=== PATIENT | female | born 1970 | race Caucasian/White ===

== ENCOUNTER → 2018-01-27 11:14 | Outpatient (CLI) | payer BC, SELFPAY ==
[2018-01-27 14:30] LABS: Alanine Aminotransferase 88 U/L (12-78); Albumin Level 3.8 gm/dL (3.4-5.0); Albumin/Globulin Ratio 1.1 (1.1-1.8); Alkaline Phosphatase 59 U/L (46-116); Anion Gap 13.3 mEq/L (5-15); Aspartate Amino Transferase 98 U/L (15-37); Bilirubin,Total 0.3 mg/dL (0.2-1.0); Blood Urea Nitrogen 21 mg/dL (7-18); Calcium 9.1 mg/dL (8.5-10.1); Carbon Dioxide 27 mmol/L (21.0-32.0); Chloride 102 mmol/L (98-107); Chol/HDL Ratio 4.1 (1-3.5); Cholesterol 198 mg/dL (140-200); Creatinine,Serum 0.92 mg/dL (0.55-1.02); Estimated Glomerular Filt Rate 65 ml/min (>60); GFR (African American) 79 ML/MIN (>60); Globulin 3.4 gm/dl (1.3-3.2); Glucose 280 mg/dL (74-106); HDL Cholesterol 48 mg/dL (29-89); LDL Cholesterol 94 mg/dL (0-130); Potassium 4.3 mmoL/L (3.5-5.1); Sodium 138 mmol/L (136-145); Thyroid Stimulating Hormone 3.34 uIU/ml (0.358-3.740); Total Protein,Serum 7.2 gm/dL (6.4-8.2); Triglycerides 279 mg/dL (30-200); VLDL Cholesterol 56 mg/dL (0-40)
[2018-01-27 14:52] LABS: Hemoglobin A1C 7.2 % (0.0-7.0)
[2018-01-28 12:37] LABS: Vitamin D 25 Hydroxy 24.8 ng/mL (30.0-100.0)
[2018-02-01 11:23] LABS: Hep A Ab, IgM Negative (Negative); Hepatitis B Core Antibody IgM Negative (Negative); Hepatitis B Surface Antigen Negative (Negative)
[2018-02-02 11:25] LABS: Hepatitis C Antibody <0.1 s/co ratio (0.0-0.9)
== END ==
PROVIDERS: Internal Medicine Adolescent Medicine; PCP Nurse Practitioner Family; Visit Provider Nurse Practitioner Family
DX: Z00.00 Encounter for general adult medical examination without abnormal findings (principal); E11.40 Type 2 diabetes mellitus with diabetic neuropathy, unspecified; I10 Essential (primary) hypertension; E03.9 Hypothyroidism, unspecified; E55.9 Vitamin D deficiency, unspecified; R74.8 Abnormal levels of other serum enzymes
CPT/HCPCS: 36415; 80053; 80061; 80074; 82652; 83036; 84443

== ENCOUNTER → 2018-02-11 08:38 | Outpatient (CLI) | payer BC, SELFPAY ==
--- NOTE | 2018-02-11 08:45 | US_ITS ---
US liver HISTORY: ITS.REASON: ELEVATED LIVER ENZYMES ORDERING PHYSICIAN: Alaina Boykin PATIENT AGE: 48 years COMPARISON: None FINDINGS: PANCREAS:Unremarkable. No obvious mass or abnormal fluid collection. No ductal dilatation LIVER:There is fatty liver. No focal liver lesions demonstrated. No biliary dilatation. There is appropriate directional blood flow within a nondilated portal vein RIGHT KIDNEY:Unremarkable. Normal size and echogenicity. No hydronephrosis Prior cholecystectomy. Common bile duct is normal at 4 mm. IMPRESSION: Fatty liver otherwise negative right upper quadrant ultrasound. Prior cholecystectomy
== END ==
PROVIDERS: Family Provider Nurse Practitioner Family; PCP Nurse Practitioner Family; Visit Provider Nurse Practitioner Family
DX: R74.8 Abnormal levels of other serum enzymes (principal)
CPT/HCPCS: 76705

== ENCOUNTER → 2018-08-16 14:39 | Outpatient (CLI) | payer BC, SELFPAY ==
[2018-08-16 14:57] LABS: Basophils % 0.3 % (0.1-2.0); Eosinophils # 0.2 K/mm3 (0.0-0.4); Eosinophils % 2.5 % (0.1-12.0); Hematocrit 42.6 % (37.0-47.0); Hemoglobin 14.1 g/dL (12.2-16.2); Lymphocytes % 25.3 % (10-50); Mean Corpuscular HGB Conc 33.1 g/dL (31.8-35.4); Mean Corpuscular Hemoglobin 27.8 pg (27.0-31.2); Mean Corpuscular Volume 84.1 fl (81-99); Mean Platelet Volume 7.9 fl (7.4-10.4); Monocytes # 0.4 K/mm3 (0.1-1.0); Monocytes % 4.9 % (1.7-9.3); Neutrophils # 5.4 K/mm3 (1.8-7.8); Platelet Count 357 K/mm3 (142-424); Red Blood Count 5.06 M/mm3 (4.20-5.40); Red Cell Distribution Width 13.9 % (11.5-17.5); White Blood Count 8.1 K/mm3 (4.8-10.8)
[2018-08-16 15:50] LABS: Alanine Aminotransferase 49 U/L (12-78); Albumin/Globulin Ratio 1.1 (1.1-1.8); Alkaline Phosphatase 46 U/L (46-116); Anion Gap 18.2 mEq/L (5-15); Aspartate Amino Transferase 28 U/L (15-37); Bilirubin,Total 0.4 mg/dL (0.2-1.0); Blood Urea Nitrogen 23 mg/dL (7-18); Calcium 9.6 mg/dL (8.5-10.1); Carbon Dioxide 21 mmol/L (21.0-32.0); Chloride 105 mmol/L (98-107); Chol/HDL Ratio 7.3 (1-3.5); Cholesterol 278 mg/dL (140-200); Creatinine,Serum 1.02 mg/dL (0.55-1.02); Estimated Glomerular Filt Rate 57 ml/min (>60); Free Thyroxine Index 2.6 ug/dL (5.93-13.13); GFR (African American) 69 ML/MIN (>60); Globulin 3.8 gm/dl (1.3-3.2); Glucose 101 mg/dL (74-106); HDL Cholesterol 38 mg/dL (29-89); LDL Cholesterol 201 mg/dL (0-130); Potassium 4.2 mmoL/L (3.5-5.1); Sodium 140 mmol/L (136-145); T4 (Thyroxine) 7.4 ug/dl (4.7-13.3); Thyroid Stimulating Hormone 0.97 uIU/ml (0.358-3.740); Total Protein,Serum 7.8 gm/dL (6.4-8.2); Triglycerides 194 mg/dL (30-200); Triiodothryronine (T3) Uptake 35 % (31-39); VLDL Cholesterol 39 mg/dL (0-40)
[2018-08-18 08:18] LABS: Vitamin B12 206 pg/mL (232-1245)
== END ==
PROVIDERS: Visit Provider Internal Medicine Adolescent Medicine
DX: E78.5 Hyperlipidemia, unspecified (principal); E11.42 Type 2 diabetes mellitus with diabetic polyneuropathy
CPT/HCPCS: 36415; 80053; 80061; 82607; 83036; 84436; 84443; 84479; 85025

== ENCOUNTER → 2018-11-16 09:51 | Outpatient (CLI) | payer BC, SELFPAY ==
[2018-11-16 11:42] LABS: Anion Gap 17.2 mEq/L (5-15); Blood Urea Nitrogen 22 mg/dL (7-18); Calcium 9.5 mg/dL (8.5-10.1); Carbon Dioxide 24 mmol/L (21.0-32.0); Chloride 106 mmol/L (98-107); Creatinine,Serum 0.82 mg/dL (0.55-1.02); Estimated Glomerular Filt Rate 74 ml/min (>60); GFR (African American) 89 ML/MIN (>60); Glucose 105 mg/dL (74-106); Potassium 4.2 mmoL/L (3.5-5.1); Sodium 143 mmol/L (136-145)
== END ==
PROVIDERS: Visit Provider Specialist
DX: E78.5 Hyperlipidemia, unspecified (principal); I10 Essential (primary) hypertension; I63.9 Cerebral infarction, unspecified; I65.29 Occlusion and stenosis of unspecified carotid artery; G47.33 Obstructive sleep apnea (adult) (pediatric)
CPT/HCPCS: 36415; 80048

== ENCOUNTER → 2018-11-17 10:38 | Outpatient (CLI) | payer BC, SELFPAY ==
--- NOTE | 2018-11-17 10:42 | CT_ITS ---
CT angio head INDICATION: Headache, carotid stenosis ITS.REASON: cva, carotid stenosis ORDERING PHYSICIAN: Danielle Choi MD PATIENT AGE: 48 years COMPARISON: None TECHNIQUE: Contrast Used:100ml Optiray 350 Oral Contrast: Axial images were obtained. Sagittal and coronal reformatted images are reviewed as well. All CT scans at the facility use one or more dose reduction, viz: automated exposure control, ma/kV adjustment per patient size (including targeted exams where dose is matched to indication, i.e. head), or iterative reconstruction technique. FINDINGS: There is calcific plaque involving the cavernous portion of the carotid arteries on both sides. This plaque is causing a 50% stenosis of the ICA. Less than 50% stenosis noted within the left ICA within the cavernous area. No obvious aneurysm or intracranial occlusion. No AVM. There is an old left occipital infarction and there are bilateral lacunar infarctions of the basal ganglia.. The basilar artery is supplied only by the dominant left vertebral artery. IMPRESSION: 1. Intracranial atherosclerotic changes of the carotid arteries with 50% stenosis of the ICA in the cavernous region on the right and less than 50% stenosis on the left. 2. 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 Of note, there is a moderate to high-grade stenosis involving the ostium of the left vertebral artery off of the subclavian artery as seen on the CTA of the neck
--- NOTE | 2018-11-17 10:42 | CT_ITS ---
CT angio neck INDICATION: Headaches, carotid stenosis ITS.REASON: cva, carotid stenosis ORDERING PHYSICIAN: Danielle Choi MD PATIENT AGE: 48 years COMPARISON: None TECHNIQUE: Contrast Used:100ml Optiray 350 Oral Contrast: Axial images were obtained. Sagittal and coronal reformatted images are reviewed as well. All CT scans at the facility use one or more dose reduction, viz: automated exposure control, ma/kV adjustment per patient size (including targeted exams where dose is matched to indication, i.e. head), or iterative reconstruction technique. FINDINGS: The aortic arch show some mild atheromatous calcification. No significant stenosis of the great vessels. Right carotid: Minimal amount of plaque is present at the ostium of the right common carotid artery with no significant stenosis Mild atheromatous change at the ostium of the right internal carotid artery with approximately 10-15 % stenosis. Incidental note is made of medial retropharyngeal location of the right internal carotid artery. Left carotid: Mild atheromatous change at the ostium of the left internal carotid with 10-15% stenosis. The mid and distal aspect of the left ICA has an unremarkable appearance Vertebrals: The right vertebral is very small and does not contribute to the basilar system. There is short segment high-grade stenosis of the ostium of the left vertebral artery of approximately 60% with mild poststenotic dilatation. The remaining vertebral artery on the left has an unremarkable appearance within the neck. IMPRESSION: 1. Only mild amount of plaque at the ostium of both internal carotids with 10-15% stenosis. No significant stenosis of the carotid. 2. Very small/atrophic right vertebral artery which does not appear to contribute to the basilar system 3. Moderate to high-grade stenosis of the ostium of the left vertebral artery of approximately 60% with mild poststenotic dilatation. Does the patient has vertebrobasilar insufficiency symptoms?
== END ==
PROVIDERS: PCP Nurse Practitioner Family; Visit Provider Specialist
DX: I63.9 Cerebral infarction, unspecified (principal); I65.29 Occlusion and stenosis of unspecified carotid artery; I67.2 Cerebral atherosclerosis; E78.5 Hyperlipidemia, unspecified; G47.33 Obstructive sleep apnea (adult) (pediatric); I10 Essential (primary) hypertension
CPT/HCPCS: 70496; 70498; Q9967

== ENCOUNTER → 2019-10-28 07:07 | Outpatient (CLI) | payer BC, SELFPAY ==
[2019-10-28 07:30] LABS: Basophils # 0.1 K/mm3 (0-0.2); Basophils % 0.5 % (0.1-2.0); Eosinophils # 0.2 K/mm3 (0.0-0.4); Eosinophils % 2.4 % (0.1-12.0); Hematocrit 43.8 % (37.0-47.0); Hemoglobin 14.6 g/dL (12.2-16.2); Lymphocytes # 3.1 K/mm3 (0.7-4.5); Lymphocytes % 32.8 % (10-50); Mean Corpuscular HGB Conc 33.3 g/dL (31.8-35.4); Mean Corpuscular Hemoglobin 28.1 pg (27.0-31.2); Mean Corpuscular Volume 84.6 fl (81-99); Mean Platelet Volume 8.2 fl (7.4-10.4); Monocytes # 0.4 K/mm3 (0.1-1.0); Monocytes % 4.4 % (1.7-9.3); Neutrophils # 5.7 K/mm3 (1.8-7.8); Neutrophils % 59.9 % (37.0-80.0); Platelet Count 268 K/mm3 (142-424); Red Blood Count 5.18 M/mm3 (4.20-5.40); Red Cell Distribution Width 14.6 % (11.5-17.5); White Blood Count 9.5 K/mm3 (4.8-10.8)
[2019-10-28 08:06] LABS: Hemoglobin A1C 6.5 % (4.0-6.0)
[2019-10-28 14:50] LABS: Alanine Aminotransferase 27 U/L (12-78); Albumin Level 4.5 g/dl (3.5-5.0); Albumin/Globulin Ratio 1.7 (1.1-1.8); Alkaline Phosphatase 82 U/L (38-126); Anion Gap 15.6 mEq/L (5-15); Aspartate Amino Transferase 32 U/L (14-36); Bilirubin,Total 0.2 mg/dl (0.2-1.3); Blood Urea Nitrogen 24 mg/dl (7-17); Calcium 9.6 mg/dl (8.4-10.2); Carbon Dioxide 25 mmol/L (22.0-30.0); Chloride 101 mmol/L (98-107); Chol/HDL Ratio 3.1 (1-3.5); Cholesterol 144 mg/dl (140-200); Estimated Glomerular Filt Rate 76 ml/min (>60); GFR (African American) 92 ML/MIN (>60); Globulin 2.7 g/dL (1.3-3.2); Glucose 130 mg/dl (74-100); HDL Cholesterol 47 mg/dl (40-60); Potassium 4.6 mmoL/L (3.5-5.1); Sodium 137 mmol/L (136-145); Total Protein,Serum 7.2 g/dl (6.3-8.2); Triglycerides 177 mg/dl (30-150); VLDL Cholesterol 35 mg/dL (0-40)
[2019-10-28 15:01] LABS: Direct LDL Cholesterol 88.46 mg/dL (100-129)
[2019-10-28 15:21] LABS: Thyroid Stimulating Hormone 0.86 uIU/mL (0.465-4.68)
== END ==
PROVIDERS: Visit Provider Internal Medicine Adolescent Medicine
DX: E78.5 Hyperlipidemia, unspecified (principal); E03.9 Hypothyroidism, unspecified; E11.42 Type 2 diabetes mellitus with diabetic polyneuropathy; Z79.84 Long term (current) use of oral hypoglycemic drugs
CPT/HCPCS: 36415; 80053; 80061; 83036; 84443; 85025

== ENCOUNTER → 2020-05-01 12:39 | Outpatient (CLI) | payer BC, SELFPAY ==
[2020-05-01 13:03] LABS: Basophils # 0.1 K/mm3 (0-0.2); Basophils % 0.7 % (0.1-2.0); Eosinophils # 0.2 K/mm3 (0.0-0.4); Eosinophils % 2.5 % (0.1-12.0); Hematocrit 49.1 % (37.0-47.0); Hemoglobin 15.7 g/dL (12.2-16.2); Lymphocytes # 2.5 K/mm3 (0.7-4.5); Lymphocytes % 25.6 % (10-50); Mean Corpuscular HGB Conc 31.9 g/dL (31.8-35.4); Mean Corpuscular Hemoglobin 28.2 pg (27.0-31.2); Mean Corpuscular Volume 88.3 fl (81-99); Mean Platelet Volume 8.2 fl (7.4-10.4); Monocytes # 0.4 K/mm3 (0.1-1.0); Monocytes % 3.8 % (1.7-9.3); Neutrophils # 6.5 K/mm3 (1.8-7.8); Neutrophils % 67.5 % (37.0-80.0); Platelet Count 308 K/mm3 (142-424); Red Blood Count 5.56 M/mm3 (4.20-5.40); Red Cell Distribution Width 14.9 % (11.5-17.5); White Blood Count 9.6 K/mm3 (4.8-10.8)
[2020-05-01 14:23] LABS: Alanine Aminotransferase 43 U/L (12-78); Albumin Level 5.2 g/dl (3.5-5.0); Albumin/Globulin Ratio 1.5 (1.1-1.8); Alkaline Phosphatase 64 U/L (38-126); Anion Gap 20.1 mEq/L (5-15); Aspartate Amino Transferase 37 U/L (14-36); Bilirubin,Total 0.6 mg/dl (0.2-1.3); Blood Urea Nitrogen 30 mg/dl (7-17); Calcium 10.8 mg/dl (8.4-10.2); Carbon Dioxide 25 mmol/L (22.0-30.0); Chloride 103 mmol/L (98-107); Chol/HDL Ratio 4.2 (1-3.5); Cholesterol 176 mg/dl (140-200); Estimated Glomerular Filt Rate 66 ml/min (>60); GFR (African American) 80 ML/MIN (>60); Globulin 3.4 g/dL (1.3-3.2); Glucose 157 mg/dl (74-100); HDL Cholesterol 42 mg/dl (40-60); Potassium 5.1 mmoL/L (3.5-5.1); Sodium 143 mmol/L (136-145); Total Protein,Serum 8.6 g/dl (6.3-8.2); Triglycerides 170 mg/dl (30-150); VLDL Cholesterol 34 mg/dL (0-40)
[2020-05-01 14:39] LABS: 25-OH Vitamin D, Total 26.1 ng/mL (30-100)
[2020-05-01 14:54] LABS: Thyroid Stimulating Hormone 0.36 uIU/mL (0.465-4.68)
[2020-05-01 17:40] LABS: Hemoglobin A1C 6.8 % (4.0-6.0)
== END ==
PROVIDERS: Visit Provider Internal Medicine Adolescent Medicine
DX: E11.40 Type 2 diabetes mellitus with diabetic neuropathy, unspecified (principal); E03.9 Hypothyroidism, unspecified; E55.9 Vitamin D deficiency, unspecified; Z79.84 Long term (current) use of oral hypoglycemic drugs
CPT/HCPCS: 36415; 80053; 80061; 82306; 83036; 84443; 85025

== ENCOUNTER → 2020-08-31 09:34 | Outpatient (CLI) | payer BC, SELFPAY ==
[2020-08-31 12:12] LABS: Chloride 106 mmol/L (98-107); Sodium 139 mmol/L (136-145)
[2020-08-31 12:13] LABS: Potassium 4.6 mmoL/L (3.5-5.1)
[2020-08-31 12:15] LABS: Blood Urea Nitrogen 20 mg/dl (7-17); Estimated Glomerular Filt Rate 88 ml/min (>60); GFR (African American) 106 ML/MIN (>60)
[2020-08-31 12:16] LABS: Anion Gap 17.6 mEq/L (5-15); Calcium 9.7 mg/dl (8.4-10.2); Carbon Dioxide 20 mmol/L (22.0-30.0); Glucose 142 mg/dl (74-100)
[2020-08-31 12:31] LABS: Hemoglobin A1C 6.9 % (4.0-6.0)
== END ==
PROVIDERS: Visit Provider Internal Medicine Adolescent Medicine
DX: E11.40 Type 2 diabetes mellitus with diabetic neuropathy, unspecified (principal); Z79.84 Long term (current) use of oral hypoglycemic drugs
CPT/HCPCS: 36415; 80048; 83036

== ENCOUNTER → 2021-03-17 17:13 | Outpatient (CLI) | payer BC, SELFPAY ==
[2021-03-17 17:55] LABS: Basophils # 0.1 K/mm3 (0-0.2); Basophils % 1.7 % (0.1-2.0); Eosinophils # 0.2 K/mm3 (0.0-0.4); Eosinophils % 3.2 % (0.1-12.0); Hematocrit 45.5 % (37.0-47.0); Hemoglobin 15.2 g/dL (12.2-16.2); Lymphocytes # 2.7 K/mm3 (0.7-4.5); Lymphocytes % 39.2 % (10-50); Mean Corpuscular HGB Conc 33.3 g/dL (31.8-35.4); Mean Corpuscular Hemoglobin 28.7 pg (27.0-31.2); Mean Corpuscular Volume 86.2 fl (81-99); Mean Platelet Volume 8.8 fl (7.4-10.4); Monocytes # 0.3 K/mm3 (0.1-1.0); Monocytes % 4.6 % (1.7-9.3); Neutrophils # 3.6 K/mm3 (1.8-7.8); Neutrophils % 51.3 % (37.0-80.0); Platelet Count 375 K/mm3 (142-424); Red Blood Count 5.28 M/mm3 (4.20-5.40); Red Cell Distribution Width 14.1 % (11.5-17.5); White Blood Count 6.9 K/mm3 (4.8-10.8)
[2021-03-17 18:05] LABS: Hemoglobin A1C 6.5 % (4.0-6.0)
[2021-03-17 18:59] LABS: Alanine Aminotransferase 42 U/L (12-78); Albumin Level 4.8 g/dl (3.5-5.0); Albumin/Globulin Ratio 1.7 (1.1-1.8); Alkaline Phosphatase 57 U/L (38-126); Anion Gap 18.1 mEq/L (5-15); Aspartate Amino Transferase 35 U/L (14-36); Bilirubin,Total 0.3 mg/dl (0.2-1.3); Blood Urea Nitrogen 29 mg/dl (7-17); Calcium 10.4 mg/dl (8.4-10.2); Carbon Dioxide 26 mmol/L (22.0-30.0); Chloride 101 mmol/L (98-107); Chol/HDL Ratio 3.1 (1-3.5); Cholesterol 137 mg/dl (140-200); Estimated Glomerular Filt Rate 65 ml/min (>60); GFR (African American) 79 ML/MIN (>60); Globulin 2.8 g/dL (1.3-3.2); Glucose 145 mg/dl (74-100); HDL Cholesterol 44 mg/dl (40-60); Potassium 5.1 mmoL/L (3.5-5.1); Sodium 140 mmol/L (136-145); Total Protein,Serum 7.6 g/dl (6.3-8.2); Triglycerides 218 mg/dl (30-150); VLDL Cholesterol 44 mg/dL (0-40)
[2021-03-17 19:11] LABS: Direct LDL Cholesterol 104.17 mg/dL (100-129)
[2021-03-17 19:33] LABS: Thyroid Stimulating Hormone 0.28 uIU/mL (0.465-4.68)
== END ==
PROVIDERS: Visit Provider Internal Medicine Adolescent Medicine
DX: R42 Dizziness and giddiness (principal); E11.40 Type 2 diabetes mellitus with diabetic neuropathy, unspecified; E03.9 Hypothyroidism, unspecified; Z79.84 Long term (current) use of oral hypoglycemic drugs
CPT/HCPCS: 36415; 80053; 80061; 83036; 84443; 85025

== ENCOUNTER → 2021-05-07 10:16 | Outpatient (CLI) | payer BC, SELFPAY | PROVIDERS: PCP Internal Medicine Adolescent Medicine; Visit Provider Nurse Practitioner | DX: U07.1 COVID-19 (principal) | CPT/HCPCS: C9803; U0003; U0005 ==

== ENCOUNTER → 2021-05-16 15:12 | Outpatient (CLI) | payer BC, SELFPAY | PROVIDERS: Visit Provider Nurse Practitioner | DX: U07.1 COVID-19 (principal) | CPT/HCPCS: C9803; U0003; U0005 ==

== ENCOUNTER → 2021-09-24 10:20 | Outpatient (CLI) | payer BC, SELFPAY ==
--- NOTE | 2021-09-24 10:35 | MM_ITS ---
PROCEDURE INFORMATION: Exam: MG Bilateral Screening 3D Mammography Exam date and time: 09/24/2021 10:30 AM Age: 51 years old Clinical indication: Screening examination TECHNIQUE: Imaging protocol: Bilateral Screening tomosynthesis and 2D mammography including computer-aided detection (CAD) when performed. COMPARISON: 1. MG [facility]MSB DIG MAMM-SCREEN TOMY 03/12/2016 11:19 AM 2. MG DMSB DIG MAMM-SCREEN TOMY 12/30/2012 10:52 AM FINDINGS: MAMMOGRAPHY: Breast composition: The breast is heterogeneously dense, which may obscure small masses. Mass: None. Architectural distortion: No new or suspicious architectural distortion. Calcifications: No new or suspicious calcifications are present Asymmetric density: No new or suspicious asymmetric density is present Skin thickening: None. Axillary adenopathy: None. IMPRESSION: No mammographic evidence of malignancy. Recommend annual screening mammography unless otherwise clinically indicated. ASSESSMENT: BI-RADS category 1: Negative
== END ==
PROVIDERS: PCP Internal Medicine Adolescent Medicine; Visit Provider Nurse Practitioner Family
DX: Z12.31 Encounter for screening mammogram for malignant neoplasm of breast (principal)
CPT/HCPCS: 77063; 77067

== ENCOUNTER → 2021-10-31 16:23 | Outpatient (CLI) | payer BC, SELFPAY ==
[2021-10-31 18:06] LABS: Thyroid Stimulating Hormone 0.56 uIU/mL (0.465-4.68)
[2021-11-02 08:13] LABS: Estradiol 42.7 pg/mL (.); Progesterone 5.6 ng/mL (.)
[2021-11-07 17:11] LABS: Testosterone, Total, LC/MS 12.1 ng/dL (.); Testosterone,Free 0.7 pg/mL (0.0-4.2)
== END ==
PROVIDERS: Visit Provider Obstetrics & Gynecology
DX: E03.9 Hypothyroidism, unspecified (principal)
CPT/HCPCS: 36415; 82670; 84144; 84402; 84403; 84443

== ENCOUNTER → 2021-11-11 16:21 | Outpatient (CLI) | payer BC, SELFPAY | PROVIDERS: PCP Internal Medicine Adolescent Medicine; Visit Provider Nurse Practitioner Family | DX: R06.83 Snoring; G47.33 Obstructive sleep apnea (adult) (pediatric) | CPT/HCPCS: G0399 ==

== ENCOUNTER → 2021-12-10 16:44 | Outpatient (CLI) | payer BC, SELFPAY ==
[2021-12-18 16:13] LABS: Cortisol,F,ug/24hr,U 10 ug/24 hr (6-42); Cortisol,F,ug/L,U 12 ug/L (Undefined)
== END ==
PROVIDERS: PCP Internal Medicine Adolescent Medicine; Visit Provider Obstetrics & Gynecology
DX: R63.5 Abnormal weight gain (principal)
CPT/HCPCS: 82530

== ENCOUNTER → 2022-02-24 10:07 | Outpatient (CLI) | payer BC, SELFPAY ==
[2022-02-24 18:28] LABS: Alanine Aminotransferase 37 U/L (12-78); Albumin Level 4.6 g/dl (3.5-5.0); Albumin/Globulin Ratio 1.5 (1.1-1.8); Alkaline Phosphatase 104 U/L (38-126); Anion Gap 19.9 mEq/L (5-15); Aspartate Amino Transferase 39 U/L (14-36); Bilirubin,Total 0.5 mg/dl (0.2-1.3); Blood Urea Nitrogen 33 mg/dl (7-17); Calcium 10.5 mg/dl (8.4-10.2); Carbon Dioxide 22 mmol/L (22.0-30.0); Chloride 105 mmol/L (98-107); Chol/HDL Ratio 5.5 (1-3.5); Cholesterol 224 mg/dl (140-200); Estimated Glomerular Filt Rate 65 ml/min (>60); GFR (African American) 79 ML/MIN (>60); Glucose 175 mg/dl (74-100); HDL Cholesterol 41 mg/dl (40-60); Potassium 4.9 mmoL/L (3.5-5.1); Sodium 142 mmol/L (136-145); Total Protein,Serum 7.6 g/dl (6.3-8.2); Triglycerides 301 mg/dl (30-150); VLDL Cholesterol 60 mg/dL (0-40)
[2022-02-24 18:39] LABS: Direct LDL Cholesterol 139.82 mg/dL (100-129)
[2022-02-24 18:44] LABS: Free T4 (Free Thyroxine) 1.23 ng/dl (0.78-2.19)
[2022-02-24 18:45] LABS: Basophils # 0.1 K/mm3 (0-0.2); Eosinophils # 0.2 K/mm3 (0.0-0.4); Eosinophils % 2.9 % (0.1-12.0); Hematocrit 45.2 % (37.0-47.0); Hemoglobin 14.6 g/dL (12.2-16.2); Lymphocytes % 25.4 % (10-50); Mean Corpuscular HGB Conc 32.2 g/dL (31.8-35.4); Mean Corpuscular Hemoglobin 28.4 pg (27.0-31.2); Mean Platelet Volume 10.2 fl (7.4-10.4); Monocytes # 0.3 K/mm3 (0.1-1.0); Monocytes % 4.3 % (1.7-9.3); Neutrophils # 5.3 K/mm3 (1.8-7.8); Neutrophils % 66.4 % (37.0-80.0); Platelet Count 336 K/mm3 (142-424); Red Blood Count 5.13 M/mm3 (4.20-5.40); Red Cell Distribution Width 13.9 % (11.5-17.5); White Blood Count 7.9 K/mm3 (4.8-10.8)
[2022-02-24 18:47] LABS: 25-OH Vitamin D, Total 29.6 ng/mL (30-100)
[2022-02-24 18:59] LABS: Thyroid Stimulating Hormone 0.21 uIU/mL (0.465-4.68)
[2022-02-24 19:08] LABS: Hemoglobin A1C 7.3 % (4.0-6.0)
[2022-02-24 19:18] LABS: Vitamin B12 279 pg/mL (239-931)
== END ==
PROVIDERS: PCP Nurse Practitioner; Visit Provider Nurse Practitioner
DX: E03.9 Hypothyroidism, unspecified (principal); I10 Essential (primary) hypertension; E11.9 Type 2 diabetes mellitus without complications; E78.5 Hyperlipidemia, unspecified; E66.9 Obesity, unspecified; Z68.33 Body mass index [BMI] 33.0-33.9, adult; Z79.84 Long term (current) use of oral hypoglycemic drugs
CPT/HCPCS: 80053; 80061; 82043; 82306; 82607; 83036; 84439; 84443; 85025

== ENCOUNTER 2022-05-09 19:09 | Emergency (ER) | payer BC, SELFPAY ==
[2022-05-09 19:10] VITALS: BP 135/92; PULSE 74; RESP 16; TEMP 36.7; O2SAT 97; BMI 35.2
--- NOTE | 2022-05-09 19:20 | ECG_ITS ---
APPROVED REPORT Exam: Resting ECG HR:79 bpm ECG Measurements Heart Rate 79 AXES ID 196 P 47 QRSd 81 QRS 46 QT 366 T 49 QTc 400 Conclusion SINUS RHYTHM LOW QRS VOLTAGE IN PRECORDIAL LEADS [QRS DEFLECTION < 1.0 mV IN CHEST LEADS] BORDERLINE ECG UNCONFIRMED REPORT Electronically signed by : Demetrio Mckeon MD 05/11/2022 19:25:11
--- NOTE | 2022-05-09 19:25 | CT_ITS ---
PROCEDURE INFORMATION: Exam: CT Head Without Contrast Exam date and time: 05/09/2022 7:36 PM Age: 52 years old Clinical indication: Stroke-like symptoms; Altered mental status/memory loss; Additional info: Neuro deficit, stroke suspected TECHNIQUE: Imaging protocol: Computed tomography of the head without contrast. Radiation optimization: All CT scans at this facility use at least one of these dose optimization techniques: automated exposure control; mA and/or kV adjustment per patient size (includes targeted exams where dose is matched to clinical indication); or iterative reconstruction. Other technique: STROKE PROTOCOL was implemented. COMPARISON: [facility] CT angio head 11/17/2018 11:01 AM FINDINGS: Brain: No intracranial hemorrhage. There is low attenuation change in the white matter most consistent with chronic age related small vessel ischemic change. No acute territorial infarction is seen. These can be initially occult on head CT. Cerebral ventricles: No ventriculomegaly. Paranasal sinuses: Visualized sinuses are unremarkable. No fluid levels. Mastoid air cells: Visualized mastoid air cells are well aerated. Bones/joints: Unremarkable. No acute fracture. Soft tissues: Unremarkable. Vasculature: Dense atherosclerosis. Other findings: ASPECTS score 10. IMPRESSION: 1. No intracranial hemorrhage. 2. There is low attenuation change in the white matter most consistent with chronic age related small vessel ischemic change. No acute territorial infarction is seen. These can be initially occult on head CT. Chronic appearing bilateral lacunar and left [employer] distribution infarctions. 3. ASPECTS score 10.
--- NOTE | 2022-05-09 19:25 | CT_ITS ---
PROCEDURE INFORMATION: Exam: CTA Head With Contrast, Arteriography Exam date and time: 05/09/2022 7:39 PM Age: 52 years old Clinical indication: Weakness; Additional info: Neuro deficit, stroke suspected, right sided weakness TECHNIQUE: Imaging protocol: Computed tomographic angiography of the head with contrast. Exam focused on the arteries. 3D rendering (Not supervised by radiologist): MIP and/or 3D reconstructed images were created by the technologist. Radiation optimization: All CT scans at this facility use at least one of these dose optimization techniques: automated exposure control; mA and/or kV adjustment per patient size (includes targeted exams where dose is matched to clinical indication); or iterative reconstruction. Contrast material: ISOVUE 370; Contrast volume: 100 ml; Contrast route: INTRAVENOUS (IV); COMPARISON: 1. [facility] CT angio head 11/17/2018 11:[address] HEAD/BRAIN WO CON 05/09/2022 7:36 PM FINDINGS: ANTERIOR CIRCULATION: Right internal carotid artery: Intracranial segment is patent with no significant stenosis. No aneurysm. Right middle cerebral artery: No occlusion or significant stenosis. No aneurysm. Right anterior cerebral artery: No occlusion or significant stenosis. No aneurysm. Left internal carotid artery: Limited atherosclerosis, primarily in the right and left carotid siphons where there are mild stenoses. Left middle cerebral artery: No occlusion or significant stenosis. No aneurysm. Left anterior cerebral artery: No occlusion or significant stenosis. No aneurysm. POSTERIOR CIRCULATION: Right vertebral artery: See Left vertebral artery finding. Left vertebral artery: Dominant left vertebral artery. There is chronic occlusion of the very diminutive distal right vertebral artery. Basilar artery: No occlusion or significant stenosis. No aneurysm. Right posterior cerebral artery: No occlusion or significant stenosis. No aneurysm. Left posterior cerebral artery: Chronic multifocal areas occlusion or near occlusion in the diminutive left posterior cerebral artery similar previous examination. Other arteries: No acute actionable abnormality of the large intracranial arteries. Brain: See Other arteries finding. Cerebral ventricles: No ventriculomegaly. Bones/joints: Unremarkable. No acute fracture. Soft tissues: Unremarkable. Other findings: Please see noncontrast head CT report. IMPRESSION: 1. Dominant left vertebral artery. There is chronic occlusion of the very diminutive distal right vertebral artery. 2. Chronic multifocal areas occlusion or near occlusion in the diminutive left posterior cerebral artery similar to the previous examination. 3. No acute actionable abnormality of the large intracranial arteries.
--- NOTE | 2022-05-09 19:25 | CT_ITS ---
PROCEDURE INFORMATION: Exam: CTA Neck With Contrast Exam date and time: 05/09/2022 7:39 PM Age: 52 years old Clinical indication: Weakness; Additional info: Neuro deficit, stroke suspected TECHNIQUE: Imaging protocol: Computed tomographic angiography of the neck with contrast. 3D rendering (Not supervised by radiologist): MIP and/or 3D reconstructed images were created by the technologist. Radiation optimization: All CT scans at this facility use at least one of these dose optimization techniques: automated exposure control; mA and/or kV adjustment per patient size (includes targeted exams where dose is matched to clinical indication); or iterative reconstruction. Contrast material: ISOVUE 370; Contrast volume: 100 ml; Contrast route: INTRAVENOUS (IV); COMPARISON: [facility] CT angio neck 11/17/2018 11:01 AM FINDINGS: Right common carotid artery: No stenosis. No dissection or occlusion. Right internal carotid artery: No stenosis of the extracranial segment. No dissection or occlusion. Right external carotid artery: No occlusion or stenosis of the origin. Left common carotid artery: No stenosis. No dissection or occlusion. Left internal carotid artery: No stenosis of the extracranial segment. No dissection or occlusion. Left external carotid artery: No occlusion or stenosis of the origin. Right vertebral artery: Very diminutive right vertebral artery, with chronic occlusion of the intracranial component. Left vertebral artery: Dominant left vertebral artery. Redemonstrated is a short segment near occlusion at the origin of the vessel with the remainder of the vessel widely patent. Soft tissues: Normal. No significant soft tissue swelling. Bones/joints: Dgyi-wr-abchugmi cervical spondylosis without CT evidence of critical stenosis. IMPRESSION: 1. Dominant left vertebral artery. Redemonstrated is a short segment near occlusion at the origin of the vessel with the remainder of the vessel widely patent. 2. Very diminutive right vertebral artery, with chronic occlusion of the intracranial component. REFERENCES: NASCET CRITERIA. The degree of stenosis in the cervical segment of the internal carotid artery is based on NASCET criteria. Normal is no stenosis. Mild is less than 50% stenosis. Moderate is 50-69% stenosis. Severe is 70% to 99% stenosis. Total occlusion is no detectable patent lumen.
[2022-05-09 19:45] VITALS: BP 128/88; PULSE 84; O2SAT 99
[2022-05-09 19:47] LABS: Chloride 103 mmol/L (98-107); Sodium 142 mmol/L (136-145)
--- NOTE | 2022-05-09 19:47 | HMH.EDNEU ---
Discharge Plan Disposition Patient Disposition: Home, Self-Care Prescriptions Prescriptions: New cephalexin [cephalexin] 500 mg capsule 500 mg PO TID Qty: 21 0RF No Action levothyroxine 75 mcg capsule 75 mcg PO DAILY Qty: 90 1RF rosuvastatin 40 mg tablet 40 mg PO HS Qty: 90 1RF metformin 1,000 mg tablet 1,000 mg PO DAILY Qty: 90 1RF lisinopril 20 mg tablet 20 mg PO DAILY Qty: 90 duloxetine 60 mg capsule,delayed release(DR/EC) 60 mg PO BID Qty: 180 sitagliptin phosphate 50 mg tablet 50 mg PO DAILY Qty: 90 atenolol 50 mg tablet 50 mg PO DAILY Qty: 90 aspirin [Aspir-81] 81 mg tablet,delayed release (DR/EC) 81 mg PO DAILY cyclobenzaprine 10 mg tablet 10 mg PO DAILY PRN (Reason: muscle relaxer) Qty: 180 meclizine 25 mg tablet 25 mg PO DAILY PRN (Reason: Nausea) Qty: 270 pregabalin 100 mg capsule 100 mg PO BID Qty: 180 1RF fluticasone propionate [Flonase Allergy Relief] 50 mcg/actuation spray,suspension 2 spray intranasal DAILY Qty: 16 2RF Rx Instructions: administer into each nostril gemfibrozil 600 mg tablet 600 mg PO BID Qty: 180 0RF peg 3350-electrolytes 4,000 ML recon soln 240 ml PO Q15M Rx Instructions: until fecal effluent is clear Referrals Follow up/Referrals: Jj Ca MD [Primary Care Provider] - See instructions Danielle Choi MD [Staff Physician] - See instructions Clinical Impressions Clinical Impression: Numbness, UTI (urinary tract infection) Instructions Patient Instructions: DI for Urinary Tract Infection (UTI) Discharge ED Provider: Ulisses Moe Neuro HPI <Ulisses Moe MD - Last Filed: 05/09/22 20:19> General Chief Complaint: Neuro Symptoms/Deficit Stated Complaint: numbness Time Seen by Provider: 05/09/22 19:15 Mode of Arrival: Ambulatory Source of Information: Patient and Spouse Limitations: No Limitations Description of Symptoms (Recalled from ER Triage Doc. by RN): pt c/o bilateral arm numbess and rt leg numbness that started a hr ago. NIH scale 0. 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 Patient states that she does have chronic right-sided deficits but says that her arms and legs on the right side feel weaker than normal. She says that her numbness is also a little worse than normal to. She does have visual changes in her right eye which are chronic. She denies any slurred speech or facial droop. She says that this happened earlier today and she was hoping they would go away but it has persisted. She denies any bowel or bladder incontinence. Denies any new visual disturbance. Denies any chest or abdominal pain. Denies any fever or chills. Denies any dysuria. Related Data Home Medications Medication Instructions Recorded Confirmed aspirin 81 mg tablet,delayed 81 mg PO DAILY [facility] 10/28/18 03/10/22 release (Aspir-) atenolol 50 mg tablet 50 mg PO DAILY bp #90 tabs 10/28/18 03/10/22 duloxetine 60 mg capsule,delayed 60 mg PO BID Pain #180 caps 10/28/18 03/10/22 release lisinopril 20 mg tablet 20 mg PO DAILY bp #90 tabs 10/28/18 03/10/22 sitagliptin phosphate 50 mg tablet 50 mg PO DAILY Diabetes #90 tabs 10/28/18 03/10/22 peg 3350-electrolytes 236 240 ml PO Q15M bowel prep 11/10/21 03/10/22 gram-22.74 gram-6.74 gram-5.86 gram solution cyclobenzaprine 10 mg tablet 10 mg PO DAILY PRN muscle relaxer 02/25/22 03/10/22 #180 tabs meclizine 25 mg tablet 25 mg PO DAILY PRN Nausea #270 tabs 02/25/22 03/10/22 Previous Rx's Medication Instructions Recorded pregabalin 100 mg capsule 100 mg PO BID Pain #180 caps 02/25/22 levothyroxine 75 mcg capsule 75 mcg PO DAILY hypothyroid #90 03/10/22 caps metformin 1,000 mg tablet 1,000 mg PO DAILY Diabet
[2022-05-09 19:48] LABS: Potassium 4.2 mmoL/L (3.5-5.1)
[2022-05-09 19:50] LABS: Alanine Aminotransferase 31 U/L (12-78); Alkaline Phosphatase 108 U/L (38-126); Anion Gap 18.2 mEq/L (5-15); Aspartate Amino Transferase 45 U/L (14-36); Bilirubin,Total 0.5 mg/dl (0.2-1.3); Blood Urea Nitrogen 35 mg/dl (7-17); Carbon Dioxide 25 mmol/L (22.0-30.0); Cholesterol 225 mg/dl (140-200); Creatinine Clearance Estimated 75 mL/min (50-200); Estimated Glomerular Filt Rate 52 ml/min (>60); GFR (African American) 63 ML/MIN (>60); Triglycerides 301 mg/dl (30-150); VLDL Cholesterol 60 mg/dL (0-40)
[2022-05-09 19:51] LABS: Albumin Level 5.1 g/dl (3.5-5.0); Albumin/Globulin Ratio 1.2 (1.1-1.8); Calcium 9.8 mg/dl (8.4-10.2); Chol/HDL Ratio 5.4 (1-3.5); Globulin 4.3 g/dL (1.3-3.2); Glucose 120 mg/dl (74-100); HDL Cholesterol 42 mg/dl (40-60); Total Protein,Serum 9.4 g/dl (6.3-8.2)
--- NOTE | 2022-05-09 19:51 | PC.NURSE ---
PER ER DOC HE DID NOT WANT TO WAIT FOR LABS FOR CT, HE SAID TO GO AHEAD, SUSPECTS PT HAD A STROKE
[2022-05-09 19:52] LABS: Basophils # 0.2 K/mm3 (0-0.2); Basophils % 2.1 % (0.1-2.0); Eosinophils # 0.2 K/mm3 (0.0-0.4); Eosinophils % 1.9 % (0.1-12.0); Hematocrit 45.6 % (37.0-47.0); Lymphocytes # 3.1 K/mm3 (0.7-4.5); Lymphocytes % 34.8 % (10-50); Mean Corpuscular HGB Conc 32.9 g/dL (31.8-35.4); Mean Corpuscular Hemoglobin 28.2 pg (27.0-31.2); Mean Corpuscular Volume 85.9 fl (81-99); Mean Platelet Volume 8.9 fl (7.4-10.4); Monocytes # 0.4 K/mm3 (0.1-1.0); Neutrophils % 57.1 % (37.0-80.0); Platelet Count 332 K/mm3 (142-424); Red Blood Count 5.31 M/mm3 (4.20-5.40); Red Cell Distribution Width 14.4 % (11.5-17.5); White Blood Count 8.8 K/mm3 (4.8-10.8)
[2022-05-09 19:55] LABS: Activated Partial Thrombo Time 27.2 seconds (22.8-30.6); INR 0.93 (0.9-1.1); Prothrombin Time 10.1 seconds (10.1-12.5)
[2022-05-09 20:00] VITALS: BP 126/79; PULSE 84; O2SAT 99
[2022-05-09 20:02] LABS: Direct LDL Cholesterol 99.58 mg/dL (100-129)
[2022-05-09 20:05] LABS: Troponin I < 0.01 ng/ml (0.00-0.034)
[2022-05-09 20:38] LABS: Microscopic, Urine URINE MICROSCOPIC (MICROSCOPIC)
[2022-05-09 20:50] LABS: Appearance,Urine SL CLOUDY (Clear); Bilirubin,Urine Negative (Negative); Blood, Urine Negative (Negative); Color,Urine YELLOW (Yellow); Glucose,Urine (UA) Negative (Negative); Ketones,Urine Negative (Negative); Leukocyte Esterase,Urine 1+ (Negative); Nitrate,Urine POSITIVE (Negative); PH,Urine 5.5 (5.0-8.5); Protein,Urine Negative (Negative); Urobilinogen,Urine 0.2 EU/dl (0.2)
[2022-05-09 20:52] LABS: Bacteria,Urine 1+ /lpf
[2022-05-09 21:08] VITALS: BP 124/71; PULSE 80; RESP 18; TEMP 36.7; O2SAT 99
== END 2022-05-09 21:10 | disposition home or self-care (01) ==
PROVIDERS: Emergency Provider Student in an Organized Health Care Education/Training Program; PCP Family Medicine
DX: R20.2 Paresthesia of skin (principal); N39.0 Urinary tract infection, site not specified; Z86.73 Personal history of transient ischemic attack (TIA), and cerebral infarction without residual deficits; F32.A Depression, unspecified; I10 Essential (primary) hypertension; E11.9 Type 2 diabetes mellitus without complications; E78.5 Hyperlipidemia, unspecified; E03.9 Hypothyroidism, unspecified; G43.909 Migraine, unspecified, not intractable, without status migrainosus; Z87.442 Personal history of urinary calculi; Z90.49 Acquired absence of other specified parts of digestive tract; Z82.49 Family history of ischemic heart disease and other diseases of the circulatory system; Z83.42 Family history of familial hypercholesterolemia
CPT/HCPCS: 70450; 70496; 70498; 80053; 80061; 81001; 84484; 85025; 85610; 85730; 87086; 87088; 87186; 93005; 96360; 99285; Q9967

== ENCOUNTER → 2022-05-22 17:05 | Outpatient (CLI) | payer BC, SELFPAY ==
[2022-05-22 19:01] LABS: Alanine Aminotransferase 33 U/L (12-78); Albumin Level 4.7 g/dl (3.5-5.0); Albumin/Globulin Ratio 1.6 (1.1-1.8); Alkaline Phosphatase 75 U/L (38-126); Anion Gap 16.7 mEq/L (5-15); Aspartate Amino Transferase 32 U/L (14-36); Bilirubin,Total 0.5 mg/dl (0.2-1.3); Blood Urea Nitrogen 30 mg/dl (7-17); Carbon Dioxide 22 mmol/L (22.0-30.0); Chloride 105 mmol/L (98-107); Estimated Glomerular Filt Rate 65 ml/min (>60); GFR (African American) 79 ML/MIN (>60); Globulin 2.9 g/dL (1.3-3.2); Glucose 118 mg/dl (74-100); Potassium 4.7 mmoL/L (3.5-5.1); Sodium 139 mmol/L (136-145); Total Protein,Serum 7.6 g/dl (6.3-8.2)
== END ==
PROVIDERS: PCP Family Medicine; Visit Provider Family Medicine
DX: E11.9 Type 2 diabetes mellitus without complications (principal); E03.9 Hypothyroidism, unspecified; Z79.84 Long term (current) use of oral hypoglycemic drugs
CPT/HCPCS: 80053; 82043; 84443

== ENCOUNTER → 2022-06-12 14:57 | Outpatient (CLI) | payer BC, SELFPAY ==
--- NOTE | 2022-06-12 15:04 | CA_ITS ---
FINAL REPORT TECHNIQUE: Color Doppler, duplex Doppler and gonzalez scale sonography of the bilateral neck arterial vasculature was performed. Velocities were measured in the carotid arteries. Stenosis evaluation based on the validated velocity criteria. CLINICAL HISTORY: CVA, TIA, HTN, HLD, DM FINDINGS: The peak systolic velocity of the right common carotid artery is 78 cm/s. The peak systolic velocity of the right internal carotid artery is 77 cm/s and end diastolic velocity 24 cm/s. The ICA/CCA ratio is 1.3. A small amount of plaque is present. The right external carotid artery is patent. The right vertebral artery is patent with antegrade flow. The peak systolic velocity of the left common carotid artery is 92 cm/s. The peak systolic velocity of the left internal carotid artery is 91 cm/s and end diastolic velocity 36 cm/s. The ICA/CCA ratio is 1.2. A small amount of plaque is present. The left external carotid artery is patent.The left vertebral artery is patent with antegrade flow. IMPRESSION: Less than 50% bilateral carotid stenoses. Bilateral patent vertebral arteries with antegrade flow. If indicated, CTA or MRA could further evaluate. Reviewed, Interpreted and Dictated by Manuel Orozco MD Transcribed by Julee Butler Authenticated and [facility]
--- NOTE | 2022-06-12 15:34 | MR_ITS ---
PROCEDURE INFORMATION: Exam: MR Head Without Contrast Exam date and time: 06/12/2022 4:02 PM Age: 52 years old Clinical indication: Numbness / parasthesia; Prior surgery; Surgery type: Brain stent ? ; patient HX: Stroke x 14 years ago. Brain stent placed x 12 years ago. Numbness in right hand x few weeks; Additional info: History of CVA, TIA TECHNIQUE: Imaging protocol: Magnetic resonance imaging of the head without contrast. COMPARISON: CT HEAD/BRAIN WO CON 05/09/2022 7:36 PM FINDINGS: Brain: No acute infarct. No hemorrhage. Stable involutional changes of the brain. No mass effect. Chronic encephalomalacia in the left [employer] SU[employer] territory is unchanged. Chronic lacunar-type infarcts in the bilateral basal ganglia and thalami are unchanged. Chronic lacunar-type infarct right frontal canales radiata is also unchanged. Cerebral ventricles: Ventricular size is stable. There is stable mild ex vacuo prominence of the left lateral ventricle posteriorly adjacent to the encephalomalacia. Bones/joints: Unremarkable. Paranasal sinuses: Scattered paranasal sinus mucosal thickening, without air-fluid level present. Mastoid air cells: Normal as visualized. No mastoid effusion. Orbital cavities: Unremarkable. Soft tissues: Unremarkable. IMPRESSION: 1. No acute intracranial abnormality. 2. Stable chronic left [employer] SU[employer] territory encephalomalacia and bilateral basal ganglia region chronic lacunar-type infarcts.
== END ==
LOC: RT 15:01
PROVIDERS: PCP Family Medicine; Visit Provider Specialist
DX: R20.0 Anesthesia of skin (principal); I69.351 Hemiplegia and hemiparesis following cerebral infarction affecting right dominant side
CPT/HCPCS: 70551; 93880

== ENCOUNTER 2023-05-11 17:45 | Outpatient (CLI) | payer BC, SELFPAY ==
[2023-05-11 17:50] LABS: Coronavirus 19, PCR Not Detected (NotDetected); Influenza A, PCR Not Detected (NotDetected); Influenza B, PCR Not Detected (NotDetected)
[2023-05-11 18:34] LABS: Alanine Aminotransferase 31 U/L (12-78); Albumin Level 4.6 g/dl (3.5-5.0); Albumin/Globulin Ratio 1.4 (1.1-1.8); Alkaline Phosphatase 81 U/L (38-126); Anion Gap 16.3 mEq/L (5-15); Aspartate Amino Transferase 28 U/L (14-36); Basophils # 0.1 K/mm3 (0-0.2); Basophils % 0.6 % (0.1-2.0); Bilirubin,Total 0.4 mg/dl (0.2-1.3); Blood Urea Nitrogen 23 mg/dl (7-17); Calcium 9.8 mg/dl (8.4-10.2); Carbon Dioxide 17 mmol/L (22.0-30.0); Chloride 110 mmol/L (98-107); Eosinophils # 0.1 K/mm3 (0.0-0.4); Eosinophils % 1.1 % (0.1-12.0); Estimated Glomerular Filt Rate 87 ml/min (>60); GFR (African American) 105 ML/MIN (>60); Globulin 3.2 g/dL (1.3-3.2); Glucose 135 mg/dl (74-100); Hematocrit 46.2 % (37.0-47.0); Hemoglobin 15.4 g/dL (12.2-16.2); Lymphocytes # 2.1 K/mm3 (0.7-4.5); Lymphocytes % 23.2 % (10-50); Mean Corpuscular HGB Conc 33.4 g/dL (31.8-35.4); Mean Corpuscular Hemoglobin 29.1 pg (27.0-31.2); Mean Corpuscular Volume 87.2 fl (81-99); Mean Platelet Volume 9.5 fl (7.4-10.4); Monocytes # 0.3 K/mm3 (0.1-1.0); Monocytes % 3.7 % (1.7-9.3); Neutrophils # 6.5 K/mm3 (1.8-7.8); Neutrophils % 71.4 % (37.0-80.0); Platelet Count 312 K/mm3 (142-424); Potassium 4.3 mmoL/L (3.5-5.1); Red Cell Distribution Width 14.9 % (11.5-17.5); Sodium 139 mmol/L (136-145); Total Protein,Serum 7.8 g/dl (6.3-8.2); White Blood Count 9.2 K/mm3 (4.8-10.8)
== END 2023-05-11 23:59 ==
LOC: LAB.DROPOF 17:46
PROVIDERS: PCP Nurse Practitioner; Visit Provider Nurse Practitioner
DX: J06.9 Acute upper respiratory infection, unspecified (principal)
CPT/HCPCS: 80053; 85025; 87636

== ENCOUNTER → 2023-06-08 12:30 | Outpatient (CLI) | payer BC, SELFPAY | LOC: SL 12:31 | PROVIDERS: PCP Nurse Practitioner; Visit Provider Nurse Practitioner | DX: G47.33 Obstructive sleep apnea (adult) (pediatric) (principal); G47.36 Sleep related hypoventilation in conditions classified elsewhere | CPT/HCPCS: G0399 ==

== ENCOUNTER 2023-09-04 20:34 | Emergency (ER) | payer BC, SELFPAY ==
[2023-09-04 20:35] VITALS: BP 141/102; PULSE 90; RESP 20; TEMP 36.7; O2SAT 95; BMI 33.6
--- NOTE | 2023-09-04 20:39 | ECG_ITS ---
APPROVED REPORT Exam: Resting ECG HR:89 bpm ECG Measurements Heart Rate 89 AXES MO 199 P 55 QRSd 89 QRS 73 QT 378 T 64 QTc 424 Conclusion SINUS RHYTHM NORMAL ECG Electronically signed by : KALI HAMILTON, 09/05/2023 07:20:59
--- NOTE | 2023-09-04 20:39 | CT_ITS ---
PROCEDURE INFORMATION: Exam: CT Head Without Contrast Exam date and time: 09/04/2023 8:44 PM Age: 53 years old Clinical indication: Stroke-like symptoms; Altered mental status/memory loss; RT upper extremity and RT lower extremity weakness; Additional info: Possible stroke TECHNIQUE: Imaging protocol: Computed tomography of the head without contrast. Radiation optimization: All CT scans at this facility use at least one of these dose optimization techniques: automated exposure control; mA and/or kV adjustment per patient size (includes targeted exams where dose is matched to clinical indication); or iterative reconstruction. Other technique: STROKE PROTOCOL was implemented. COMPARISON: MR HEAD/BRAIN WO CON 06/12/2022 4:02 PM FINDINGS: Brain: Encephalomalacia/gliosis is identified involving the left temporal and occipital lobes, consistent with an old infarct. Chronic lacunar infarcts are visualized involving the bilateral basal ganglia and thalami, as well as the right canales radiata. A few small hypodense infarcts are identified involving the medial left cerebellar lobe on series 3, image 20, indeterminate in acuity. No acute intracranial hemorrhage is visualized. The gonzalez-white differentiation is otherwise preserved. There is [id number] cerebral white matter hypodensity, likely representing small vessel ischemic disease in a patient this age. The acuity of the white matter disease is indeterminate. There is no significant midline shift. Cerebral ventricles: There is mild prominence of the ventricles and sulci, compatible with atrophy. Paranasal sinuses: There is mild mucosal thickening of the right maxillary sinus. Mastoid air cells: No mastoid effusion. Bones: Periapical hypodensity is identified within the right side of the maxilla, consistent with periodontal disease. The calvarium demonstrates no evidence for a depressed fracture. Soft tissues: Unremarkable. Vasculature: Intracranial atherosclerosis visualized. IMPRESSION: 1. A few small hypodense infarcts are identified involving the medial left cerebellar lobe , indeterminate in acuity. If further evaluation is clinically indicated, an MRI of the brain is recommended. 2. Encephalomalacia/gliosis is identified involving the left temporal and occipital lobes, consistent with an old infarct. Chronic lacunar infarcts are visualized involving the bilateral basal ganglia and thalami, as well as the right canales radiata. 3. There is [id number] cerebral white matter hypodensity, likely representing small vessel ischemic disease in a patient this age. 4. Mild atrophy. 5. Additional findings described above. ASSESSMENT: [facility] Stroke Program Early CT Score (ASPECTS) = 10
--- NOTE | 2023-09-04 20:39 | CT_ITS ---
PROCEDURE INFORMATION: Exam: CTA Head With Contrast, Arteriography Exam date and time: 09/04/2023 8:46 PM Age: 53 years old Clinical indication: Stroke-like symptoms; Altered mental status/memory loss; Additional info: Possible stroke TECHNIQUE: Imaging protocol: Computed tomographic angiography of the head with contrast. Exam focused on the arteries. 3D rendering (Not supervised by radiologist): MIP and/or 3D reconstructed images were created by the technologist. Radiation optimization: All CT scans at this facility use at least one of these dose optimization techniques: automated exposure control; mA and/or kV adjustment per patient size (includes targeted exams where dose is matched to clinical indication); or iterative reconstruction. Contrast material: ISOUVE 370; Contrast volume: 100 ml; Contrast route: INTRAVENOUS (IV); COMPARISON: CT ANGIO HEAD 05/09/2022 7:39 PM FINDINGS: ANTERIOR CIRCULATION: Right internal carotid artery: Atherosclerosis of the right internal carotid artery, with mild stenoses. No aneurysm. Right middle cerebral artery: No occlusion or significant stenosis. No aneurysm. Right anterior cerebral artery: Bilateral COLLEEN stenoses are identified of distal segments. No large vessel occlusion. Left internal carotid artery: Atherosclerosis of the left internal carotid artery, with mild stenoses. No aneurysm. Left middle cerebral artery: Severe stenosis is identified involving an M2 segment of the left MCA. Stenosis is also visualized of an M3 segment. No large vessel occlusion. No visualized aneurysm. Left anterior cerebral artery: See above. 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 Left vertebral artery: A dominant left vertebral artery is identified. Atherosclerosis and mild stenosis of the V4 segment the left vertebral artery. Basilar artery: No occlusion or significant stenosis. No aneurysm. Right posterior cerebral artery: Right HEMODIALYSIS CHARGE NURSE stenoses are visualized. No large vessel occlusion. No visualized aneurysm. Left posterior cerebral artery: The left HEMODIALYSIS CHARGE NURSE is small in caliber, with significant decreased flow and concern for focal areas of occlusion. This is chronic compared to the prior CTA. Brain: Encephalomalacia/gliosis is identified involving the left temporal occipital lobes, consistent with old infarct. Refer to the head CT report from the same day. Cerebral ventricles: Mild ventriculomegaly. Bones/joints: No acute fracture. Soft tissues: Unremarkable. IMPRESSION: 1. 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 2. The left HEMODIALYSIS CHARGE NURSE is small in caliber, with significant decreased flow and concern for focal areas of occlusion. This is chronic compared to the prior CTA. 3. Severe stenosis is identified involving an M2 segment of the left MCA, which is a progression. Stenosis is also visualized of an M3 segment. 4. A dominant left vertebral artery is identified. Atherosclerosis and mild stenosis of the V4 segment the left vertebral artery. 5. Right HEMODIALYSIS CHARGE NURSE stenoses are visualized. 6. Bilateral COLLEEN stenoses are identified of distal segments. 7. Atherosclerosis of the internal carotid arteries, with mild stenoses bilaterally. 8. Additional findings described above.
--- NOTE | 2023-09-04 20:39 | CT_ITS ---
PROCEDURE INFORMATION: Exam: CTA Neck With Contrast Exam date and time: 09/04/2023 8:46 PM Age: 53 years old Clinical indication: Stroke-like symptoms; RT upper extremity and RT lower extremity weakness; Additional info: Possible stroke TECHNIQUE: Imaging protocol: Computed tomographic angiography of the neck with contrast. Exam focused on the cervical segments of the vasculature. 3D rendering (Not supervised by radiologist): MIP and/or 3D reconstructed images were created by the technologist. Radiation optimization: All CT scans at this facility use at least one of these dose optimization techniques: automated exposure control; mA and/or kV adjustment per patient size (includes targeted exams where dose is matched to clinical indication); or iterative reconstruction. Contrast material: ISOUVE 370; Contrast volume: 100 ml; Contrast route: INTRAVENOUS (IV); COMPARISON: CT ANGIO NECK 05/09/2022 7:39 PM FINDINGS: Right common carotid artery: Mild stenosis of the proximal right common carotid artery. Atherosclerosis. Right internal carotid artery: No stenosis of the right internal carotid artery using NASCET criteria. Right external carotid artery: No occlusion or significant stenosis. Left common carotid artery: No significant stenosis or occlusion of the left common carotid artery. Left internal carotid artery: Atherosclerosis and less than 50% stenosis of the proximal left internal carotid artery. Left external carotid artery: No occlusion or significant stenosis. Right vertebral artery: The right vertebral artery is small in caliber, with severely decreased flow of the distal V3 segment. Left vertebral artery: A dominant left vertebral artery is identified. Severe stenosis is again identified at the origin of this vessel. Brachiocephalic artery: A bovine aortic arch is visualized, with common origin of the brachiocephalic artery and left common carotid artery. Right subclavian artery: Venous enhancement and artifact limit evaluation of the right subclavian artery. Left subclavian artery: The left subclavian artery is patent, as visualized. Soft tissues: No significant soft tissue swelling. Bones/joints: Degenerative changes are visualized involving the cervical and upper thoracic spine. Varying degrees of spinal canal stenoses and neural foraminal narrowing are visualized at cervical levels. Artifact limits evaluation of the spinal canal. Lungs: Nonspecific increased interstitial markings are seen within the lungs bilaterally. Interstitial edema and atypical infection are within the differential. IMPRESSION: 1. The right vertebral artery is small in caliber, with severely decreased flow of the distal V3 segment. 2. A dominant left vertebral artery is identified. Severe stenosis is again identified at the origin of this vessel. 3. Mild stenosis of the proximal right common carotid artery. 4. Atherosclerosis and less than 50% stenosis of the proximal left internal carotid artery. 5. Nonspecific increased interstitial markings are seen within the lungs bilaterally. Interstitial edema and atypical infection are within the differential. Clinical correlation is recommended. 6. Additional findings described above. COMMENTS: THIS REPORT CONTAINS FINDINGS THAT MAY BE CRITICAL TO PATIENT CARE. The exam findings were verbally communicated by me to Luis Kirby via telephone conference at 9:22 PM EDT on 09/04/2023. The findings were acknowledged and understood. REFERENCES: NASCET CRITERIA. The degree of stenosis in the cervical segment of the internal carotid artery is based on NASCET criteria. Normal is no stenosis. Mild is less than 50% stenosis. Moderate is 50-69% stenosis. Severe is 70% to 99% stenosis. Total occlusion is no detectable patent lumen.
--- NOTE | 2023-09-04 20:43 | PC.NURSE ---
called stroke alert at [address] deana COFFEY MD
--- NOTE | 2023-09-04 20:43 | PC.NURSE ---
pt transported to ct scan
[2023-09-04 20:49] LABS: Basophils # 0.1 K/mm3 (0-0.2); Basophils % 1.2 % (0.1-2.0); Eosinophils # 0.3 K/mm3 (0.0-0.4); Eosinophils % 3.5 % (0.1-12.0); Hematocrit 46.3 % (37.0-47.0); Hemoglobin 15.2 g/dL (12.2-16.2); Lymphocytes # 2.7 K/mm3 (0.7-4.5); Lymphocytes % 36.9 % (10-50); Mean Corpuscular HGB Conc 32.8 g/dL (31.8-35.4); Mean Corpuscular Hemoglobin 29.3 pg (27.0-31.2); Mean Corpuscular Volume 89.6 fl (81-99); Mean Platelet Volume 9.1 fl (7.4-10.4); Monocytes # 0.3 K/mm3 (0.1-1.0); Neutrophils % 54.4 % (37.0-80.0); Platelet Count 280 K/mm3 (142-424); Red Blood Count 5.16 M/mm3 (4.20-5.40); Red Cell Distribution Width 14.1 % (11.5-17.5); White Blood Count 7.4 K/mm3 (4.8-10.8)
[2023-09-04 20:52] LABS: Chloride 113 mmol/L (98-107); Sodium 144 mmol/L (136-145)
[2023-09-04 20:54] LABS: Blood Urea Nitrogen 26 mg/dl (7-17); Creatinine Clearance Estimated 108 mL/min (50-200); Estimated Glomerular Filt Rate 74 ml/min (>60); GFR (African American) 90 ML/MIN (>60)
[2023-09-04 20:55] LABS: Alanine Aminotransferase 35 U/L (12-78); Albumin Level 4.4 g/dl (3.5-5.0); Albumin/Globulin Ratio 1.3 (1.1-1.8); Alkaline Phosphatase 92 U/L (38-126); Aspartate Amino Transferase 39 U/L (14-36); Bilirubin,Total 0.5 mg/dl (0.2-1.3); Carbon Dioxide 20 mmol/L (22.0-30.0); Cholesterol 139 mg/dl (140-200); Globulin 3.4 g/dL (1.3-3.2); Total Protein,Serum 7.8 g/dl (6.3-8.2); Triglycerides 266 mg/dl (30-150); VLDL Cholesterol 53 mg/dL (0-40)
[2023-09-04 20:56] LABS: Calcium 10.1 mg/dl (8.4-10.2); Chol/HDL Ratio 3.8 (1-3.5); Glucose 145 mg/dl (74-100); HDL Cholesterol 37 mg/dl (40-60)
[2023-09-04 20:58] LABS: Activated Partial Thrombo Time 27.9 seconds (22.8-30.6); INR 0.96 (0.9-1.1); Prothrombin Time 10.4 seconds (10.1-12.5)
[2023-09-04 21:00] VITALS: BP 132/79; PULSE 90; RESP 18; O2SAT 95
[2023-09-04 21:03] LABS: Ethyl Alcohol < 10 mg/dl (0-10)
[2023-09-04 21:07] LABS: Direct LDL Cholesterol 74.07 mg/dL (100-129)
[2023-09-04 21:10] LABS: Troponin I < 0.01 ng/ml (0.00-0.034)
--- NOTE | 2023-09-04 21:23 | [facility]H.EDGENADL ---
Discharge Plan Disposition Patient Disposition: Xfer Short-Term Hosp Chief Complaint: Neuro Symptoms/Deficit Prescriptions Prescriptions: No Action ergocalciferol (vitamin D2) 1,250 mcg (50,000 unit) capsule 1,250 mcg PO WEEKLY loratadine [Allergy Relief (loratadine)] 10 mg tablet 10 mg PO DAILY Patient Comments: TAKE 1 TABLET BY MOUTH ONCE DAILY Ozempic 0.25 mg or 0.5 mg(2 mg/1.5 mL) pen injector 0.5 mg SQ WEEKLY Qty: 1.5 2RF Rx Instructions: for 4 doses meclizine 25 mg tablet 25 mg PO DAILY PRN (Reason: Nausea) Qty: 270 cyclobenzaprine 10 mg tablet 10 mg PO DAILY PRN (Reason: muscle relaxer) Qty: 180 0RF benzonatate 200 mg capsule 200 mg PO TID PRN (Reason: cough) Qty: 30 0RF albuterol sulfate 90 mcg/actuation HFA aerosol inhaler 2 puff inhalation Q4-6H PRN (Reason: shortness of breath or wheezing) Qty: 8.5 0RF atorvastatin [Lipitor] 40 mg tablet 40 mg PO DAILY Qty: 90 3RF levothyroxine 50 mcg tablet 50 mcg PO DAILY Patient Comments: TAKE 1 TABLET BY MOUTH ONCE DAILY Ozempic 0.25 mg or 0.5 mg (2 mg/3 mL) pen injector 0.25 mg SQ WEEKLY Patient Comments: INJECT 0.5 MG SUBCUTANEOUSLY ONCE A WEEK gemfibrozil 600 mg tablet 600 mg PO BID Qty: 180 0RF metformin 500 mg tablet extended release 24 hr 500 mg PO DAILY Qty: 90 5RF levothyroxine 75 mcg capsule 75 mcg PO DAILY Qty: 90 1RF fluticasone propionate [Flonase Allergy Relief] 50 mcg/actuation spray,suspension 2 spray intranasal DAILY Qty: 16 2RF Rx Instructions: administer into each nostril Nurtec ODT 75 mg tablet,disintegrating See Rx Instructions .ROUTE .COMPLEX Qty: 8 0RF Dose Instruction: TAKE 1 TABLET BY MOUTH EVERY OTHER DAY NEEDED FOR MIGRAINE Rx Instructions: TAKE 1 TABLET BY MOUTH EVERY OTHER DAY NEEDED FOR MIGRAINE aspirin [Ecotrin Low Strength] 81 mg tablet,delayed release (DR/EC) See Rx Instructions .ROUTE .COMPLEX Qty: 90 0RF Dose Instruction: TAKE 1 TABLET BY MOUTH ONCE DAILY FOR HEART HEALTH Rx Instructions: TAKE 1 TABLET BY MOUTH ONCE DAILY FOR HEART HEALTH topiramate 25 mg tablet 25 mg PO BID Qty: 60 5RF lisinopril 20 mg tablet 20 mg PO DAILY Qty: 90 0RF pregabalin 100 mg capsule 100 mg PO BID Qty: 60 3RF atenolol 50 mg tablet See Rx Instructions .ROUTE .COMPLEX Qty: 90 0RF Dose Instruction: Take 1 tablet by mouth once daily Rx Instructions: Take 1 tablet by mouth once daily duloxetine 60 mg capsule,delayed release(DR/EC) See Rx Instructions .ROUTE .COMPLEX Qty: 180 0RF Dose Instruction: TAKE 1 CAPSULE BY MOUTH TWICE DAILY FOR PAIN Rx Instructions: TAKE 1 CAPSULE BY MOUTH TWICE DAILY FOR PAIN Referrals Follow up/Referrals: Melissa Friend APRN [Primary Care Provider] - See instructions Clinical Impressions Clinical Impression: Acute CVA (cerebrovascular accident) Discharge ED Provider: Luis Kirby General Adult HPI General Chief complaint: Neuro Symptoms/Deficit Stated complaint: neuro s/s Time Seen by Provider: 09/04/23 20:45 Mode of Arrival: Wheelchair Source of Information: Patient and Relative Limitations: right side weakness from previous stroke Description of Symptoms (Recalled from ER Triage Doc. by RN): stroke s/s that began after 1630 today hx of prior cva with residual right side weakness History of Present Illness HPI narrative: Please note that above description of symptoms, in this electronic medical record under categorization of recalled from ER triage doctor by RN are reflective of an initial nursing assessment, however, is not reflective of my full history and physical exam that was personally taken and clarified. Consequentially, this preceding description of symptoms, which may include the patient's categorized chief complaint in the EMR, do not reflect my personal clinical impression, and the ultimate description of history of present illness and patient stated complaints should be deferred to this section of the note. Unless stated otherwise or congruent with this section of the note, additional signs, symptoms, or incongruence should be interpreted as inaccurate with my clinical impression. Related Data Home Medications Medication Instructions Recorded Confirmed meclizine 25 mg tablet 25 mg PO DAILY PRN Nausea #270 tabs 02/25/22 08/06/23 ergocalciferol (vitamin D2) 1,250 1,250 mcg PO WEEKLY 05/14/22 08/06/23 mcg (50,000 unit) capsule loratadine 10 mg tablet (Allergy 10 mg PO DAILY 06/01/22 08/06/23 Relief (loratadine)) levothyroxine 50 mcg tablet 50 mcg PO DAILY 08/06/23 08/06/23 semaglutide 0.25 mg or 0.5 mg (2 0.25 mg SQ WEEKLY 08/06/23 08/06/23 mg/3 mL) subcutaneous pen injector (Ozempic) Previous Rx's Medication Instructions Recorded gemfibrozil 600 mg tablet 600 mg PO BID Diabetes #180 tabs 04/06/22 levothyroxine 75 mcg capsule 75 mcg PO DAILY hypothyroid #90 09/23/22 caps metformin 500 mg tablet,extended 500 mg PO DAILY #90 tabs 09/23/22 release 24 hr fluticasone propionate 50 2 spray intranasal DAILY #16 grams 10/09/22 mcg/actuation nasal spray,suspension (Flonase Allergy Relief) cyclobenzaprine 10 mg tablet 10 mg PO DAILY PRN muscle relaxer 01/21/23 #180 tabs semaglutide 0.25 mg or 0.5 mg (2 0.5 mg (0.374 mL) SQ WEEKLY 02/25/23 mg/1.5 mL) subcutaneous pen diabetes #1.5 mL injector rimegepant 75 mg disintegrating See Rx Instructions .Route 04/23/23 tablet (Nurtec ODT) .COMPLEX #8 tabs albuterol sulfate 90 mcg/actuation 2 puff inhalation Q4-6H PRN 05/11/23 aerosol inhaler shortness of breath or wheezing #8.5 grams benzonatate 200 mg capsule 200 mg PO TID PRN cough #30 caps 05/11/23 aspirin 81 mg tablet,delayed See Rx Instructions .Route 05/17/23 release (Ecotrin Low Strength) .COMPLEX #90 tabs atorvastatin 40 mg tablet (Lipitor) 40 mg PO DAILY #90 tabs 05/28/23 topiramate 25 mg tablet 25 mg PO BID #60 tabs 06/24/23 lisinopril 20 mg tablet 20 mg PO DAILY bp #90 tabs 07/13/23 pregabalin 100 mg capsule 100 mg PO BID Pain #60 caps 07/14/23 atenolol 50 mg tablet See Rx Instructions .Route 07/27/23 .COMPLEX #90 tabs duloxetine 60 mg capsule,delayed See Rx Instructions .Route 08/19/23 release .COMPLEX #180 ea Allergies Allergy/AdvReac Type Severity Reaction Status Date / Time levofloxacin [LEVOFLOXACIN] Allergy Unknown Verified 08/06/23 14:51 [facility] Disclaimer: The information contained in this section may have been updated after the patient was seen, as this information can be updated by other users. Medical History Hypothyroidism Right homonymous hemianopsia History of nephrolithiasis Migraine Depression Hyperlipidemia Hypertension DM type 2 (diabetes mellitus, type 2) History of CVA (cerebrovascular accident) Obesity (BMI 30.0-34.9) Hypothyroidism Surgical History History of cholecystectomy Family History Other Cancer Coronary artery disease Diabetes Heart attack Hyperlipidemia Hypertension Hypothyroidism Social History Smoking Status: Never smoker alcohol intake: never substance use type: denies use current occupational status: disabled Travel in the last 8 weeks: None household members: family housing: house ROS Obtained: Yes All systems reviewed & no additional complaints except as documented Physical Exam General General appearance: alert and in no apparent distress Head Head exam: atraumatic and normocephalic Eye Eye exam: Present normal appearance, PERRL and EOMI ENT ENT exam: Present mucous membranes moist Neck Neck exam: Present normal inspection, full ROM and trachea midline Respiratory Respiratory exam: Absent respiratory distress, wheezes, stridor, accessory muscle use or prolonged expiratory phase Cardiovascular Cardiovascular exam: Present normal rhythm Abdominal Exam Abdominal exam: Present soft; Absent distention, tenderness, guarding, rebound or rigidity Extremities Exam Extremities exam: Absent edema Neurological Exam Neurological exam: Present alert, oriented X3, CN II-XII intact and normal gait; Absent motor sensory deficit Skin Skin exam: Present warm and dry; Absent diaphoresis or erythema Medical Decision Making Medical Records Medical records reviewed: Yes I reviewed the patient's medical records. Jason Inquiry Pt receiving controlled substance: No Jason was queried for this patient: No Vital Signs: 09/04/23 20:35 09/04/23 21:00 09/04/23 21:30 Temperature 98.1 F Temperature Source Oral Pulse Rate 90 91 H Pulse Rate [Right Radial] 90 Respiratory Rate 20 18 18 Blood Pressure 132/79 125/90 Blood Pressure [Right Arm] 141/102 H Blood Pressure Mean [Right Arm] 115 02 Sat by Pulse Oximetry 95 95 93 L Oxygen Delivery Method Room Air Room Air Room Air Lab Data Lab Results 09/04/23 20:30: WBC 7.4, RBC 5.16, Hgb 15.2, Hct 46.3, MCV 89.6, MCH 29.3, MCHC 32.8, RDW 14.1, Plt Count 280, MPV 9.1, Neut % (Auto) 54.4, Lymph % (Auto) 36.9, [place] % (Auto) 4.0, Eos % (Auto) 3.5, Baso % (Auto) 1.2, Neut # (Auto) 4.0, Lymph # (Auto) 2.7, [place] # (Auto) 0.3, Eos # (Auto) 0.3, Baso # (Auto) 0.1, PT 10.4, INR 0.96, APTT 27.9, Sodium 144, Potassium 4.0, Chloride 113 H, Carbon Dioxide 20 L, Anion Gap 15.0, BUN 26 H, Creatinine 0.80, Estimated Creat Clear 108, Estimated GFR 74, Est GFR ( Amer) 90, Glucose 145 H, Calcium 10.1, Total Bilirubin 0.5, AST 39 H, ALT 35, Alkaline Phosphatase 92, Troponin I < 0.01, Total Protein 7.8, Albumin 4.4, Globulin 3.4 H, Albumin/Globulin Ratio 1.3, Triglycerides 266 H, Cholesterol 139 L, LDL Cholesterol Direct 74.07 L, VLDL Cholesterol 53 H, HDL Cholesterol 37 L, Cholesterol/HDL Ratio 3.8 H, Plasma/Serum Alcohol < 10 09/04/23 20:30 09/04/23 20:30 Orders (Tests/Meds): ED MEDICATIONS Generic Name Dose Route Start Last Admin Trade Name Freq PRN Reason Stop Dose Admin Sodium Chloride 10 ml 09/04/23 20:39 09/04/23 21:38 Sodium Chloride 0.9% 10ml Flush Syringe IV 10/04/23 20:38 10 ml NEEDED PRN Administration Maintain IV Site Sodium Chloride 10 ml 09/04/23 21:36 09/04/23 21:37 Sodium Chloride 0.9% 10ml Syr (Rad Only) IV 10/04/23 21:35 10 ml NEEDED PRN Administration Maintain IV Site Discontinued Medications Generic Name Dose Route Start Last Admin Trade Name Alyssa PRN Reason Stop Dose Admin Aspirin 324 mg 09/04/23 21:33 09/04/23 21:54 Aspirin 81mg Chewable Tablet PO 09/04/23 21:34 324 mg ONCE ONE Administration Iopamidol 100 ml 09/04/23 21:36 09/04/23 21:37 Iopamidol-370 (76%);100ml Bottle IV 09/04/23 21:37 100 ml ONCE ONE Administration Sodium Chloride 50 ml 09/04/23 21:36 09/04/23 21:38 0.9 % Sodium Chloride 50 Ml Vial IV 09/04/23 21:37 50 ml ONCE ONE Administration ORDERS Category Date Time Status CT angio head Stat Cat Scan 09/04/23 20:[address] angio neck Stat Cat Scan 09/04/23 20:[address] head/brain wo con Stat Cat Scan 09/04/23 20:39 Taken Activated Partial Thrombo Time Stat Lab 09/04/23 20:30 Completed Complete Blood Count Auto Diff Stat Lab 09/04/23 20:30 Completed Comprehensive Metabolic Panel Stat Lab 09/04/23 20:30 Completed Drug Screen,Urine Stat Lab 09/04/23 20:39 Ordered Ethyl Alcohol Stat Lab 09/04/23 20:30 Completed Lipid Panel Stat Lab 09/04/23 20:30 Completed Prothrombin Time INR Stat Lab 09/04/23 20:30 Completed Troponin I Q3H Lab 09/04/23 23:45 Ordered Troponin I Q3H Lab 09/05/23 02:45 Ordered Troponin I Stat Lab 09/04/23 20:30 Completed Urinalysis and Microscopic Stat Lab 09/04/23 20:39 Ordered ECG Request Stat Y 09/04/23 20:39 Ordered Medical Decision Narrative: 53-year-old female history of hypertension, hyperlipidemia, CVA on the aspirin, hypothyroidism, diabetes presenting with dysarthria and right-sided weakness. Patient has right-sided weakness and left-sided facial droop at baseline, but states that today around 430, she became more weak on the right side and was having difficulty speaking again. This is not her baseline. No vision changes, or any other concerns. History was obtained via conversation with patient and family. On arrival, patient hemodynamically stable, alert, oriented x4, appropriate, GCS 15, moving all extremities spontaneously, pupils equal and reactive to light. Full physical exam performed and significant for NIHSS 7. Patient has right-sided weakness, left-sided facial droop, dysarthria, aphasia. Cardiopulmonary exam within normal limits, pulses equal and symmetric. differential includes CVA, dissection, metabolic abnormality, endocrinologic abnormality, anemia, ACS, VA, among others. Patient was given full dose aspirin for symptomatic management and correction of underlying abnormalities. Workup independently interpreted and significant for nonactionable hematologic workup. CTA head and neck with chronic occlusions as listed in reads, no acute arterial occlusion in the head or neck, but new severe stenosis left M2 and M3 branches. See radiology read for full review of final results. Independent interpretation of EKG shows sinus rhythm 89 beats a minute no ST or T wave changes concerning for acute ischemia. UT, QRS, QT intervals within normal limits and axis normal. Given patient presentation, workup, history, this most likely represents recrudescence versus severe stenosis causing CVA symptoms. Because patient high risk for clinical decompensation if discharged, deemed appropriate for transfer and inpatient admission. Results were relayed to patient who voiced understanding and patient was agreeable to transfer, inpatient admission, and management. Patient was graciously accepted and transferred to for further definitive management, under Dr. Casper Critical Care Critical Care Time Critical Care Time: Yes (neuro) Attestation: On 09/04/23, the high probability of a clinically significant, sudden or life threatening deterioration of the following system(s) required my full and direct attention, intervention and personal management. The time I documented below is in addition to time spent performing reported procedures but includes the following listed in this critical care notation. Total Time Total Critical Care Time: 45
[2023-09-04 21:30] VITALS: BP 125/90; PULSE 91; RESP 18; O2SAT 93
--- NOTE | 2023-09-04 21:34 | PC.NURSE ---
per er md patient is outside of [facility] window
--- NOTE | 2023-09-04 21:35 | PC.NURSE ---
rn performed bedside swallow screen which patient passed prior to ASA administration
[2023-09-04] MEDS: IOPAMIDOL-370 (76%);100ML BOTTLE 100 ML IV (21:37)
[2023-09-04] MEDS: SODIUM CHLORIDE 0.9% 10ML SYR (RAD ONLY) 10 ML IV (21:37)
[2023-09-04] MEDS: SODIUM CHLORIDE 0.9% 10ML FLUSH SYRINGE 10 ML IV (21:38)
[2023-09-04] MEDS: 0.9 % SODIUM CHLORIDE 50 ML VIAL IV (21:38)
[2023-09-04] MEDS: ASPIRIN 81MG CHEWABLE TABLET 324 MG PO (21:54)
[2023-09-04 22:00] VITALS: BP 141/90; PULSE 85; RESP 16; O2SAT 95
--- NOTE | 2023-09-04 22:11 | PC.NURSE ---
Called [facility] stroke about possible tranfer of the pt. CR
--- NOTE | 2023-09-04 22:18 | PC.NURSE ---
requested method of transport from ed physician and was told this patient can transport by ambulance rather than air.
[2023-09-04 22:30] VITALS: BP 138/92; PULSE 86; RESP 16; O2SAT 93
--- NOTE | 2023-09-04 22:37 | PC.NURSE ---
called report to [facility]
[2023-09-04 23:00] VITALS: BP 119/87; PULSE 83; RESP 14; O2SAT 96
[2023-09-05 00:54] VITALS: BP 140/78; PULSE 70; RESP 20; TEMP 36.7; O2SAT 98
== END 2023-09-05 01:03 | disposition short-term general hospital (02) ==
PROVIDERS: Emergency Provider Emergency Medicine; PCP Nurse Practitioner
DX: I63.9 Cerebral infarction, unspecified (principal); E11.9 Type 2 diabetes mellitus without complications; E03.9 Hypothyroidism, unspecified; I10 Essential (primary) hypertension; E78.5 Hyperlipidemia, unspecified; Z79.84 Long term (current) use of oral hypoglycemic drugs; Z79.85 Long-term (current) use of injectable non-insulin antidiabetic drugs
CPT/HCPCS: 70450; 70496; 70498; 80053; 80061; 84484; 85025; 85610; 85730; 93005; 99285; 99291; Q9967

== ENCOUNTER 2023-09-23 14:56 | Outpatient (CLI) | payer BC, SELFPAY ==
[2023-09-23 15:47] VITALS: BMI 31.2
== END 2023-09-23 23:59 | disposition home or self-care (01) ==
LOC: DIETICIAN 14:56
PROVIDERS: PCP Nurse Practitioner; Visit Provider Nurse Practitioner
DX: E11.9 Type 2 diabetes mellitus without complications (principal); E66.9 Obesity, unspecified; Z68.31 Body mass index [BMI] 31.0-31.9, adult; Z79.84 Long term (current) use of oral hypoglycemic drugs; Z79.85 Long-term (current) use of injectable non-insulin antidiabetic drugs
CPT/HCPCS: 97802

== ENCOUNTER 2023-10-28 09:11 | Outpatient (CLI) | payer BC, SELFPAY | END 2023-10-28 23:59 | disposition home or self-care (01) | LOC: LAB.DROPOF 10-29 09:12 | PROVIDERS: PCP Family Medicine; Visit Provider Family Medicine | DX: N39.0 Urinary tract infection, site not specified (principal) | CPT/HCPCS: 87086; 87088; 87186 ==

== ENCOUNTER 2023-11-25 08:09 | Outpatient (CLI) | payer BC, SELFPAY ==
[2023-11-26 14:23] LABS: Adrenocorticotropic Hormone 13.3 pg/mL (7.2-63.3)
== END 2023-11-25 23:59 | disposition home or self-care (01) ==
LOC: LAB 08:10
PROVIDERS: PCP Family Medicine; Visit Provider Family Medicine
DX: R29.818 Other symptoms and signs involving the nervous system (principal)
CPT/HCPCS: 36415; 82024; 82533

== ENCOUNTER 2023-11-26 08:41 | Outpatient (CLI) | payer BC, SELFPAY | END 2023-11-26 23:59 | disposition home or self-care (01) | LOC: LAB.DROPOF 11-29 08:42 | PROVIDERS: PCP Family Medicine; Visit Provider Family Medicine | DX: N39.0 Urinary tract infection, site not specified (principal) | CPT/HCPCS: 87086; 87088; 87186 ==

== ENCOUNTER 2023-11-30 16:18 | Outpatient (CLI) | payer BC, SELFPAY ==
[2023-11-30 16:20] VITALS: BMI 30.2
[2023-11-30] MEDS: ERTAPENEM SODIUM 1 GM VIAL IM (16:24)
[2023-11-30 16:29] VITALS: BP 138/86; PULSE 92; RESP 16; TEMP 36.6; O2SAT 98
== END 2023-11-30 16:36 | disposition home or self-care (01) ==
LOC: INF 16:19
PROVIDERS: PCP Family Medicine; Visit Provider Family Medicine
DX: N39.0 Urinary tract infection, site not specified (principal)
CPT/HCPCS: 96372; J1335

== ENCOUNTER 2023-12-01 16:03 | Outpatient (CLI) | payer BC, SELFPAY ==
[2023-12-01 16:05] VITALS: BP 127/81; PULSE 101; RESP 18; TEMP 36.8; O2SAT 97
[2023-12-01] MEDS: ERTAPENEM SODIUM 1 GM VIAL IM (16:23)
== END 2023-12-01 16:29 | disposition home or self-care (01) ==
LOC: INF 16:03
PROVIDERS: PCP Nurse Practitioner; Visit Provider Internal Medicine Medical Oncology
DX: N39.0 Urinary tract infection, site not specified (principal)
CPT/HCPCS: 96372; J1335

== ENCOUNTER 2023-12-02 14:47 | Outpatient (CLI) | payer BC, SELFPAY ==
[2023-12-02 15:07] VITALS: BP 134/90; PULSE 98; RESP 16; TEMP 36.6; O2SAT 95
[2023-12-02] MEDS: ERTAPENEM SODIUM 1 GM VIAL IM (15:07)
== END 2023-12-02 15:21 | disposition home or self-care (01) ==
LOC: INF 14:47
PROVIDERS: PCP Family Medicine; Visit Provider Family Medicine
DX: N39.0 Urinary tract infection, site not specified (principal)
CPT/HCPCS: 96372; J1335

== ENCOUNTER 2023-12-03 14:16 | Outpatient (CLI) | payer BC, SELFPAY ==
[2023-12-03] MEDS: ERTAPENEM SODIUM 1 GM VIAL IM (14:46)
[2023-12-03 14:51] VITALS: BP 125/91; PULSE 78; RESP 18; TEMP 36.6; O2SAT 97
== END 2023-12-03 14:51 | disposition home or self-care (01) ==
LOC: INF 14:17
PROVIDERS: PCP Family Medicine; Visit Provider Family Medicine
DX: N39.0 Urinary tract infection, site not specified (principal)
CPT/HCPCS: 96372; J1335

== ENCOUNTER 2023-12-04 12:49 | Outpatient (CLI) | payer BC, SELFPAY ==
[2023-12-04] MEDS: ERTAPENEM SODIUM 1 GM VIAL IM (13:35)
== END 2023-12-04 15:32 | disposition home or self-care (01) ==
LOC: INF 12:50
PROVIDERS: PCP Nurse Practitioner; Visit Provider Family Medicine
DX: N39.0 Urinary tract infection, site not specified (principal)
CPT/HCPCS: G0463; J1335

== ENCOUNTER 2023-12-05 14:37 | Outpatient (CLI) | payer BC, SELFPAY ==
[2023-12-05] MEDS: ERTAPENEM SODIUM 1 GM VIAL IM (15:04)
[2023-12-05 15:10] VITALS: BP 113/89; PULSE 98; RESP 18; TEMP 36.6; O2SAT 93
== END 2023-12-05 15:11 | disposition home or self-care (01) ==
LOC: INF 14:38
PROVIDERS: PCP Nurse Practitioner; Visit Provider Family Medicine
DX: N39.0 Urinary tract infection, site not specified (principal)
CPT/HCPCS: 96401; J1335

== ENCOUNTER 2023-12-06 13:06 | Outpatient (CLI) | payer BC, SELFPAY ==
[2023-12-06] MEDS: ERTAPENEM SODIUM 1 GM VIAL IM (13:18)
[2023-12-06 13:21] VITALS: BP 135/86; PULSE 89; RESP 18; TEMP 36.6; O2SAT 93
--- NOTE | 2023-12-06 13:24 | XR_ITS ---
FINAL REPORT CLINICAL HISTORY: cough, dizziness COMPARISON: None FINDINGS: Two views of the chest were obtained. The exam is slightly rotated to the right. The heart size and pulmonary vascularity are within normal limits. The mediastinum is normal. No acute pulmonary abnormality is identified. There is no pneumothorax. The bony thorax is intact. IMPRESSION: No active cardiopulmonary disease. Reviewed, Interpreted and Dictated by Basilio Berrios III, MD Transcribed by Veronika Murphy Authenticated and [facility]
[2023-12-06 13:58] LABS: Basophils % 0.8 % (0.1-2.0); Eosinophils # 0.4 K/mm3 (0.0-0.4); Eosinophils % 6.9 % (0.1-12.0); Hematocrit 43.4 % (37.0-47.0); Hemoglobin 14.4 g/dL (12.2-16.2); Lymphocytes # 1.8 K/mm3 (0.7-4.5); Lymphocytes % 31.4 % (10-50); Mean Corpuscular HGB Conc 33.3 g/dL (31.8-35.4); Mean Corpuscular Hemoglobin 28.8 pg (27.0-31.2); Mean Corpuscular Volume 86.7 fl (81-99); Mean Platelet Volume 9.1 fl (7.4-10.4); Monocytes # 0.3 K/mm3 (0.1-1.0); Monocytes % 4.9 % (1.7-9.3); Neutrophils # 3.2 K/mm3 (1.8-7.8); Neutrophils % 56.1 % (37.0-80.0); Platelet Count 252 K/mm3 (142-424); White Blood Count 5.7 K/mm3 (4.8-10.8)
[2023-12-06 14:11] LABS: Albumin Level 4.5 g/dl (3.5-5.0); Chloride 110 mmol/L (98-107); Potassium 4.3 mmoL/L (3.5-5.1); Sodium 142 mmol/L (136-145)
[2023-12-06 14:14] LABS: Alanine Aminotransferase 51 U/L (12-78); Albumin/Globulin Ratio 1.6 (1.1-1.8); Alkaline Phosphatase 77 U/L (38-126); Anion Gap 13.3 mEq/L (5-15); Aspartate Amino Transferase 51 U/L (14-36); Bilirubin,Total 0.5 mg/dl (0.2-1.3); Blood Urea Nitrogen 23 mg/dl (7-17); Carbon Dioxide 23 mmol/L (22.0-30.0); Estimated Glomerular Filt Rate 65 ml/min (>60); GFR (African American) 79 ML/MIN (>60); Globulin 2.9 g/dL (1.3-3.2); Total Protein,Serum 7.4 g/dl (6.3-8.2)
[2023-12-06 14:15] LABS: Calcium 9.9 mg/dl (8.4-10.2); Glucose 107 mg/dl (74-100)
[2023-12-06 14:33] LABS: Free T4 (Free Thyroxine) 1.08 ng/dl (0.78-2.19)
[2023-12-06 14:44] LABS: Thyroid Stimulating Hormone 0.67 uIU/mL (0.465-4.68)
[2023-12-06 15:48] LABS: Hemoglobin A1C 6.4 % (4.0-6.0)
== END 2023-12-06 13:21 | disposition home or self-care (01) ==
LOC: INF 13:06
PROVIDERS: Nurse Practitioner; PCP Family Medicine; Visit Provider Family Medicine
DX: R42 Dizziness and giddiness (principal)
CPT/HCPCS: 36415; 71046; 80050; 80053; 83036; 84439; 84443; 85025; 96372; J1335

== ENCOUNTER 2023-12-07 16:11 | Outpatient (CLI) | payer BC, SELFPAY ==
[2023-12-07 16:20] VITALS: BP 126/87; PULSE 85; RESP 16; TEMP 36.6; O2SAT 95
[2023-12-07] MEDS: ERTAPENEM SODIUM 1 GM VIAL IM (16:20)
== END 2023-12-07 16:35 | disposition home or self-care (01) ==
LOC: INF 16:12
PROVIDERS: PCP Nurse Practitioner; Visit Provider Family Medicine
DX: N39.0 Urinary tract infection, site not specified (principal)
CPT/HCPCS: 96372; J1335

== ENCOUNTER 2023-12-08 16:02 | Outpatient (CLI) | payer BC, SELFPAY ==
[2023-12-08 16:19] VITALS: BP 135/67; PULSE 74; RESP 18; TEMP 36.6; O2SAT 97
[2023-12-08] MEDS: ERTAPENEM SODIUM 1 GM VIAL IM (16:19)
== END 2023-12-08 16:36 | disposition home or self-care (01) ==
LOC: INF 16:03
PROVIDERS: PCP Nurse Practitioner; Visit Provider Family Medicine
DX: N39.0 Urinary tract infection, site not specified (principal)
CPT/HCPCS: 96372; J1335

== ENCOUNTER 2023-12-09 16:06 | Outpatient (CLI) | payer BC, SELFPAY ==
[2023-12-09 16:19] VITALS: BP 152/83; PULSE 83; RESP 18; TEMP 36.4; O2SAT 97
[2023-12-09] MEDS: ERTAPENEM SODIUM 1 GM VIAL IM (16:20)
== END 2023-12-09 16:26 | disposition home or self-care (01) ==
LOC: INF 16:06
PROVIDERS: PCP Family Medicine; Visit Provider Family Medicine
DX: N39.0 Urinary tract infection, site not specified (principal)
CPT/HCPCS: 96372; J1335

== ENCOUNTER 2023-12-13 16:18 | Outpatient (CLI) | payer BC, SELFPAY | END 2023-12-13 23:59 | disposition home or self-care (01) | LOC: LAB.DROPOF 12-14 15:16 | PROVIDERS: PCP Family Medicine; Visit Provider Family Medicine | DX: N39.0 Urinary tract infection, site not specified (principal) | CPT/HCPCS: 87086 ==

== ENCOUNTER 2023-12-16 17:00 | Outpatient (RCR) | payer BC, SELFPAY ==
--- NOTE | 2023-11-09 17:56 | HMH.RHREAS ---
Rehab Reassessment Rehab OP Re-assessment Start: 10/03/23 15:24 Freq: Status: Active Protocol: Document 11/09/23 17:28 JUAN (Rec: 11/09/23 17:55 [email or web address] [id number]) E-signed By Jess Herzog PT Rehab Re-assessment Subjective Subjective Pt reports she feels improved since starting PT. Pt reports her strength is better overall but her balance still feels iffy especially when walking on uneven ground. Pt denies recent falls or required use of an AD. Pt reports compliance with HEP. Objective Objective Notes RLE: hip flexion 4/5, hip abduction 4-/5, hip add 4-/5, hip ext 4-/5, knee flex 4/5, knee ext 4/5, ankle DF 4/5 [place]: FT/EO/unstable surface - fail; FT/EC/unstable - fail (10 seconds then self corrected LOB) + dysdiadochokinesia testing such as descreased speed/ difficulty with alternating toe taps Assessment Assessment Notes Pt has attended 6 PT treatment sessions consisting of aerobic exercise, LE strengthening, balance/ proprioception training and HEP with good tolerance. Pt demonstrated no significant change in overall strength and balance this date since the initial evaluation. Pt would continue to benefit from skilled PT to improve RLE strength, balance/ proprioception, coordination and functional activity tolerance to improve overall QOL and decrease fall risk . Patient goals met ST/1 LT/6 Goals Not Met strength, ambulation, balance Revised Goals n/a Plan Plan Continue initial POC Frequency of Therapy 2x/week Duration of therapy 4 more weeks Time and Billing Re-Eval Time 12 Re-Eval Billing Units 1 PHYSICIAN CERTIFICATION: I certify the specified therapy services for Elenita Wild are required, authorized, and reviewed every 30 days.
== END 2023-12-16 17:05 | disposition home or self-care (01) ==
LOC: PT 17:00
PROVIDERS: Visit Provider Nurse Practitioner
DX: I69.351 Hemiplegia and hemiparesis following cerebral infarction affecting right dominant side (principal); R26.89 Other abnormalities of gait and mobility
CPT/HCPCS: 97110; 97112; 97163; 97164; 97530

== ENCOUNTER 2024-03-13 12:00 | Outpatient (CLI) | payer BC, SELFPAY | END 2024-03-13 23:59 | disposition home or self-care (01) | LOC: LAB.DROPOF 03-14 09:28 | PROVIDERS: PCP Nurse Practitioner; Visit Provider Nurse Practitioner | DX: N39.0 Urinary tract infection, site not specified (principal) | CPT/HCPCS: 87086 ==

== ENCOUNTER 2024-05-24 15:37 | Outpatient (CLI) | payer BC, SELFPAY | END 2024-05-24 23:59 | disposition home or self-care (01) | LOC: LAB.DROPOF 05-25 10:26 | PROVIDERS: PCP Nurse Practitioner; Visit Provider Nurse Practitioner | DX: N30.00 Acute cystitis without hematuria (principal) | CPT/HCPCS: 87086 ==

== ENCOUNTER 2024-06-08 16:35 | Outpatient (CLI) | payer BC, SELFPAY ==
[2024-06-08 19:17] LABS: Microalbumin/Creatinine Ratio 27.6
[2024-06-08 19:18] LABS: Creatinine,Urine Random 97 mg/dL (Not Estab.)
== END 2024-06-08 23:59 | disposition home or self-care (01) ==
LOC: LAB.DROPOF 06-09 12:38
PROVIDERS: PCP Nurse Practitioner; Visit Provider Nurse Practitioner
DX: E78.5 Hyperlipidemia, unspecified (principal); E11.9 Type 2 diabetes mellitus without complications; I10 Essential (primary) hypertension; E03.9 Hypothyroidism, unspecified; E66.811 Obesity, class 1; N39.0 Urinary tract infection, site not specified
CPT/HCPCS: 82043; 82570; 87086; 87088; 87186

== ENCOUNTER 2024-06-14 09:37 | Outpatient (CLI) | payer BC, SELFPAY ==
[2024-06-14 10:10] LABS: Basophils # 0.1 K/mm3 (0-0.2); Basophils % 0.4 % (0.1-2.0); Eosinophils # 0.3 K/mm3 (0.0-0.4); Hematocrit 44.5 % (37.0-47.0); Hemoglobin 14.4 g/dL (12.2-16.2); Lymphocytes # 1.5 K/mm3 (0.7-4.5); Lymphocytes % 12.3 % (10-50); Mean Corpuscular HGB Conc 32.4 g/dL (31.8-35.4); Mean Corpuscular Hemoglobin 27.4 pg (27.0-31.2); Mean Corpuscular Volume 84.8 fl (81-99); Monocytes # 0.4 K/mm3 (0.1-1.0); Monocytes % 3.2 % (1.7-9.3); Neutrophils % 81.8 % (37.0-80.0); Platelet Count 268 K/mm3 (142-424); Red Blood Count 5.25 M/mm3 (4.20-5.40); Red Cell Distribution Width 14.1 % (11.5-17.5); White Blood Count 12.2 K/mm3 (4.8-10.8)
[2024-06-14 10:30] LABS: Chloride 107 mmol/L (98-107); Sodium 142 mmol/L (136-145)
[2024-06-14 10:33] LABS: Alanine Aminotransferase 39 U/L (12-78); Albumin/Globulin Ratio 1.7 (1.1-1.8); Alkaline Phosphatase 94 U/L (38-126); Aspartate Amino Transferase 43 U/L (14-36); Bilirubin,Total 0.6 mg/dl (0.2-1.3); Blood Urea Nitrogen 21 mg/dl (7-17); Carbon Dioxide 25 mmol/L (22.0-30.0); Cholesterol 124 mg/dl (140-200); Estimated Glomerular Filt Rate 65 ml/min (>60); GFR (African American) 78 ML/MIN (>60); Globulin 2.9 g/dL (1.3-3.2); Total Protein,Serum 7.9 g/dl (6.3-8.2); Triglycerides 86 mg/dl (30-150); VLDL Cholesterol 17 mg/dL (0-40)
[2024-06-14 10:34] LABS: Chol/HDL Ratio 2.9 (1-3.5); Glucose 106 mg/dl (74-100); HDL Cholesterol 43 mg/dl (40-60)
[2024-06-14 10:44] LABS: Direct LDL Cholesterol 51.58 mg/dL (100-129)
[2024-06-14 10:50] LABS: Free T4 (Free Thyroxine) 0.94 ng/dl (0.78-2.19)
[2024-06-14 10:52] LABS: 25-OH Vitamin D, Total 34.2 ng/mL (30-100)
[2024-06-14 11:05] LABS: Thyroid Stimulating Hormone 2.33 uIU/mL (0.465-4.68)
[2024-06-14 11:20] LABS: Hemoglobin A1C 5.9 % (4.0-6.0)
[2024-06-14 11:58] LABS: Vitamin B12 244 pg/mL (239-931)
== END 2024-06-14 23:59 | disposition home or self-care (01) ==
LOC: LAB 09:38
PROVIDERS: PCP Nurse Practitioner; Visit Provider Nurse Practitioner
DX: E78.5 Hyperlipidemia, unspecified (principal); E11.9 Type 2 diabetes mellitus without complications; Z79.85 Long-term (current) use of injectable non-insulin antidiabetic drugs; I10 Essential (primary) hypertension; E03.9 Hypothyroidism, unspecified; E66.811 Obesity, class 1; N39.0 Urinary tract infection, site not specified; Z68.32 Body mass index [BMI] 32.0-32.9, adult; E66.9 Obesity, unspecified
CPT/HCPCS: 80053; 80061; 82306; 82607; 83036; 84439; 84443; 85025

== ENCOUNTER 2024-10-07 19:33 | Emergency (ER) | payer BC, SELFPAY ==
--- OUTSIDE RECORDS SUMMARY | 2024-10-07 19:41 | XMS_ITS | Clinical Summary ---
Author Organization [facility] Address [address] [place] [address] Care Team Providers Care Ride Mechanic Name Role Phone Melissa Friend APRN Primary Care Provider [phone] Allergies Active Allergy Reactions Criticality Noted Date Comments Levofloxacin Itching Medium 09/05/2023 Medications atorvastatin (Lipitor) 80 MG tablet Take 1 tablet (80 mg) by mouth every night. 30 tablet 09/05/2023 Active cyclobenzaprine (Flexeril) 10 MG tablet Take 1 tablet (10 mg) by mouth 1 (one) time each day if needed for muscle spasms. Active DULoxetine (Cymbalta) [address] capsule Take 1 capsule (60 mg) by mouth 2 (two) times a day. Do not crush or chew. Active gemfibrozil (Lopid) 600 MG tablet Take 1 tablet (600 mg) by mouth 2 (two) times a day before meals. Active levothyroxine (Synthroid, Levoxyl) 50 MCG tablet Take 1 tablet (50 mcg) by mouth 1 (one) time each day. Active loratadine (Claritin) 10 MG tablet Take 1 tablet (10 mg) by mouth 1 (one) time each day. Active metFORMIN, OSM, (Fortamet) 500 MG 24 hr tablet Take 2 tablets (1,000 mg) by mouth 2 (two) times a day with meals. Do not crush, chew, or split. Active pregabalin (Lyrica) 100 MG capsule Take 1 capsule (100 mg) by mouth 2 (two) times a day. Active Rimegepant Sulfate (Nurtec) 75 MG tablet dispersible Take 1 tablet (75 mg) by mouth every other day. As needed Active semaglutide (Ozempic, 0.25 or 0.5 MG/DOSE,) 2 MG/1.5ML solution pen-injector inj. pen Inject 0.375 mL (0.5 mg) under the skin 1 (one) time per week. Active topiramate (Topamax) 25 MG tablet Take 1 tablet (25 mg) by mouth 2 (two) times a day. Active ascorbic acid (vitamin C) 500 MG tablet Take 1 tablet (500 mg) by mouth 1 (one) time each day. Active omega-3 (Fish Oil) 1000 MG capsule Take 1 capsule (1,000 mg) by mouth 1 (one) time each day. Active levETIRAcetam (Keppra) 750 MG tablet Take 1 tablet (750 mg) by mouth 2 (two) times a day. 60 tablet 09/07/2023 Active atenolol (Tenormin) 50 MG tablet Take 1 tablet (50 mg) by mouth every night. 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 09/05/2023 Resolved Problems Problem Noted Date Diagnosed Date Resolved Date Episodic confusion 09/07/2023 Immunizations Immunization Administration Dates Next Due Influenza, injectable, quadrivalent, preservativ e free 02/28/2016 Family History Medical History Relation Name Comments Cardiac disorder Father Colon cancer Father Diabetes Father Hypertension Father Stroke Father Diabetes Mother Hypertension Mother Stroke Mother Liver disease Other Relation Name Status Comments Father Mother Other Social History Tobacco Use Types Packs/Day Years Used Date Smoking Tobacco: Former Alcohol Use Standard Drinks/Week Comments No 0 (1 standard drink = 0.6 oz pur e alcohol) Humiliation, Afraid, Rape, and Kick questionnair e Answer Date Recorded Within the last year, have y ou been afraid of your partner or ex-partner? No 09/07/2023 Within the last year, have y ou been humiliated or emotionally abused in other ways by your partner or ex-partner? No Within the last year, have y ou been kicked, hit, slapped, or otherwise physically hurt by your partner or ex-partner? No 09/07/2023 Within the last year, have y ou been raped or forced to have any kind of sexual activity by your partner or ex-partner? No 09/07/2023 Social Connection and Isolation Panel Answer Date Recorded In a typical week, how many times do you talk on the phone with family, friends, or neighbors? Three times a week 09/08/2023 How often do you get togethe r with friends or relatives? Three times a week 09/08/2023 How often do you attend up health system or baptist services? More than 4 times per year 09/08/2023 Do you belong to any clubs o r organizations such as mormonism groups, unions, fraternal or athletic groups, or school groups? Yes 09/08/2023 How often do you attend meet ings of the clubs or organizations you belong to? More than 4 times per year 09/08/2023 Are you , , di vorced, , never , or living with a partner? 09/08/2023 AUDIT-C Answer Date Recorded Q1: How often do you have a drink containing alcohol? Never 09/08/2023 Q2: How many drinks containi ng alcohol do you have on a typical day when you are drinking? Patient does not drink Q3: How often do you have si x or more drinks on one occasion? Never 09/08/2023 [facility] - Occupational Stress Questionnaire Answer Date Recorded Do you feel stress - tense, restless, nervous, or anxious, or unable to sleep at night because your mind is troubled all the time - these days? Not at all 09/08/2023 Exercise Vital Sign Answer Date Recorde d On average, how many days pe r week do you engage in moderate to strenuous exercise (like a brisk walk)? 0 days 09/08/2023 On average, how many minutes do you engage in exercise at this level? 0 min 09/08/2023 Hunger Vital Sign Answer Date Recorded Within the past 12 months, y ou worried that your food would run out before you got the money to buy more. Never true 09/07/19 24 Within the past 12 months, t he food you bought just didn't last and you didn't have money to get more. Never true 09/07/2023 PRAPARE - Transportation Answer Date Re corded In the past 12 months, has l ack of transportation kept you from medical appointments or from getting medications? No 11/2023 In the past 12 months, has l ack of transportation kept you from meetings, work, or from getting things needed for daily living? No 09/07/2023 Housing Stability Vital Sign Answer Rakesh e Recorded In the last 12 months, was t here a time when you were not able to pay the mortgage or rent on time? No 09/07/2023 In the last 12 months, how many places have you lived? 1 09/07/2023 In the last 12 months, was t here a time when you did not have a steady place to sleep or slept in a penitentiary (including now)? No 09/07/2023 CAGE ASSESSMENT Answer Date Recorded Cage unable to access Not on file 09/07/2023 Cage max number of drinks Not on file 2023 Cage Beverages a week Not on file 09/07/2023 Have you ever felt you should CUT down on your d rinking? 0 09/07/2023 Have you been ANNOYED by people criticizing your drinking? 0 09/07/2023 Have you felt GUILTY about your drinking? 0 09/07/2023 Have you had a drink first t rupesh in the morning (EYE-IV RN) to steady your nerves or to get rid of a hangover? 0 09/07/2023 CAGE Questionnaire Score 0 024 Utilities Answer Date Recorded In the past 12 months has th e electric, gas, oil, or water company threatened to shut off services in your home? No 09/07/2023 Comments Unknown Sex and Gender Information Value Date Recorded Sex Assigned at Not on file Legal Sex Female 7:51 PM EDT Gender Identity Not on file Sexual Orientation Not on file Last Filed Vital Signs Vital Sign Reading Time Taken Comments Blood Pressure 113/76 09/07/2023 12:00 PM EDT Pulse 78 09/07/2023 12:00 PM EDT Temperature 36.7 C (98 F) 09/07/2023 12:02 PM EDT Respiratory Rate 20 09/07/2023 12:00 PM EDT Oxygen Saturation 92% 09/07/2023 11:59 AM EDT Inhaled Oxygen Concentration - - Weight 89.6 kg (197 lb 8.5 oz) 09/05/2023 9:11 P M EDT Height 157.5 cm (5' 2 ) 09/05/2023 9:11 PM EDT Body Mass Index 36.13 09/05/2023 9:11 PM EDT Plan of Treatment Health Maintenance Due Date Last Done Comments [facility]-Depression Screening 1970 [facility]-Infant/Child/Adol SDOH Screenings 1970 [facility]- SDOH Screenings 01/28/1986 [facility]-Adult SDOH Screenings 01/28/1986 [facility]-Hepatitis B Vaccines (1 of 3 - 19+ 3-dose series) 01/28/1987 [facility]-DTaP,Tdap,and Td Vaccines (1 - Tdap) 07/07/1996 07/06/1996 [facility]-Pap Smear 03/14/2012 03/14/2009 CT Colonography 01/28/2013 Colonoscopy 01/28/2013 FIT-DNA 01/28/2013 FIT 01/28/2013 FOBT 01/28/2013 Sigmoidoscopy 01/28/2013 [facility]-Colorectal Cancer Screening 01/28/2013 [facility]-Cervical Cancer Screening 03/14/2014 [facility]-HPV/Cotest 03/14/2014 03/14/2009 [facility]-Breast Cancer Screening 01/28/2018 [facility]-Zoster Vaccines (1 of 2) 01/28/2018 [id number] Vaccine (2 - Shane risk series) 09/04/2020 08/07/2020 [facility]-Pneumococcal Vaccine: 50+ Years (2 of 2 - PCV) 09/04/2021 09/04/2020 [facility]-Influenza Vaccine (Season Ended) 2025 02/25/2023, 03/10/2022, 02/20/2021, Additional history exists [facility]-Hepatitis A Vaccines Aged Out 06/21/2018 No longer eligible based on patient's age to complete this topic [facility]-Diabetes: Hemoglobin A1C Discontinued 09/05/2023, 02/28/2016 [facility]-HIV Screening Completed 09/05/2023 [facility]-Hepatitis C Screening Completed 09/05/2023 [facility]-Obesity Intervention Completed 09/05/2023, 0508/2023 HPV Vaccines Aged Out No longer eligi ble based on patient's age to complete this topic [facility]-HIB Vaccines Aged Out No longer e ligible based on patient's age to complete this topic [facility]-IPV Vaccines Aged Out No longer e ligible based on patient's age to complete this topic [facility]-Rotavirus Vaccines Aged Out No lo nger eligible based on patient's age to complete this topic Procedures Procedure Name Priority Date/Time Associated Diagnosis Comments HEPATITIS C ANTIBODY - ED W/REFLEX TO HCV QUANT PCR STAT 09/05/2023 5:47 AM EDT ED HIV 1/2 ANTIBODY/ANTIGEN SCREEN WITH REFLEX TO HIV I/II DIFFERENTIATION STAT 09/05/2023 5:47 AM EDT HEMOGLOBIN A1C Add-On 09/05/2023 5:47 AM EDT CYTO DATA CONVERSION Routine 03/14/2009 12:00 AM EST from Last 3 Months or Most Recently Relevant to Health Maintenance Results * ED HIV 1/2 Antibody/Antigen Screen w/Reflex to HIV 1/2 Differentiation (09/05/2023 5:47 AM EDT) HIV 1 & 2 Antibody/Antigen Screen Non Reactive Non Reactive 09/05/2023 6:49 AM EDT [facility] Comment:Screening for HIV 1 & 2 antibodies, and P24 antigen is NONREACTIVE. No confirmatory testing is required. Blood Venous blood specimen / Unknown Venipuncture / Unknown 09/05/2023 5:47 AM EDT 09/05/2023 6:08 AM EDT Issa Mccracken MD LAB BLOOD ORDERABLES Final Result [facility] [address] [place] [address] * Hepatitis C Antibody - ED (09/05/2023 5:47 AM EDT) Hepatitis C Antibody Negative Negative 09/05/2023 6:50 AM EDT HEALTHCARE LAB Blood Venous blood specimen / Unknown Venipuncture / Unknown 09/05/2023 5:47 AM EDT 09/05/2023 6:08 AM EDT us Issa Mccracken MD LAB BLOOD ORDERABLES Final Result Performing Organization Address [facility] Co de Phone Number [facility] [address] [place] [address] * (ABNORMAL) Hemoglobin A1c (09/05/2023 5:47 AM EDT) Hemoglobin A1c 6.4(H) <5.7 % 09/05/2023 8:01 AM EDT [facility] Blood Venous blood specimen / Unknown Venipuncture / Unknown 09/05/2023 5:47 AM EDT 09/05/2023 5:56 AM EDT Narrative [facility] - 09/05/2023 8:01 AM EDT HA1C Interpretive Data: Diagnosis of Diabetes: Diabetic > or = 6.5% Pre-diabetic 5.7 to 6.4% Non-diabetic < or = 5.6% Glycemic Targets for Type I and Type II Diabetics: Non- Adults <7.0% Adults <6.0% Children and Adolescents <7.5% Source: [place] [employer]. Standards of medical care in diabetes,2017. Diabetes Care.2017:40 (suppl 1):S1-S135. HbA1c assay performed by an ion-exchange chromatography method that is certified traceable to the DCCT. us Mushtaq Irene MD LAB BLOOD ORDERABLES Final Re sult Performing Organization Address City/[facility]/ZIP Co de Phone Number [facility] [address] [place] [address] * Cytology (03/14/2009 12:00 AM EST) Cerebrospinal fluid specimen (specimen) 03/14/2009 03/15/2009 9 :26 AM EST Narrative [facility] - 03/18/2009 11:22 AM EST [facility] MR #: [id number] [facility] [place] [address] 1970 (Age: 39) FW Collect Date: 03/14/2009 00:00 Receipt Date: 03/15/2009 09:26 Page 1 DEPARTMENT OF PATHOLOGY AND LABORATORY MEDICINE CYTOPATHOLOGY REPORT Email: [email or web address] [phone] ATTENDING MD/Practitioner: Harjinder Curran MD Service: NANCY Location: 8S OTHER MD(S): Wallace Dhillon MD Reported: 03/18/2009 11:22 Collected: 03/14/2009 00:00 DIAGNOSIS A. CEREBROSPINAL FLUID: NO EVIDENCE OF MALIGNANCY. Electronically Signed Out FRANCES Cabrera(ASCP) Clement Sosa M.D. PROCEDURES/ADDENDA GROSS DESCRIPTION: 7 ml's clear fluid. CLINICAL INFORMATION: CLINICAL DIAGNOSIS Vasculitis SPECIMEN DESCRIPTION: A: CEREBROSPINAL FLUID CYTOSPIN x 2 ICD: 447.6 ARTERITIS NOS (VASCULITIS, NOS) F: [id number] EXVA/PAPI SNOMED CODES: A; [id number] A resident has participated in this service. A pathologist has performed and is responsible for the reported pathologic evaluation. us Historical Provider MD LAB PATHOLOGY ORDERABLES Final Result JOHNNY from Last 3 Months or Most Recently Relevant to Health Maintenance Insurance MELINDA Advance Directives * Full Code (Latest Code Status on File) Date Activated Date Inactivated Comments 09/05/2023 11:52 PM 09/07/2023 5:28 PM Question Answer Comments Patient has decision-making capacity? Yes * Full Code Date Activated Date Inactivated Comments 09/05/2023 5:25 AM 09/05/2023 5:42 PM Question Answer Comments Patient has decision-making capacity? Yes Care Teams Ride Mechanic Relationship Specialty Start Date End Date Melissa Friend APRN [address] [place] [address] PCP - General 09/05/23
--- OUTSIDE RECORDS SUMMARY | 2024-10-07 19:41 | XMS_ITS | Clinical Summary ---
Author Organization [facility] Address [address] [place] [address] Care Team Providers Care Commercial Green Building Architect Name Role Phone Melissa Friend HOUSE SUPERINTENDENT Primary Care Provider [phone] Source Comments This information has been disclosed to you from confidential records protectedfrom disclosure by state law. You shall make no further disclosure of thisinformation without the specific, written, and informed release of theindividual to whom it pertains, or as otherwise permitted by law. A generalauthorization for the release of medical or other information is not sufficientfor the purposes of therelease of HIV test results or diagnoses. [id number] Allergies Active Allergy Reactions Criticality Noted Date Comments Levofloxacin Itching Medium 08/07/2008 Medications metFORMIN (GLUCOPHAGE) 500 MG tablet Take 1 tablet (500 mg total) by mouth 2 times a day with meals. Active atenoloL (TENORMIN) 50 MG tablet Take 1 tablet (50 mg total) by mouth daily. Active DULoxetine (CYMBALTA) 60 MG capsule Take 1 capsule (60 mg total) by mouth 2 times a day. Active gemfibroziL (LOPID) 600 MG tablet Take 1 tablet (600 mg total) by mouth 2 times a day before meals. Active levothyroxine (SYNTHROID) 50 MCG tablet Take 1 tablet (50 mcg total) by mouth every morning before breakfast. Active aspirin 81 MG chewable tablet Chew 1 tablet (81 mg total) by mouth daily. Active loratadine (CLARITIN) 10 mg tablet Take 1 tablet (10 mg total) by mouth daily. Active levETIRAcetam (KEPPRA) 750 MG tablet Take 1 tablet (750 mg total) by mouth 2 times a day. Active atorvastatin (LIPITOR) 80 MG tablet Take 1 tablet (80 mg total) by mouth daily. Active pregabalin (LYRICA) 100 MG capsule Take 1 capsule (100 mg total) by mouth 2 times a day. Active topiramate (TOPAMAX) 25 MG tablet Take 1 tablet (25 mg total) by mouth 2 times a day. Active cyclobenzaprine (FLEXERIL) 10 MG tablet Take 1 tablet (10 mg total) by mouth if needed for Muscle spasms. Active rimegepant 75 mg TbDL Take 1 tablet (75 mg total) by mouth if needed. Active Active Problems No known active problems Family History Medical History Relation Comments Cancer Father Colon cancer Cancer Mother Bone and breast Diabetes Mother Stroke Mother Relation Status Comments Father Mother Social History Tobacco Use Types Packs/Day Years Used Date Smoking Tobacco: Former Cigarettes 0.3 5.2 Smokeless Tobacco: Never Alcohol Use Standard Drinks/Week Comments Not Currently 0 (1 standard drink = 0.6 oz pur e alcohol) PHQ-2 Answer Date Recorded PHQ-2 Total Score 0 01/23/2024 Yearly Questionnaire Answer Date Record ed Do you need any assistance w ith obtaining housing, meals, medication, transportation or medical equipment? No 01/22 Assistance needed for: Not on file 4 Yearly Questionnaire Answer Date Record ed Do you need any assistance w ith obtaining housing, meals, medication, transportation or medical equipment? No 01/22 Assistance needed for: Not on file 4 Yearly Questionnaire Answer Date Record ed Do you need any assistance w ith obtaining housing, meals, medication, transportation or medical equipment? No 01/22 Assistance needed for: Not on file 4 Comments No Sex and Gender Information Value Date Recorded Sex Assigned at Female 10/12/2023 10:46 AM EDT Legal Sex Female 2:32 PM EDT Gender Identity Female 10/12/2023 10:46 AM EDT Sexual Orientation Straight 10/12/2023 10 :46 AM EDT Last Filed Vital Signs Vital Sign Reading Time Taken Comments Blood Pressure 125/88 12/27/2023 1:14 PM EDT Pulse 95 12/27/2023 1:14 PM EDT Temperature 36 C (96.8 F) 12/27/2023 1:14 PM EDT Respiratory Rate - - Oxygen Saturation 92% 12/27/2023 1:14 PM EDT Inhaled Oxygen Concentration 92% 12/27/2023 1 :14 PM EDT Weight 78.9 kg (174 lb) 12/27/2023 1:14 PM EDT Height 152.4 cm (5') 12/27/2023 1:14 PM EDT Body Mass Index 33.98 12/27/2023 1:14 PM EDT Plan of Treatment Health Maintenance Due Date Last Done Comments Abnormal Colonoscopy Follow Up 1970 Diabetes Screening 1970 Hepatitis C Screening (MyChart) 1970 HIV Screening 01/28/1986 Immunization: Hepatitis B (1 of 3 - 19+ 3-dose series) 01/28/1987 Immunization: DTaP/Tdap/Td ( 1 - Tdap) 07/07/1996 07/06/1996 Cervical Cancer Screening/Pa p Smear (MyChart) 01/28/1998 Mammogram (MyChart) 2008 Cologuard (FIT-DNA) 01/28/2013 Colonoscopy 01/28/2013 Colorectal Cancer Screening (MyChart) 01/28/2013 Stool Testing (gFOBT) 01/28/2013 Immunization: Zoster (1 of 2) 01/28/2018 Immunization: Pneumococcal ( 2 of 2 - PCV) 09/04/2021 09/04/2020 Immunization: COVID-19 ( - season) 2024 08/07/2020 Immunization: Influenza (MyC pierson) (Season Ended) 2025 02/25/2023, 03/10/2022, 02/20/2021, Additional history exists Depression Screening 01/22/2025 01/23/2024, 12/27/19 24 Insurance BLUE ACCESS Care Teams Commercial Green Building Architect Relationship Specialty Start Date End Date Melissa Friend NP [address] [place] [address] [facility] [address] [place] [address] PCP - General 10/11/23
--- OUTSIDE RECORDS SUMMARY | 2024-10-07 19:41 | XMS_ITS | Data Portability ---
Author Organization JOHNATHAN [facility] BARRIE Ponce [place] Address [address] [facility] [address] [place] [address] Care Team Providers Care Wellness Nurse Rn Name Role Phone MILAGROS JOSÉ Primary Care Provider Mike BRICE Referring Provider Assessment Encounter Date Assessment Date Assessment LastModified by Organization Details LastModified Time 02/04/2023 02/04/2023 53 yo new pt here today for TAVERA Significant h/o stroke in 2008 and TIA in 2016. This is left her with a right visual field cut and some mild weakness in the right upper and right lower extremity. History of sleep apnea but no longer on the CPAP Will refer her back to sleep medicine for LYLE evaluation For the headaches, she has found that Nurtec is helpful and they are planning to start using every other day for prevention. Will try to get records from [facility] on the or CTA done in the last 2 years - may need referral to vascular surgery FU with the neurologist in [email or web address] Not available 02/04/2023 15:54:03 Plan of Treatment Reminders Order Date Submit Date Provider Last Modified By Organization Details Last Modified Time Details Appointments None recorded. Lab glucose, fingerstic k, blood 2022 023 [facility], [address] [place] [address], [id number], 3 15:44:42 hemoglobin A1C, fingerstic k 2022 023 [facility], [address] [place], [address], 3 15:44:42 TSH, serum or plasma 2022 023 [facility], [address] [place] [address], [id number], 3 16:58:13 T4, free, serum 2022 023 [facility], [address] [place] [address], [address], 3 16:58:11 glucose, fingerstic k, blood 2022 023 [facility], [address] [place] [address], [address], 3 14:51:34 hemoglobin A1C, fingerstic k 2022 023 [facility], [address] [place] [address], [address], 3 14:51:35 microalbum in/creatin ine, mass ratio, urine 2022 023 [facility], [address] [place] [address], [address], 3 15:56:13 BMP, serum or plasma 2022 023 [facility], [address] [place] [address], [address], 3 15:55:28 TSH, serum or plasma 2022 023 [facility], [address] [place] [address], [address], 3 15:59:57 T4, free, serum 2022 023 [facility], [address] [place] [address], [address], 3 15:59:59 lipid panel, serum 2022 023 [facility], [address] [place] [address], [address], 3 15:55:30 hepatic function panel, serum 2022 023 [facility], [address] [place] [address], [address], 3 15:55:31 Referral sleep medicine referral 2022 023 [email or web address] 3 Jami Jacobs PA-C, [facility], [address], [address], 09:38:46 Procedures None recorded. Surgeries None recorded. Imaging None recorded. Medication Orders Ozempic 0.25 mg or 0.5 mg (2 mg/3 mL) subcutaneo us pen injector 2022 023 [id number], [address], [place], [address], 3 15:02:16 metformin ER 500 mg tablet,ext ended release 24 hr 2022 023 [facility], [address], [place], [address], 3 15:02:12 Patient TargetsNo targets recorded. Patient Instructions Encounter Date Encounter Id Patient Instructions Last Modified By Organization Details Last Modified Time 09/02/2016 [id number] sleep apnea: car e instructions [email or web address] Not available 09/03/2016 14:44:16 transient ischemic attack: care instructions [email or web address] Not available 09/03/2016 14:44:16 high blood pressure: care instructions [email or web address] Not available 09/03/2016 14:44:16 learning about high blood pressure [email or web address] Not available 09/03/2016 14:44:16 high cholesterol : care instructions [email or web address] Not available 09/03/2016 14:44:16 CC: Jeanine José APRN [email or web address] Not available 09/02/2016 10:38:22 02/04/2023 [id number] medical record request* [email or web address] Not available 02/11/2023 08:00:26 Reason for Referral Sleep Medicine Referral for Obstructive sleep apnea syndrome Referring Physician: Laine Hannon, Neurology, Encounter Date: 02/04/2023 Results Created Date Observation Date Name Description Value Unit Range Abnormal Flag Note LastModifiedBy Organization Detail LastModifiedTime 09/24/19 23 09/23/2022 BASIC METAB OLIC PANEL glucose 124 mg/dL 74-100 high Not Available [facility] [address] [place] [address], [id number], 09/23/2022 15:55:28 09/24/19 23 09/23/2022 BASIC METAB OLIC PANEL blood urea nitrogen 25 mg/dL 6-20 high Not Available [facility] [address] [place] [address], [address], 09/23/2022 15:55:28 09/24/19 23 09/23/2022 BASIC METAB OLIC PANEL creatinine 0.77 mg/dL 0.50-0 .95 normal Not Available [facility] [address] [place] [address], [address], 09/23/2022 15:55:28 09/24/19 23 09/23/2022 BASIC METAB OLIC PANEL BUN/creatini ne ratio 32 (calc ) 10-20 high Not Available [facility] [address] [place] [address], [address], 09/23/2022 15:55:28 09/24/19 23 09/23/2022 BASIC METAB OLIC PANEL sodium 142 mmol/ L 136-14 5 normal Not Available [facility] [address] [place] [address], [address], 09/23/2022 15:55:28 09/24/19 23 09/23/2022 BASIC METAB OLIC PANEL potassium 4.5 mmol/ L 3.4-5. 0 normal Not Available [facility] [address] [place], [address], 09/23/2022 15:55:28 09/24/19 23 09/23/2022 BASIC METAB OLIC PANEL chloride 104 mmol/ L 98-107 normal Not Available [facility] [address] [place] [address], [address], 09/23/2022 15:55:28 09/24/19 23 09/23/2022 BASIC METAB OLIC PANEL carbon dioxide 25 mmol/ L 22-31 normal Not Available [facility] [address] [place] [address], [address], 09/23/2022 15:55:28 09/24/19 23 09/23/2022 BASIC METAB OLIC PANEL anion gap 13 (calc ) 7-25 normal Not Available [facility] [address] [place] [address], [address], 09/23/2022 15:55:28 09/24/19 23 09/23/2022 BASIC METAB OLIC PANEL calcium 11.0 mg/dL 8.6-10 .2 high Not Available [facility] [address] [place] [address], [address], 09/23/2022 15:55:28 09/24/19 23 09/23/2022 BASIC METAB OLIC PANEL GFR 91 >= 60 normal NOT E New calcu latio n for GFR (CKD- EPI 2020) is formu lated witho ut race adjus tment facto rs at the recom menda tion of the Hodan Benavidez y Matt Reale ty of Nephr ology . This calcu latio n has not been valid ated in pregn ant women . For pedia tric patie nts refer to https :[email or web address] g quiñonez.michel hernandez.o rg/pr ofess ional s/KDO QI/gf r_cal culat orPed Not Available [facility] [address] [place] [address], [address], 09/23/2022 15:55:28 09/24/19 23 09/23/2022 LIPID PROFI LE HDL cholesterol 40 mg/dL 50-242 low Not Available [facility] [address] [place] [address], [address], 09/23/2022 15:55:29 09/24/19 23 09/23/2022 LIPID PROFI LE triglyceride s 183 mg/dL 0-149 high TRIGL YCERI DE RANGE S ANNA MARIE L: < 150 BORDE RLINE HIGH: 150 - 199 HIGH: 200 - 499 VERY HIGH: > OR = 500 Not Available [facility] [address] [place] [address], [address], 09/23/2022 15:55:29 09/24/19 23 09/23/2022 LIPID PROFI LE cholesterol 128 mg/dL 0-199 normal HOOD STERO L (TOTA L) RANGE S MASON ABLE: < 200 BORDE RLINE : 200 - 239 HIGHE R RISK: > 239 Not Available [facility] [place], [address], 09/23/2022 15:55:29 09/24/19 23 09/23/2022 LIPID PROFI LE LDL cholesterol 51 mg/dL _(carrol c) 0-99 normal LDL HOOD STERO L RANGE S OPTIM AL: < 100 NEAR/ ABOVE OPTIM AL: 100 - 129 BORDE RLINE HIGH: 130 - 159 HIGH: 160 - 189 VERY HIGH: > OR = 190 Not Available [facility] [address] [place] [address], [address], 09/23/2022 15:55:29 09/24/1909/23/2022 HEPAT IC (LIVE R) PANEL AST 31 U/L 0-32 normal Not Available [facility] [place], [address], 09/23/2022 15:55:31 09/24/19 23 09/23/2022 HEPAT IC (LIVE R) PANEL ALT 28 U/L 0-33 normal Not Available [facility] [address] [place] [address], [address], 09/23/2022 15:55:31 09/24/19 23 09/23/2022 HEPAT IC (LIVE R) PANEL alkaline phosphatase 77 U/L 30-121 normal Not Available [facility] [address] [place] [address], [address], 09/23/2022 15:55:31 09/24/19 23 09/23/2022 HEPAT IC (LIVE R) PANEL total protein 8.3 g/dL 6.4-8. 3 normal Not Available [facility] [address] [place] [address], [address], 09/23/2022 15:55:31 09/24/19 23 09/23/2022 HEPAT IC (LIVE R) PANEL albumin 5.0 g/dL 3.5-5. 2 normal Not Available [facility] [address] [place] [address], [address], 09/23/2022 15:55:31 09/24/19 23 09/23/2022 HEPAT IC (LIVE R) PANEL bilirubin, total 0.3 mg/dL 0.1-1. 2 normal Not Available [facility] [address] [place] [address], [address], 09/23/2022 15:55:31 09/24/19 23 09/23/2022 HEPAT IC (LIVE R) PANEL bilirubin, direct <0.2 mg/dL 0.0-0. 3 normal Not Available [facility] [address] [place] [address], [address], 09/23/2022 15:55:31 09/24/19 23 09/23/2022 HEPAT IC (LIVE R) PANEL bilirubin, indirect see below mg/dL _(carrol c) 0.0-1. 0 normal Unabl e to calcu late Indir ect Bilir ubin. Not Available [facility] [address] [place] [address], [address], 09/23/2022 15:55:31 09/24/19 23 09/23/2022 MICRO ALBUM IN/CR EAT RATIO microalbumin , random 76 mg/L 0-19 high Not Available [facility] [address] [place] [address], [address], 09/23/2022 15:56:13 09/24/19 23 09/23/2022 MICRO ALBUM IN/CR EAT RATIO creatinine,u r,random 105 mg/dL normal NO ANNA MARIE L RANGE ESTAB LISHE D FOR RANDO M URINE . Not Available [facility] [address] [place] [address], [address], 09/23/2022 15:56:13 09/24/19 23 09/23/2022 MICRO ALBUM IN/CR EAT RATIO MA/creatinin e ratio 72 mcg/m g_cre at 0-29 high Not Available [facility] [address] [place] [address], [address], 09/23/2022 15:56:13 09/24/19 23 09/23/2022 TSH TSH 0.183 u[IU] /mL 0.270- 4.200 low Not Available [facility] [address] [place] [address], [address], 09/23/2022 15:59:57 09/24/19 23 09/23/2022 T4,FR EE T4,free 1.49 NG/dL 0.93-1 .70 normal Not Available [facility] [address] [place] [address], [address], 09/23/2022 15:59:59 09/24/19 23 09/23/2022 hemog lobin A1C, finge rstic k hemoglobin A1C % 7.4 % 4.0 - 5.6 Not Available [facility] [address] [place] [address], [address], 09/23/2022 14:33:14 09/24/19 23 09/23/2022 gluco se, finge rstic k, blood glucose, fingerstick 133 mg/dL 70 - 100 Not Available [facility] [address] [place] [address], [address], 09/23/2022 14:32:58 01/15/20 23 01/14/2023 T4,FR EE T4,free 1.15 NG/dL 0.93-1 .70 normal Not Available [facility] [address] [place] [address], [address], 01/14/2023 16:58:11 01/15/20 23 01/14/2023 TSH TSH 1.800 u[IU] /mL 0.270- 4.200 normal Not Available [facility] [address] [place] [address], [address], 01/14/2023 16:58:13 01/15/20 23 01/14/2023 hemog lobin A1C, finge rstic k hemoglobin A1C % 7.0 % 4.0 - 5.6 Not Available [facility] [address] [place] [address], [address], 01/14/2023 15:14:24 01/15/20 23 01/14/2023 gluco se, finge rstic k, blood glucose, fingerstick 160 mg/dL 70 - 100 Not Available [facility] [address] [place] [address], [address], 01/14/2023 15:07:11 02/06/20 23 06/12/2022 US, carot id arter y No observ ation record ed. [facility] (Med Record) [address], [place], [address], 02/05/2023 10:50:23 Result Notes None recorded. Problems Name Problem SNOMED Code Status Onset Date Resolution Date Notes Provider Name and Address Organization Details Recorded Time Transient cerebral ischemia 857968125 Active 2015 From Automated Load;Provi jenny: Lakesha Samuels;Stat us: [facility] Disorder of nervous system due to type 2 diabetes mellitus 351213655 Active 2015 From Automated Load;Provi jenny: Lakesha Samuels;Stat us: Active Sabrina Pierre [facility] 9 07:40:40 Hypertensi ve disorder 38045504 Active 2015 From Automated Load;Provi jenny: Lakesha Samuels;Stat us: Active Sabrina Pierre [facility] 9 07:40:40 Hyperlipid emia 78587430 Active 2015 From Automated Load;Provi jenny: Lakesha Samuels;Stat us: [facility] 07:[facility]40 Problem Notes None recorded. Procedures Surgical History Date Name Laterality Status Provider Name and Address Organization Details Recorded Time Cholecystectomy completed Deena mcmillan [facility] 09/02/2016 08:46:36 Other completed Deena Milton [facility] 09/02/2016 08:46:42 Imaging Results None recorded. Procedure Notes None recorded. Medical Equipment None Reported. Allergies Allergen ID Allergen Name Allergen Category Reaction Reaction Severity Criticality Documentation Date Start Date Code Code System Note Provider Name and Address Organization Details Recorded Time 025726 Levaquin medicatio n itching Not available Not available 03/27/20162008 66967 2 RxNorm React ion: ITCHI NG; Comme nt: Creat ed By: Jacqui Mckeon praveena Date: 009 3:23: 03 PM; Not Available [facility] 6 05:33:05 Medications Name Sig Start Date Stop Date Status Note LastModified by Organization Details LastModified Time cyclobenz aprine 10 mg tablet TAKE 1 TABLET BY MOUTH ONCE DAILY NEEDED FOR MUSCLE RELAXATI ON active Not Available Not Available No t Available amoxicill in 500 mg capsule 09/23 completed Not Available Not Available Not Available atorvasta tin 40 mg tablet TAKE 1 TABLET BY MOUTH ONCE DAILY active Not Available Not Available No t Available promethaz ine-DM 6.25 mg-15 mg/5 mL oral syrup 02/04 completed Not Available Not Available Not Available oxybutyni n chloride ER 10 mg tablet,ex tended release 24 hr active Not Available Not Available Not Available azithromy turner 250 mg tablet 09/23 completed Not Available Not Available Not Available fluconazo le 150 mg tablet active Not Available Not Available Not Available benzonata te 200 mg capsule TAKE 1 CAPSULE BY MOUTH THREE TIMES DAILY NEEDED FOR COUGH active Not Available Not Available No t Available hydrocodo ne 5 mg-acetam inophen 325 mg tablet active Not Available Not Available Not Available lisinopri l 20 mg tablet TAKE 1 TABLET BY MOUTH ONCE DAILY active Not Available Not Available No t Available topiramat e 25 mg tablet TAKE 1 TABLET BY MOUTH TWICE DAILY active Not Available Not Available No t Available aspirin 81 mg tablet,de layed release TAKE 1 TABLET BY MOUTH ONCE DAILY FOR HEART HEALTH active Not Available Not Available No t Available levothyro xine 75 mcg tablet TAKE 1 TABLET BY MOUTH ONCE DAILY FOR HYPOTHYR OID 09/23 completed Not Available Not Available Not Available levothyro xine 100 mcg tablet 09/02 completed Not Available Not Available Not Available levothyro xine 88 mcg tablet TAKE 1 TABLET BY MOUTH ONCE DAILY 09/23 completed Not Available Not Available Not Available amoxicill in 875 mg tablet 09/02 completed Not Available Not Available Not Available meclizine 25 mg tablet Take 1 tablet 3 times a day by oral route as needed. active Not Available Not Available No t Available benzonata te 100 mg capsule active Not Available Not Available Not Available gemfibroz il 600 mg tablet TAKE 1 TABLET BY MOUTH TWICE DAILY active Not Available Not Available No t Available levothyro xine 50 mcg tablet TAKE 1 TABLET BY MOUTH ONCE DAILY . APPOINTM ENT REQUIRED FOR FUTURE REFILLS active Not Available Not Available No t Available cephalexi n 500 mg capsule TAKE 1 CAPSULE BY MOUTH THREE TIMES DAILY FOR 7 DAYS 09/23 completed Not Available Not Available Not Available oseltamiv ir 75 mg capsule active Not Available Not Available Not Available metformin 1,000 mg tablet TAKE 1 TABLET BY MOUTH ONCE DAILY FOR DIABETES 09/23 completed Not Available Not Available Not Available lisinopri l 10 mg tablet Bedtime 09/23 completed Not Available Not Available Not Available Humulin 70/30 U-100 Insulin 100 unit/mL subcutane ous suspensio n Two times a day 09/23 completed Instruct ions: 30 minutes before meal;Sim quency: bid;Medi cation Descript ion: insulin isophane -insulin regular; Dosage:a s directed ; Route:saini bcutaneo us; refills: 0; Quantity :1 Not Available Not Available Not Available gabapenti n 300 mg capsule Take 1 capsule 3 times a day by oral route. 02/04 completed Not Available Not Available Not Available aspirin 81 mg chewable tablet CHEW AND SWALLOW 1 TABLET BY MOUTH ONCE DAILY active Not Available Not Available No t Available aspirin 81 mg tablet Daily active Duration : 30 days;Sim quency: daily;Me dication Descript ion: aspirin; Dosage:1 ; refills: 0; Quantity :30 Not Available Not Available Not Available ergocalci ferol (vitamin D2) 1,250 mcg (50,000 unit) capsule TAKE 1 CAPSULE BY MOUTH ONCE A WEEK active Not Available Not Available No t Available methylpre dnisolone 4 mg tablets in a dose pack TAKE BY MOUTH DIRECTED ON INSIDE OF PACKAGE active Not Available Not Available No t Available albuterol sulfate HFA 90 mcg/actua tion aerosol inhaler INHALE 2 PUFFS BY MOUTH EVERY 4 TO 6 HOURS NEEDED FOR SHORTNES S OF BREATH FOR WHEEZING active Not Available Not Available No t Available cefdinir 300 mg capsule TAKE 1 CAPSULE BY MOUTH TWICE DAILY active Not Available Not Available No t Available fluticaso ne propionat e 50 mcg/actua tion nasal spray,inderjit pension USE 2 SPRAY(S) IN EACH NOSTRIL ONCE DAILY active Not Available Not Available No t Available metformin ER 500 mg tablet,ex tended release 24 hr TAKE 4 TABLETS BY MOUTH ONCE DAILY WITH MEALS active Not Available Not Available No t Available lisinopri l 2.5 mg tablet Bedtime 09/02 completed Not Available Not Available Not Available atenolol 50 mg tablet TAKE 1 TABLET BY MOUTH ONCE DAILY active Not Available Not Available No t Available amoxicill in 875 mg-potass ium clavulana te 125 mg tablet 09/23 completed Not Available Not Available Not Available tobramyci n 0.3 %-dexamet hasone 0.1 % eye drops,inderjit pension 02/04 completed Not Available Not Available Not Available Allergy Relief (loratadi ne) 10 mg tablet TAKE 1 TABLET BY MOUTH ONCE DAILY active Not Available Not Available No t Available Loratadin e-D 10 mg-240 mg tablet,ex tended release 24 hr active Not Available Not Available Not Available rosuvasta tin 40 mg tablet TAKE 1 TABLET BY MOUTH ONCE DAILY AT NIGHT AT BEDTIME active Not Available Not Available No t Available Crestor 5 mg tablet Daily 09/02 completed Frequenc y: daily;Me dication Descript ion: rosuvast atin; Dosage:1 ; Route:or al; refills: 5; Quantity :30 tablet Not Available Not Available Not Available lancing device active Not Available Not Available Not Available metformin ER 500 mg tablet,ex tended release 24hr (osmotic) TAKE 1 TABLET BY MOUTH TWICE DAILY active Not Available Not Available No t Available duloxetin e 60 mg capsule,d elayed release TAKE 1 CAPSULE BY MOUTH TWICE DAILY FOR PAIN active Not Available Not Available No t Available Vesicare 10 mg tablet Daily 09/02 completed Frequenc y: daily;Me dication Descript ion: solifena turner; Dosage:1 ; Route:or al; refills: 0 Not Available Not Available Not Available pregabali n 100 mg capsule TAKE 1 CAPSULE BY MOUTH TWICE DAILY FOR PAIN active Not Available Not Available No t Available Lyrica 75 mg capsule active Not Available Not Available Not Available Januvia 50 mg tablet TAKE 1 TABLET BY MOUTH ONCE DAILY 09/23 completed Not Available Not Available Not Available Humalog Mix 75-25 KwikPen U-100 insulin 100 unit/mL subcutane ous pen 09/23 completed Not Available Not Available Not Available Prodigy No Coding strips active Not Available Not Available Not Available BD Ultra-Fin e Jihan Pen Needle 32 gauge x active Not Available Not Available Not Available Ultra Thin Lancets 31 gauge active Not Available Not Available Not Available Ozempic 0.25 mg or 0.5 mg (2 mg/1.5 mL) subcutane ous pen injector INJECT 0.25MG SUBCUTAN EOUSLY ONCE A WEEK FOR DIABETES 09/23 completed Not Available Not Available Not Available OneTouch Ultra Blue Test Strip active Not Available Not Available Not Available Nurtec ODT 75 mg disintegr ating tablet TAKE 1 TABLET BY MOUTH EVERY OTHER DAY NEEDED FOR MIGRAINE active Not Available Not Available No t Available Ozempic 0.25 mg or 0.5 mg (2 mg/3 mL) subcutane ous pen injector INJECT 0.5 MG SUBCUTAN EOUSLY ONCE A WEEK active Not Available Not Available No t Available Vitals Date Recorded Body height Body weight Body mass index (BMI) Heart rate Systolic blood pressure Diastolic blood pressure Provider Name and Address Organization Details Last Updated DateTime 7 157.48 cm 48348.3 3 g 35.3 kg/m2 95 /min 134 mm[Hg] 94 mm[Hg] Deena cardoso [facility] 7 10:02:31 Date Recorded Body weight Heart rate Systolic blood pressure Diastolic blood pressure Provider Name and Address Organization Details Last Updated DateTime 09/23/2022 53337.03 g 86 /min 146 mm[Hg] 86 mm[Hg] Zoe Otoole [facility] 09/23/2022 14:31:42 Date Recorded Body weight Body mass index (BMI) Body height Heart rate Systolic blood pressure Diastolic blood pressure Provider Name and Address Organization Details Last Updated DateTime 3 71084.1 8 g 36.3 kg/m2 152.4 cm 82 /min 140 mm[Hg] 82 mm[Hg] Irma Paezlius [facility] 3 15:09:12 Date Recorded Body height Body mass index (BMI) Body weight Heart rate Oxygen saturation Oxygen saturation in Arterial blood by Pulse oximetry Systolic blood pressure Diastolic blood pressure Provider Name and Address Organization Details Last Updated DateTime 3 152.4 cm 36.9 kg/m2 91875.9 6 g 70 /min 97 % 97 % 122 mm[Hg] 80 mm[Hg] Nora Leon [facility] 3 14:45:12 Social History Question Answer Notes LastModified by Organizat ion Details LastModified Time Tobacco Smoking Status Never Smoker Deena Milton [facility] 09/02/2016 08:46:26 Live Alone Or With Others? With Others Information not available 09/02/2016 Marital Status Informat ion not available 09/02/2016 Sex: Unknown Functional Status Question Answer Note LastModified by Organizat ion Details LastModified Time What is your level of alcohol consumption? None [email or web address] Information not available 09/02/2016 What is your occupation? Unemployed [employer] Information not available 09/02/2016 Mental Status None recorded. Family History Relationship Description Onset Age of this Age Resolved Age Notes LastModified by Organization Details LastModified Time Father Family history of malignant neoplasm [email or web address] Not available 07/2016 08:45:56 Father Hypertensive disorder [email or web address] Not available 07/2016 08:46:06 Father Parkinson's disease [email or web address] Not available 07/2016 08:46:10 Mother Diabetes mellitus [email or web address] Not available 07/2016 08:46:00 Mother Cerebrovascu lar accident [email or web address] Not available 09/02/2016 08:46:16 Maternal Grandmother Diabetes mellitus awinefordner Not available 07/2016 08:46:00 Medical History Condition Response Depression Y Stroke Y High Cholesterol Y Diabetes Y Hypertension Y Gynecological HistoryNo gynecological history recorded. Obstetrics History GPAL:G 0 P 0 0 0 0 Past Encounters Encounter ID Performer Location Encounter Start Date Encounter Closed Date Diagnosis/Indication Diagnosis SNOMED-CT Code Diagnosis ICD10 Code Diagnosis Note [id number] LAKESHA SAMUELS MD NEUROLOGY [facility] [address] [place] [address] 09/02/2016 09:09:14 09/02/2016 11:05:57 Transient cerebral ischemia [id number] G45.9 New TIA, 02/27/16 with R sided numbness, w/u at [facility] reportedly negative incuding MRI. She has multiple vascular risk factors including diabetes, hypertensi on, hyperlipid emia, obesity, LYLE and previous stroke. 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 Recent inflammato ry labs are negative. She has mild residual R hemianopsi a, mild R hyperesthe pravin, R-sided neuropathi c pain, nearly resolved R hemiparesi s. Vascular risk factors: obesity, LYLE (on CPAP), HTN, hyperlipid emia, DM-II. Headaches, neck pain, episodic, tension related, Flexeril helps - Continue ASA chewable w/food- Continue lisinopril 10 mg and atenolol 50 mg-- Recommend that she discuss w/PCP about increasing her blood pressure medication or adding new, goal BP 120/80 or less- Start CoQ10 300mg qam- Start on fish oil- Continue CPAP - be consistent - After completing vit D rx, start on Vit D3 2000u daily-- Goal vit D25-OH is 50 - 60- Tight control of blood pressure - goal is <= 120/80- Continue heart healthy diet-- Strongly encouraged her to start exercising daily- RTC 1 year or sooner PRN CC: Jeanine José APRN Essential hypertension [id number] I10 see abpve Hyperlipidemia 04168089 E78.5 Diabetes mellitus 473138 09 E11.49 Obstructiv e sleep apnea syndrome [id number] G47.33 [id number] IVAN MORALES MD ENDOCRINO [address] [place] [address] 09/23/2022 14:17:51 09/23/2022 15:07:26 Uncontrolled type 2 diabetes mellitus [id number] E11.65 A1c of 7.4 in the office todayI had a lengthy discussion with patient about the deleteriou s consequenc es of uncontroll ed hyperglyce carolina in the form of microvascu lar complicati ons such as diabetic retinopath y, worsening of diabetic nephropath y, diabetic neuropathy and macrovascu lar complicati ons such as coronary artery disease, peripheral arterial disease and stroke. I had a lengthy discussion with patient about the importance of dietary carbohydra te consistenc y and restrictio n and not exceed 45 g of carbohydra te per meal and 15 30 grams per snack if needed.Rec ommended to further increase her Ozempic dose to 0.5 mg subcu weeklyRech celina kidney function test todayFor normal GFR with further increase metformin to 4 tablets daily10 g monofilame nt testing showed bilaterall y diminished sensationG FR of 65 in January 2022Instru cted to check her blood glucose 1 times daily alternatin g between before dinner, at bedtime and upon awakening and bring her glucose meter with her to the officeGoal blood glucoseBef ore meals and upon awakenin-1301-2 After meals or at bedtime: < 1803 months average [goal A1c] < 7 Hyperlipidemia [id number] E78.5 LDL, direct above goalRechec k lipid panel and LFTs todayCouns eled about the importance of low-choles terol low saturated fat dietContin ue current gemfibrozi l as well as statin therapy Hypothyroidism 83109640 E03.9 TSH of 0.21 in January2Dose decreased to her current dose of levothyrox ine 75 mcgRecheck TSH and free T4 levels todayFurth er adjustment as appropriat ePatient verbalized understand ing and agreed with the above mentioned plan of care. [id number] IVAN MORALES MD ENDOCRINO [address] [place] [address] 01/14/2023 15:02:14 01/14/2023 16:16:28 Uncontrolled type 2 diabetes mellitus [id number] E11.65 A1c of 7% down from 7.4 in the office todayHoa mckeon point-of-c are blood glucose of 160Goal A1c less than 7%Mended patient in achieving goal glycemic control. We will continue current metformin therapy and Ozempic low-doseGF R of 65 in January 2022Instru cted to check her blood glucose 1 times daily alternatin g between before dinner, at bedtime and upon awakening and bring her glucose meter with her to the officeGoal blood glucoseBef ore meals and upon awakenin-1301-2 After meals or at bedtime: < 1803 months average [goal A1c] < 7 Hypothyroidism [id number] E03.9 TSH of 0.21 in January2Dose decreased to her current dose of levothyrox ine 50 mcgRecheck TSH and free T4 levels todayFurth er adjustment as appropriat ePatient verbalized understand ing and agreed with the above mentioned plan of care. [id number] LAINE HANNON MD NEUROLOGY [facility] [address] [place] [address] 02/04/2023 14:30:03 02/05/2023 04:20:25 Migraine [id number] G43.909 Obstructiv e sleep apnea syndrome [id number] G47.33 Carotid ar golden stenosis 60290345 I65.29 Health Concerns Section Related Observation LastModified by Organization Brandie tejada LastModified Time None Recorded Concern Status LastModified by Organization Details LastModified Time None Recorded Advance Directives Directive None Recorded Payers Insurance Date Sequence Insurance Name Policy Number Policy Black Covered Member ID Black Member ID Guarantor Name 01/14/2023 1 [employer] [id number] Robert Wild [id number] Elenita Wild 07/12/2023 1 [employer] [id number] Robert Wild [id number] Elenita Wild Notes Date Note Type Note Provider Name and Address Organization Details Recorded Time 7 text/html Her daughter and grandson are present during the appointment. She is doing well. Currently working on her weight, been eating less and better. Hasn't really been exercising all that much. Cut out fried foods, eating more salads and vegetables, making sure to add color to her plate. Taking 2 cholesterol medications at this time, gemfibrozil and atorvastatin. Still taking her ASA daily. Currently taking duloxetine 60 mg bid and gabapentin 1 cap tid. Taking cyclobenzaprine once a day for her headaches/muscle relaxation. Currently taking meclizine PRN for dizziness. On oxybutynin for her bladder control which is a somewhat big problem. Taking atenolol for her blood pressure. On her last dose of Vit D rx and then will have it checked again. Pain is reasonable controlled at this point. Her daughter does question if there is a way to be able to decrease the Lyrica cost due to it being too expensive. Denies being on CoQ10 or a fish oil. Denies any focal numbness, weakness, or tingling. Denies vision changes. Denies changes or difficulties in gait. Denies any difficulties w/depression. BP not well controlled. Denies being on a diuretic for BP. 02/28/16 CTA neck shows moderate stenosis of the L common carotid artery, diminutive R vertebral artery with no flow seen past the C1 transverse foramen. 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 MRI brain REPORTEDLY with no restricted diffusion 02/26 and 2015 Labs show K 3.7 03/29 -> 3.4 03/30, HbA1C 6.3, TChol 165, HDL 38 (L), LDL 94 (H in DM) TG 163 (H), slightly elevated AST, ALT, normal CBC, CMP, TSH, troponins, PTT, PT/NNR. Inflammatory w/u was not performed. U/A with elevated WBC, large blood, elevated LE, + squames. Impression of the team was that although pt has h/o vasculitis from 2008 demonstarted on CTA, she now has prominent artheroscloerotic disease. 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 I am concerned that moderate stenosis L ICA referable to symptoms of R sided numbness. In her history, sypmtoms were clearly not amnestic of the remote stroke but new and transient symptoms. Labs 04/01/17ESR - 13ANA - NEGATIVEAngiotensin Convert.Enzyme - 3 (L)ANCA - NEGATIVE LAKESHA SAMUELS MD [address] [place] [address], [phone], [facility] 09/02/2016 10:40:41 3 text/html 52-year-old female with a past medical history as detailed in the problem is significant for morbid obesity, hypertension, hyperlipidemia on therapy, hypothyroidism on thyroid hormone replacement therapy uncontrolled type 2 diabetes complicated by peripheral diabetic neuropathy, cerebrovascular stroke, seen today as a new consultation uncontrolled type 2 diabetes, hypothyroidism evaluation further management.Referring provider: Maritza Friend/Dr. Tania ALVAREZIn the office accompanied by her daughter Diabetes history: Onset of diabetes: Diabetic for about 12 yearsMother and grandmother with diabetes Current diabetes regimen: Insulin:Has not taken any insulin for the past 6 years Oral medications:Metformin 500 mg ER 2 tablets daily Ozempic 0.25 mg subcu weekly Diabetes related complications: Diabetes related eye disease: Previously seen at [facility]. 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 No meter provided today Hypoglycemia: None by history Exercise/activity: Diet: Number of daily meals: Excess carbs consumption: noTakes levothyroxine 75 mcg every a.m. dose IVAN MORALES MD [address] [place] [address], [phone], [facility] 09/23/2022 15:04:22 3 text/html 52-year-old female with a past medical history as detailed in the problem is significant for morbid obesity, hypertension, hyperlipidemia on therapy, hypothyroidism on thyroid hormone replacement therapy uncontrolled type 2 diabetes complicated by peripheral diabetic neuropathy, cerebrovascular stroke, seen today as a follow-up uncontrolled type 2 diabetes and hypothyroidism Referring provider: Maritza Friend/Dr. Tania ALVAREZIn the office accompanied by her daughterDiabegarcía history:Onset of diabetes: Diabetic for about 12 yearsMother and grandmother with diabetesCurrent diabetes regimen:st 6 yearsOral medications:Metformin 500 mg ER 2 tablets dailyOzempic 0.25 mg subcu weekly. Unable to increase her dose because reported having hypoglycemia in the 50s with increasing Ozempic to 0.5Diabetes related complications:Diabetes related eye disease: Previously seen at [facility].Diabetes related kidney disease: History of kidney stoneDiabetic neuropathy: Peripheral diabetic neuropathyDiabetic macro-vascular disease: Yes history of CVA and residual right-sided hemiparesisSelf monitoring of blood glucose: No glucose meter provided today Takes levothyroxine 50 mcg down from 75 mcg every a.m. dose IVAN MORALES MD [address] [place] [address], [phone], [facility] 01/14/2023 15:46:04 3 text/html 53 yo new pt here today with muscle weakness referred by Mushtaq Brice MDPreviously saw Dr. 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 Then TIA, 02/27/16 with R sided numbness.No imaging in [facility] only for blood thinning Has seen a neurologist in [facility] and they told her that her carotid arteries are both blocked. They did some kind of imaging to see that. They were told that one was 100% blocked and one 50% blocked and they wouldn't do anything until the better one is 90% blocked No recent signs of stroke or TIA.Has had a stent put into one of the cerebral arteries in 2008 at after her strokeStill some right sided weakness residual from the stroke Big problem has been the headaches - come every couple of days and does have headache free daysTriggers: nothing that she has noticedFeels like a tightening band around her head. No nausea, no photophobiaHas tried: atenolol for BP for a while. Tried topamax on 01/21/23 - can't tell any difference yet. Uses nurtec and that does help when she takes it - insurance will cover that. She is going to start on the Nurtec every other day for prevention. Pt and her daughter report no issues with muscle weakness. History of LYLE - no longer using her CPAP. Doesn't often wake up with TAVERA.She snoresSleeps from about 8:30p to 4a (husbands alarm), then 6:30a (gets grandkids on bus) and then eventually gets up around 8:30 or 9aDoesn't really feel too tired during the day, no napping LAINE HANNON MD [address] [place], [address], [facility] 02/05/2023 08:17:42 OBGyn Episode No OBEpisode recorded.
[2024-10-07 19:44] VITALS: BP 141/98; PULSE 98; RESP 14; TEMP 37.4; O2SAT 92; BMI 32.2
[2024-10-07 20:00] VITALS: BP 129/90; PULSE 95; RESP 17; O2SAT 91
--- NOTE | 2024-10-07 20:07 | ECG_ITS ---
APPROVED REPORT Exam: Resting ECG HR:92 bpm ECG Measurements Heart Rate 92 AXES KS 160 P 60 QRSd 89 QRS 37 QT 356 T 37 QTc 406 Conclusion SINUS RHYTHM POSSIBLE INFERIOR MYOCARDIAL INFARCTION , PROBABLY OLD [30 ms Q WAVE IN II/aVF] BORDERLINE ECG UNCONFIRMED REPORT Electronically signed by : Arben Fischer, 10/07/2024 23:21:02
--- NOTE | 2024-10-07 20:08 | CT_ITS ---
PROCEDURE INFORMATION: Exam: CT Head Without Contrast Exam date and time: 10/07/2024 8:19 PM Age: 54 years old Clinical indication: Numbness / parasthesia; Right; Additional info: Tingling in right arm TECHNIQUE: Imaging protocol: Computed tomography of the head without contrast. Radiation optimization: All CT scans at this facility use at least one of these dose optimization techniques: automated exposure control; mA and/or kV adjustment per patient size (includes targeted exams where dose is matched to clinical indication); or iterative reconstruction. COMPARISON: CT ANGIO HEAD 09/04/2023 8:46 PM FINDINGS: Brain: Stable generalized cerebral atrophy. Stable large area of encephalomalacia in the left temporo-occipital region. Chronic lacunar infarcts in the bilateral thalami and basal ganglia. Chronic diffuse white matter changes. No intracranial mass, hemorrhage or evidence of acute ischemia. Cerebral ventricles: No ventriculomegaly. Paranasal sinuses: Visualized sinuses are unremarkable. No fluid levels. Mastoid air cells: Visualized mastoid air cells are well aerated. Bones: Unremarkable. No acute fracture. Soft tissues: Unremarkable. IMPRESSION: No acute intracranial abnormality. Stable chronic findings as noted.
--- NOTE | 2024-10-07 20:13 | ED_ITS ---
<Statement entered by Mike Fischer MD - 10/07/24 23:18> I was consulted by the BENIGNO, and we discussed the complexity of the problems being addressed. I approved the treatment and management plan for this patient's care in the emergency department, thus performing a substantive portion of the medical decision making. Mike Fischer MD, RAYMUNDO, FACEP Discharge Plan Disposition Chief Complaint: Neuro Symptoms/Deficit Prescriptions Prescriptions: No Action bisacodyl [Dulcolax (bisacodyl)] 10 mg suppository 10 mg NM DAILY PRN (Reason: constipation) Qty: 12 0RF sennosides [senna] 8.6 mg tablet 8.6 mg PO DAILY Qty: 30 2RF meclizine 25 mg tablet 25 mg PO DAILY PRN (Reason: Nausea) Qty: 270 0RF estradiol 0.01 % (0.1 mg/gram) cream See Rx Instructions vaginal .COMPLEX Qty: 42.5 2RF Rx Instructions: Using finger technique daily for two weeks and then twice weekly vaginally; topiramate 25 mg tablet 25 mg PO BID Qty: 60 5RF Nurtec ODT 75 mg tablet,disintegrating See Rx Instructions .ROUTE .COMPLEX Qty: 8 5RF Dose Instruction: DISSOLVE 1 TABLET BY MOUTH EVERY OTHER DAY NEEDED FOR MIGRAINE Rx Instructions: DISSOLVE 1 TABLET BY MOUTH EVERY OTHER DAY NEEDED FOR MIGRAINE fluticasone propionate [Flonase Allergy Relief] 50 mcg/actuation spray,suspension 2 spray intranasal DAILY Qty: 48 1RF Rx Instructions: administer into each nostril Ozempic 1 mg/dose (4 mg/3 mL) pen injector 1 mg SQ WEEKLY Qty: 9 1RF pregabalin 100 mg capsule 100 mg PO BID Qty: 60 3RF loratadine [Allergy Relief (loratadine)] 10 mg tablet See Rx Instructions .ROUTE .COMPLEX Qty: 90 0RF Dose Instruction: Take 1 tablet by mouth once daily Rx Instructions: Take 1 tablet by mouth once daily levothyroxine 50 mcg tablet 50 mcg PO DAILY Qty: 90 0RF aspirin 81 mg tablet,delayed release (DR/EC) See Rx Instructions .ROUTE .COMPLEX Qty: 90 0RF Dose Instruction: TAKE 1 TABLET BY MOUTH ONCE DAILY FOR HEART HEALTH Rx Instructions: TAKE 1 TABLET BY MOUTH ONCE DAILY FOR HEART HEALTH atorvastatin 80 mg tablet 80 mg PO HS Qty: 90 0RF duloxetine 60 mg capsule,delayed release(DR/EC) See Rx Instructions .ROUTE .COMPLEX Qty: 180 1RF Dose Instruction: TAKE 1 CAPSULE BY MOUTH TWICE DAILY FOR PAIN Rx Instructions: TAKE 1 CAPSULE BY MOUTH TWICE DAILY FOR PAIN levetiracetam 750 mg tablet See Rx Instructions .ROUTE .COMPLEX Qty: 180 0RF Dose Instruction: Take 1 tablet by mouth twice daily Rx Instructions: Take 1 tablet by mouth twice daily metformin 500 mg tablet 500 mg PO BID Qty: 60 2RF gemfibrozil 600 mg tablet 600 mg PO BID Qty: 180 0RF Referrals Follow up/Referrals: Melissa Friend APRN [Primary Care Provider, Family Practice] - See instructions Print Language Print Language: Cuban Discharge ED Provider: Mike Fischer General Adult HPI General Chief complaint: Neuro Symptoms/Deficit Stated complaint: Tingling in hand and R Leg Time Seen by Provider: 10/07/24 19:55 Mode of Arrival: Ambulatory Source of Information: Patient and Relative Description of Symptoms (Recalled from ER Triage Doc. by RN): Pt presents with c/o right arm and leg tingling. Pt reports arm tingling began approx 1 week ago with leg tingling beginning today. Pt reports HX of CVA approx 15 years ago on the same side of her body. Pt denies CP/SOA. Pt diabetic with BG here 120. History of Present Illness HPI narrative: 54-year-old female presents to the ED today for complaint of numbness in her hand and tingling in her right leg. The numbness in her hand has been going on for the past 3 to 4 days. She says this comes and goes all the time. She had a stroke 15 years ago. Patient started with tingling in her right leg today. She does have peripheral neuropathy due to diabetes and hypertension. She denies chest pain or shortness of breath. She has no sensation differences or other symptoms. Patient just wants to be sure this is not a stroke. Blood pressure is normal, heart rate is normal. states that he monitors everything at home. She sees her neurologist every 6 months. She just recently saw the neurologist. She does take Ozempic once weekly for her diabetes. She has lost 40 pounds over the past 6 months. She has no other complaints today. Related Data Previous Rx's ?Medication ?Instructions ?Recorded meclizine 25 mg tablet 25 mg PO DAILY PRN Nausea #2 70 tabs 09/08/23 topiramate 25 mg tablet 25 mg PO BID #60 tabs estradiol 0.01% (0.1 mg/gram) See Rx Instructions vagi nal 04/03/24 vaginal cream .COMPLEX #42.5 grams rimegepant 75 mg disintegrating See Rx Instructions .R oute 04/03/24 tablet (Nurte ODT) .COMPLEX #8 tabs fluticasone propionate 50 2 spray intranasal DAILY #48 grams 05/26/24 mcg/actuation nasal spray,suspension (Flonase Allergy Relief) semaglutide 1 mg/dose (4 mg/3 mL) 1 mg (0.75 mL) SQ WE EKLY #9 mL 06/12/24 subcutaneous pen injector (Ozempic) pregabalin 100 mg capsule 100 mg PO BID Pain #60 caps 06/28/24 loratadine 10 mg tablet (Allergy See Rx Instructions . Route 07/03/24 Relief (loratadine)) .COMPLEX #90 tabs levothyroxine 50 mcg tablet 50 mcg PO DAILY #90 tabs 0 07/24/24 aspirin 81 mg tablet,delayed See Rx Instructions .Rout e 07/31/24 release .COMPLEX #90 tabs atorvastatin 80 mg tablet 80 mg PO HS #90 tabs 5 duloxetine 60 mg capsule,delayed See Rx Instructions . Route 08/10/24 release .COMPLEX #180 ea levetiracetam 750 mg tablet See Rx Instructions .Route 08/14/24 .COMPLEX #180 tabs bisacodyl 10 mg rectal suppository 10 mg NM DAILY PRN constipation 08/17/24 (Dulcolax (bisacodyl)) #12 ea sennosides 8.6 mg tablet (senna) 8.6 mg PO DAILY #30 t abs 08/17/24 metformin 500 mg tablet 500 mg PO BID #60 tabs 09/07 gemfibrozil 600 mg tablet 600 mg PO BID Diabetes #180 tabs 09/29/24 Allergies Allergy/AdvReac Type Severity Reaction Status Date / Time levofloxacin (LEVOFLOXACIN) Allergy Unknown Verified 08/17/24 15:37 [facility] Disclaimer: The information contained in this section may have been updated after the patient was seen, as this information can be updated by other users. Medical History Recurrent UTI Balance problem Transient neurological symptoms Hypothyroidism Right homonymous hemianopsia History of nephrolithiasis Migraine Depression Hyperlipidemia Hypertension DM type 2 (diabetes mellitus, type 2) History of CVA (cerebrovascular accident) Obesity (BMI 30.0-34.9) Hypothyroidism Surgical History History of cholecystectomy Family History Other Cancer Coronary artery disease Diabetes Heart attack Hyperlipidemia Hypertension Hypothyroidism Social History (Updated 08/17/24 @ 15:31 by Jeanine Marin MA) Smoking Status: Never smoker alcohol intake: never substance use type: denies use current occupational status: disabled Travel in the last 8 weeks?: None household members: family housing: house Have you lived/traveled outside US in past 30 days?: No Contact w/someone who lives/traveled outside US past 30 days?: No Exposure to someone with infectious disease in past 14 days?: No Do you have a fever (greater than 100.4 F or 38 C)?: No Have you tested positive for COVID-19?: No Exposed to someone with COVID-19 in past 14 days?: No Do you have a sore throat?: No Do you have a cough?: No Do you have any weakness?: No Do you have any diarrhea?: No Are you experiencing any unusual bleeding?: No Do you have any muscle aches/pain?: No Do you have any abdominal pain?: No Are you experiencing loss of taste or smell?: No Other Medical History Have you received the Pneumonia Vaccine: Yes ROS Obtained: Yes Systems reviewed as appropriate & no additional complaints except as documented Physical Exam General General appearance: alert and in no apparent distress Head Head exam: atraumatic and normocephalic Eye Eye exam: Present normal appearance, PERRL and EOMI ENT ENT exam: Present normal oropharynx and mucous membranes moist Neck Neck exam: Present full ROM and trachea midline Respiratory Respiratory exam: Present normal lung sounds bilaterally Cardiovascular Cardiovascular exam: Present regular rate, normal rhythm, normal heart sounds, +S1 and +S2 Abdominal Exam Abdominal exam: Present soft and normal bowel sounds Extremities Exam Extremities exam: Present normal inspection, full ROM and normal capillary refill Neurological Exam Neurological exam: Present alert, oriented X3 and normal gait Skin Skin exam: Present warm, dry and intact Medical Decision Making Medical Records Screening: Per USPSTF and CDC recommendations, given the prevalence of disease in our region, it is our hospital?s policy to screen for HIV and viral Hepatitis for all patients aged 18 and over and those with ongoing risk factors. Jason Inquiry Pt receiving controlled substance: No Jason was queried for this patient: No Vital Signs: 10/07/24 19:44 10/07/24 20:00 10/07/24 20:30 Temperature 99.3 F Temperature Source Oral Pulse Rate 95 H 93 H Pulse Rate [Radial] 98 H Respiratory Rate 14 17 19 Blood Pressure 129/90 139/85 Blood Pressure [Right Arm] 141/98 H Blood Pressure Mean [Right Arm] 112 Blood Pressure Position [Right Arm] Sitting 02 Sat by Pulse Oximetry 92 L 91 L 91 L Oxygen Delivery Method Room Air 10/07/24 21:41 Temperature 97.9 F Temperature Source Oral Pulse Rate 86 Pulse Rate [Radial] Respiratory Rate 14 Blood Pressure 142/86 H Blood Pressure [Right Arm] Blood Pressure Mean [Right Arm] Blood Pressure Position [Right Arm] 02 Sat by Pulse Oximetry Oxygen Delivery Method Room Air Lab Data Lab Results 10/07/24 19:45: WBC 7.3, RBC 5.14, Hgb 14.6, Hct 43.9, MCV 85.4, MCH 28.4, MCHC 33.3, RDW 13.6, Plt Count 285, MPV 11.1 H, Neut % (Auto) 53.1, Lymph % (Auto) 34.0, [place] % (Auto) 6.1, Eos % (Auto) 5.9, Baso % (Auto) 0.6, Neut # (Auto) 3.9, Lymph # (Auto) 2.5, [place] # (Auto) 0.4, Eos # (Auto) 0.4, Baso # (Auto) 0.0, PT 10.6, INR 0.95, APTT 26.3, Sodium 140, Potassium 3.9, Chloride 107, Carbon Dioxide 25, Anion Gap 11.9, BUN 25 H, Creatinine 0.90, Estimated Creat Clear 82, Estimated GFR 65, Est GFR ( Amer) 78, Glucose 120 H, Calcium 10.1, Magnesium 1.8, Total Bilirubin 0.7, AST 47 H, ALT 34, Alkaline Phosphatase 97, Troponin I < 0.01, Total Protein 8.1, Albumin 4.7, Globulin 3.4 H, Albumin/Globulin Ratio 1.4, Lipase 379 H 10/07/24 19:45 10/07/24 19:45 Orders (Tests/Meds): ED MEDICATIONS Discontinued Medications Generic Name Dose Route Start Last Admin Trade Name Alyssa PRN Reason Stop Dose Admin Iopamidol 80 ml 10/07/24 21:07 10/07/24 21:08 Iopamidol-370 (76%);100ml Bottle IV 10/07/24 21:08 80 ml ONCE ONE Administration Sodium Chloride 50 ml 10/07/24 21:07 10/07/24 21:08 0.9 % Sodium Chloride 50 Ml Vial IV 10/07/24 21:08 50 ml ONCE ONE Administration Sodium Chloride 10 ml 10/07/24 21:07 10/07/24 21:08 Sodium Chloride 0.9% 10ml Syr (Rad Only) IV 10/07/24 21:08 10 ml ONCE ONE Administration ORDERS Category Date Time Status CT angio head Stat Cat Scan 10/07/24 20:[address] angio neck Stat Cat Scan 10/07/24 20:[address] head/brain wo con Stat Cat Scan 10/07/24 20:08 Completed CBC [Complete Blood Count Auto Diff] Stat Lab 10/07/24 19:45 Completed Comprehensive Metabolic Panel Stat Lab 10/07/24 19:45 Completed Lipase Stat Lab 10/07/24 19:45 Completed Magnesium Stat Lab 10/07/24 19:45 Completed PT INR [Prothrombin Time INR] Stat Lab 10/07/24 19:45 Completed PTT [Activated Partial Thrombo Time] Stat Lab 10/07/24 19:45 Completed Trop I [Troponin I] Stat Lab 10/07/24 19:45 Completed Troponin I Q3H Lab 10/07/24 23:15 Ordered Troponin I Q3H Lab 10/08/24 02:15 Ordered Medical Decision Narrative: patient is a 54-year-old female presenting to the emergency department for evaluation of tingling in her right hand and numbness in her right leg. Patient is hemodynamically stable and nontoxic-appearing upon arrival, afebrile. Differential diagnosis includes stroke, neuropathy among others. Workup will be conducted with hematologic labs, specific imaging. Discussed workup with Dr. Fischer who agrees with workup plan Initial workup reviewed by me hematologic labs are remarkable for nothing acute. Imaging informally interpreted by me and remarkable for no acute stroke. Please see radiology report for official read. Upon repeat evaluation patient's pain is improved. Patient is doing well. She is happy to follow-up with her neurologist outpatient. Patient is safe for discharge home. Critical Care Critical Care Time Critical Care Time: No
[2024-10-07 20:20] LABS: Basophils % 0.6 % (0.1-2.0); Eosinophils # 0.4 Kmm3 (0.0-0.4); Eosinophils % 5.9 % (0.1-12.0); Hematocrit 43.9 % (37.0-47.0); Hemoglobin 14.6 g/dL (12.2-16.2); Immature Granulocytes # 0.02 10^3uL; Immature Granulocytes % 0.3 %; Lymphocytes # 2.5 K/mm3 (0.7-4.5); Mean Corpuscular HGB Conc 33.3 g/dL (31.8-35.4); Mean Corpuscular Hemoglobin 28.4 pg (27.0-31.2); Mean Corpuscular Volume 85.4 fl (81-99); Mean Platelet Volume 11.1 fl (7.4-10.4); Monocytes # 0.4 K/mm3 (0.1-1.0); Monocytes % 6.1 % (1.7-9.3); Neutrophils # 3.9 K/mm3 (1.8-7.8); Neutrophils % 53.1 % (37.0-80.0); Nucleated Red Blood Cells # 0 10^3/uL; Nucleated Red Blood Cells % 0 %; Platelet Count 285 K/mm3 (142-424); Red Blood Count 5.14 M/mm3 (4.20-5.40); Red Cell Distribution Width 13.6 % (11.5-17.5); Red Cell Distribution Width-SD 42.2 fL; White Blood Count 7.3 K/mm3 (4.8-10.8)
--- NOTE | 2024-10-07 20:20 | CT_ITS ---
PROCEDURE INFORMATION: Exam: CTA Neck With Contrast Exam date and time: 10/07/2024 9:07 PM Age: 54 years old Clinical indication: Other: Possible stroke TECHNIQUE: Imaging protocol: Computed tomographic angiography of the neck with contrast. Exam focused on the cervical segments of the vasculature. 3D rendering (Not supervised by radiologist): MIP and/or 3D reconstructed images were created by the technologist. Radiation optimization: All CT scans at this facility use at least one of these dose optimization techniques: automated exposure control; mA and/or kV adjustment per patient size (includes targeted exams where dose is matched to clinical indication); or iterative reconstruction. Contrast material: ISO 370; Contrast volume: 80 ml; Contrast route: INTRAVENOUS (IV); COMPARISON: CT ANGIO NECK 09/04/2023 8:46 PM FINDINGS: Right common carotid artery: No stenosis. No dissection or occlusion. Right internal carotid artery: Smooth noncalcified plaque produces mild stenosis of the origin of the right ICA. Right external carotid artery: No occlusion or stenosis of the origin. Left common carotid artery: No stenosis. No dissection or occlusion. Left internal carotid artery: Partially calcified plaque produces mild stenosis of the origin of the left ICA. Left external carotid artery: No occlusion or stenosis of the origin. Right vertebral artery: No stenosis. No dissection or occlusion. 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 Left vertebral artery: No stenosis. No dissection or occlusion. Soft tissues: Normal. No significant soft tissue swelling. Bones/joints: Moderate degenerative changes throughout the cervical spine. No acute fracture or subluxation. IMPRESSION: 1. Mild bilateral ICA stenosis. 2. Patent bilateral vertebral arteries 3. Degenerative changes of the cervical spine. REFERENCES: NASCET CRITERIA. The degree of stenosis in the cervical segment of the internal carotid artery is based on NASCET criteria. Normal is no stenosis. Mild is less than 50% stenosis. Moderate is 50-69% stenosis. Severe is 70% to 99% stenosis. Total occlusion is no detectable patent lumen.
--- NOTE | 2024-10-07 20:20 | CT_ITS ---
PROCEDURE INFORMATION: Exam: CTA Head With Contrast, Arteriography Exam date and time: 10/07/2024 9:07 PM Age: 54 years old Clinical indication: Other: Possible stroke TECHNIQUE: Imaging protocol: Computed tomographic angiography of the head with contrast. Exam focused on the arteries. 3D rendering (Not supervised by radiologist): MIP and/or 3D reconstructed images were created by the technologist. Radiation optimization: All CT scans at this facility use at least one of these dose optimization techniques: automated exposure control; mA and/or kV adjustment per patient size (includes targeted exams where dose is matched to clinical indication); or iterative reconstruction. Contrast material: ISO 370; Contrast volume: 80 ml; Contrast route: INTRAVENOUS (IV); COMPARISON: CT ANGIO HEAD 09/04/2023 8:46 PM FINDINGS: ANTERIOR CIRCULATION: Right internal carotid artery: Atherosclerotic calcification produces mild diffuse stenosis of the right carotid siphon. Right middle cerebral artery: No occlusion or significant stenosis. No aneurysm. Right anterior cerebral artery: No occlusion or significant stenosis. No aneurysm. Left internal carotid artery: Atherosclerotic calcification produces mild diffuse stenosis of the left carotid siphon. Left middle cerebral artery: No occlusion or significant stenosis. No aneurysm. Left anterior cerebral artery: No occlusion or significant stenosis. No aneurysm. POSTERIOR CIRCULATION: Right vertebral artery: No occlusion or significant stenosis. No aneurysm. Left vertebral artery: No occlusion or significant stenosis. No aneurysm. Basilar artery: Atherosclerotic calcification produces mild diffuse stenosis of the basilar artery. No occlusion. Right posterior cerebral artery: No occlusion or significant stenosis. No aneurysm. Left posterior cerebral artery: No occlusion or significant stenosis. No aneurysm. Brain: No intracranial mass, hemorrhage or evidence of acute ischemia. Chronic findings as previously described. Cerebral ventricles: No ventriculomegaly. Bones/joints: Unremarkable. No acute fracture. Soft tissues: Unremarkable. 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 No other significant large vessel intracranial stenosis or occlusion. No acute intracranial abnormality.
[2024-10-07 20:27] LABS: Activated Partial Thrombo Time 26.3 seconds (22.8-30.6); Alanine Aminotransferase 34 U/L (12-78); Albumin Level 4.7 g/dl (3.5-5.0); Albumin/Globulin Ratio 1.4 (1.1-1.8); Alkaline Phosphatase 97 U/L (38-126); Anion Gap 11.9 mEq/L (5-15); Aspartate Amino Transferase 47 U/L (14-36); Bilirubin,Total 0.7 mg/dl (0.2-1.3); Blood Urea Nitrogen 25 mg/dl (7-17); Calcium 10.1 mg/dl (8.4-10.2); Carbon Dioxide 25 mmol/L (22.0-30.0); Chloride 107 mmol/L (98-107); Creatinine Clearance Estimated 82 mL/min (50-200); Estimated Glomerular Filt Rate 65 ml/min (>60); GFR (African American) 78 ML/MIN (>60); Globulin 3.4 g/dL (1.3-3.2); Glucose 120 mg/dl (74-100); INR 0.95 (0.9-1.1); Lipase 379 U/L (23-300); Magnesium 1.8 mg/dl (1.6-2.3); Potassium 3.9 mmoL/L (3.5-5.1); Prothrombin Time 10.6 seconds (10.1-12.5); Sodium 140 mmol/L (136-145); Total Protein,Serum 8.1 g/dl (6.3-8.2)
[2024-10-07 20:30] VITALS: BP 139/85; PULSE 93; RESP 19; O2SAT 91
[2024-10-07 20:43] LABS: Troponin I < 0.01 ng/ml (0.00-0.034)
[2024-10-07] MEDS: SODIUM CHLORIDE 0.9% 10ML SYR (RAD ONLY) 10 ML IV (21:08)
[2024-10-07] MEDS: IOPAMIDOL-370 (76%);100ML BOTTLE 80 ML IV (21:08)
[2024-10-07] MEDS: 0.9 % SODIUM CHLORIDE 50 ML VIAL IV (21:08)
[2024-10-07 21:41] VITALS: BP 142/86; PULSE 86; RESP 14; TEMP 36.6; O2SAT 96
== END 2024-10-07 21:47 | disposition home or self-care (01) ==
LOC: ER 19:39
PROVIDERS: Nurse Practitioner; Emergency Provider Student in an Organized Health Care Education/Training Program; PCP Nurse Practitioner
DX: R20.2 Paresthesia of skin (principal); E11.40 Type 2 diabetes mellitus with diabetic neuropathy, unspecified; I10 Essential (primary) hypertension; Z86.73 Personal history of transient ischemic attack (TIA), and cerebral infarction without residual deficits
CPT/HCPCS: 70450; 70496; 70498; 80053; 83690; 83735; 84484; 85025; 85610; 85730; 93005; 99285; Q9967

== ENCOUNTER 2024-10-10 09:39 | Outpatient (CLI) | payer BC, SELFPAY ==
--- OUTSIDE RECORDS SUMMARY | 2024-10-10 09:43 | XMS_ITS | Clinical Summary ---
Author Organization [facility] Address [address] 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 or baptism services? More than 4 times per year 09/08/2023 Do you belong to any clubs o r organizations such as sikh groups, unions, fraternal or athletic groups, or [...] more drinks on one occasion? Never 09/08/2023 [facility] - [facility] [...] place to sleep or slept in a halfway (including now)? No 09/07/2023 CAGE ASSESSMENT Answer [...] drink first t rupesh in the morning (EYE-DIRECTOR OF VITAL STATISTICS) to steady your nerves or to get [...] Date Last Done Comments [facility]-Depression Screening 1970 [facility]-/Child/Adol SDOH Screenings 1970 [facility]- SDOH Screenings 01/28/1986 [...] 01/28/2018 [facility]-Zoster Vaccines (1 of 2) 01/28/2018 [id number] Vaccine (2 - Shane risk series) 09/04/2020 [...] Reactive Non Reactive 09/05/2023 6:49 AM EDT [facility] Comment:Screening for HIV 1 & 2 antibodies, and P24 antigen is NONREACTIVE. No confirmatory testing is required. Blood Venous blood specimen / Unknown Venipuncture / Unknown 09/05/2023 5:47 AM EDT 09/05/2023 6:08 AM EDT Issa Mccracken MD LAB BLOOD ORDERABLES Final Result [facility] [address] [place] [address] * Hepatitis C Antibody - ED (09/05/2023 5:47 AM EDT) Hepatitis C Antibody Negative Negative 09/05/2023 6:50 AM EDT HEALTHCARE LAB Blood Venous blood specimen / Unknown Venipuncture / Unknown 09/05/2023 5:47 AM EDT 09/05/2023 6:08 AM EDT us Issa Mccracken MD LAB BLOOD ORDERABLES Final Result Performing Organization Address [facility] Co de Phone Number [facility] [address] [place] [address] * (ABNORMAL) Hemoglobin A1c (09/05/2023 5:47 AM EDT) Hemoglobin A1c 6.4(H) <5.7 % 09/05/2023 8:01 AM EDT [facility] Blood Venous blood specimen / [...] Adults <6.0% Children and Adolescents <7.5% Source: [place] [employer]. Standards of medical care in diabetes,2017. Diabetes Care.2017:40 (suppl 1):S1-S135. HbA1c assay performed by an ion-exchange chromatography method that is certified traceable to the DCCT. us Mushtaq Irene MD LAB BLOOD ORDERABLES Final Re sult Performing Organization Address City/[facility]/ZIP Co de Phone Number [facility] [address] [place] [address] * Cytology (03/14/2009 12:00 AM EST) Cerebrospinal fluid specimen (specimen) 03/14/2009 03/15/2009 9 :26 AM EST Narrative SUNQUEST - 03/18/2009 11:22 AM EST [facility] MR #: [id number] [facility] [place] [id number] 1970 (Age: 39) FW Collect Date: 03/14/2009 00:00 Receipt Date: 03/15/2009 09:26 Page 1 DEPARTMENT OF PATHOLOGY AND LABORATORY MEDICINE CYTOPATHOLOGY REPORT Email: [email or web address] [id number] ATTENDING MD/Practitioner: Harjinder Curran MD Service: NANCY Location: 8S OTHER MD(S): Wallace Dhillon MD Reported: 03/18/2009 11:22 Collected: 03/14/2009 00:00 DIAGNOSIS A. CEREBROSPINAL FLUID: NO EVIDENCE OF MALIGNANCY. Electronically Signed Out FRANCES Cabrera(ASCP) Clement Sosa M.D. PROCEDURES/ADDENDA GROSS DESCRIPTION: 7 ml's clear fluid. CLINICAL INFORMATION: CLINICAL DIAGNOSIS Vasculitis SPECIMEN DESCRIPTION: A: CEREBROSPINAL FLUID CYTOSPIN x 2 ICD: 447.6 ARTERITIS NOS (VASCULITIS, NOS) F: [id number] EXVA/PAPI SNOMED CODES: A; [id number] A resident has participated in this service. [...] Patient has decision-making capacity? Yes Care Teams Seasonal Warehouse Associate Relationship Specialty Start Date End Date Melissa Friend APRN [address] [place] [address] PCP - General 09/05/23
--- OUTSIDE RECORDS SUMMARY | 2024-10-10 09:43 | XMS_ITS | Clinical Summary ---
Author Organization [facility] Address [address] [place] [id number] Care Team Providers Care Photo Producer Name Role Phone Melissa Friend INFECTION CONTROL SPECIALIST Primary Care Provider [phone] Source Comments This information has been disclosed [...] therelease of HIV test results or diagnoses. [id number] Health Allergies Active Allergy Reactions Criticality Noted [...] 12/27/19 24 Insurance BLUE ACCESS Care Teams Photo Producer Relationship Specialty Start Date End Date Melissa Friend NP [address] [place] [address] [facility] [address] [place] [address] PCP - General 10/11/23
[2024-10-10 10:52] LABS: Free T4 (Free Thyroxine) 0.88 ng/dl (0.78-2.19)
[2024-10-10 13:55] LABS: Thyroid Stimulating Hormone 0.77 uIU/mL (0.465-4.68)
== END 2024-10-10 23:59 | disposition home or self-care (01) ==
LOC: LAB 09:40
PROVIDERS: PCP Nurse Practitioner; Visit Provider Internal Medicine Endocrinology, Diabetes & Metabolism
DX: E03.9 Hypothyroidism, unspecified (principal); E66.812 Obesity, class 2; E66.01 Morbid (severe) obesity due to excess calories; Z68.35 Body mass index [BMI] 35.0-35.9, adult
CPT/HCPCS: 36415; 82533; 84439; 84443

== ENCOUNTER 2024-11-23 12:01 | Outpatient (CLI) | payer BC, SELFPAY ==
--- OUTSIDE RECORDS SUMMARY | 2024-10-05 12:45 | XMS_ITS | Encounter Summary ---
[facility] Address [address] [place] [address] Care Team Providers Care Windows Desktop Support Name Role Phone Melissa Friend LOADING MANAGER Primary Care Provider Reason for Visit * Reason Comments Hypothyroidism * Consultation (Routine) - Pending Review Specialty Diagnoses / Procedures Referred By Contac t Referred To Contact Endocrinology Diagnoses Hypothyroidism Melissa Friend, LOADING MANAGER [address] [place] [address] Phone: tel: fax: Kareen Batista, [address] [place] [address] Phone: tel: fax: Referral ID Status Reason Start Date Expiration Date V isits Requested Visits Authorized [id number] Pending Review 06/19/2024 06/19/2025 1 1 Encounter Details Date Type Department Care Team (Late st Contact Info) Description 10/05/2024 12:45 PM EDT Office Visit [facility] END[facility] [address] [place] [address] Kareen Batista, DO [address] [place], [place] [id number] Acquired hypothyroidism (Primary Dx); Class 1 obesity with serious comorbidity and body mass index (BMI) of 33.0 to 33.9 in adult, unspecified obesity type Social History Tobacco Use Types Packs/Day Years Used Date Smoking Tobacco: Former Cigarettes Smokeless Tobacco: Current Tobacco Cessation:Ready to Q uit: Not Asked; Counseling Given: Not Answered Alcohol Use Standard Drinks/Week Comments Not Currently 0 (1 standard drink = 0.6 oz pur e alcohol) Comments Unknown Sex and Gender Information Value Date Recorded Sex Assigned at Not on file Legal Sex Female 3:02 PM EST Gender Identity Not on file Sexual Orientation Not on file documented as of this encounter Last Filed Vital Signs Vital Sign Reading Time Taken Comments Blood Pressure 132/88 10/05/2024 1:00 PM EDT Pulse 100 10/05/2024 1:00 PM EDT Temperature - - Respiratory Rate - - Oxygen Saturation 97% 10/05/2024 1:00 PM EDT Inhaled Oxygen Concentration - - Weight 76.7 kg (169 lb) 10/05/2024 1:00 PM EDT Height 152.4 cm (5') 10/05/2024 1:00 PM EDT Body Mass Index 33.01 10/05/2024 1:00 PM EDT documented in this encounter Progress Notes * Kareen Batista DO - 10/05/2024 1:04 PM EDTAssociated Problem(s): Obesity with serious comorbidity Central adiposity with thin arms/legs. No other s/s of cushings. Screen for Damian's with dexamethasone suppression test. * Kareen Batista DO - 10/05/2024 1:04 PM EDTAssociated Problem(s): Acquired hypothyroidism On levothyroxine 50 mcg daily. Last TFTs from June normal, T4 was low normal range. With constipation and mild fatigue. Takes with all other meds in the morning. Recheck TFTs and titrate levothyroxine if able for TSH in the mid to lower range of normal. * Kareen Batista DO - 10/05/2024 12:45 PM EDT Chief Complaint Patient presents with Hypothyroidism Referring Provider Melissa Friend APRN HPI Elenita Wild is a 54 y.o. female had concerns including Hypothyroidism. New patient referred by PCP for hypothyroidism. She is on levothyroxine 50 mcg daily. TFTs from June 2024 were in normal range. T4 low normal. Diagnosed 7/8 years ago. No recent dose changes. In the past (about two years ago) up to 88 mcg dose and TSH became suppressed. Takes the levothyroxine in the morning with all other meds. Eats 15-45 min after taking the med. Nocoffee. Denies missed doses. Notes constipation. Energy is ok. Daughter is concerned she may need a dose reduction but no s/s of hyperthyroidism. PCPs note mentions some question of Argyle's syndrome. She has not had evaluation for this. She has a history of TIA. Concern due to weight distribution centrally with thin arms/legs. This body habitus does not run inthe family. . No stretch gill or easy bruising. Has difficulty losing weight. Weight has been stable. Efforts to lose weight not successful. Was seen a few months ago for possible TIA but diagnosed with seizures. Stroke was 2008. Sleeps lots. Has LYLE and using CPAP. Past Medical History: Diagnosis Date Hyperlipidemia Hypertension Hypothyroidism LYLE on CPAP Stroke Type 2 diabetes mellitus Past Surgical History: Procedure Laterality Date CHOLECYSTECTOMY N/A RENAL ARTERY STENT N/A Plus occipital stent Family History Problem Relation Age of Onset Hypertension Mother Diabetes Mother Cancer Mother Stroke Mother Stroke Father Cancer Father Alzheimer's disease Father Heart disease Brother Social History Socioeconomic History Marital status: Tobacco Use Smoking status: Former Types: Cigarettes Smokeless tobacco: Current Vaping Use Vaping status: Never Used Substance and Sexual Activity Alcohol use: Not Currently Drug use: Never Sexual activity: Defer Allergies Allergen Reactions Levaquin [Levofloxacin] Itching Very severe itching Current Outpatient Medications on File Prior to Visit Medication Sig Dispense Refill aspirin 81 MG chewable tablet Chew 1 tablet Daily. atenolol (TENORMIN) 50 MG tablet Take 1 tablet by mouth Daily. atorvastatin (LIPITOR) 80 MG tablet Take 1 tablet by mouth Every Night. cyclobenzaprine (FLEXERIL) 10 MG tablet Take 1 tablet by mouth 3 (Three) Times a Day As Needed for Muscle Spasms. DULoxetine (CYMBALTA) 60 MG capsule Take 1 capsule by mouth Daily. gemfibrozil (LOPID) 600 MG tablet Take 1 tablet by mouth 2 (Two) Times a Day. levETIRAcetam (KEPPRA) 750 MG tablet Take 1 tablet by mouth 2 (Two) Times a Day. levothyroxine (SYNTHROID, LEVOTHROID) 50 MCG tablet Take 1 tablet by mouth Daily. loratadine (CLARITIN) 10 MG tablet Take 1 tablet by mouth Daily. metFORMIN (GLUCOPHAGE) 500 MG tablet Take 1 tablet by mouth 2 (Two) Times a Day With Meals. Ozempic, 1 MG/DOSE, 4 MG/3ML solution pen-injector Inject 1 mg under the skin into the appropriate area as directed 1 (One) Time Per Week. pregabalin (LYRICA) 100 MG capsule Take 1 capsule by mouth Daily. rimegepant sulfate ODT (NURTEC-ODT) 75 MG disintegrating tablet Take 1 tablet by mouth Daily As Needed. topiramate (TOPAMAX) 25 MG tablet Take 1 tablet by mouth 2 (Two) Times a Day. No current facility-administered medications on file prior to visit. Review of Systems Constitutional: Negative. HENT: Negative. Eyes: Negative. Respiratory: Negative. Cardiovascular: Negative. Gastrointestinal: Positive for constipation. Endocrine: Negative. Genitourinary: Negative. Musculoskeletal: Negative. Skin: Negative. Allergic/Immunologic: Positive for environmental allergies. Neurological: Positive for headache. Hematological: Negative. Psychiatric/Behavioral: Negative. BP 132/88 (BP Location: Left arm, Patient Position: Sitting, Cuff Size: Adult) Pulse 100 Ht 152.4 cm (60 ) Wt 76.7 kg (169 lb) SpO2 97% BMI 33.01 kg/m?? Physical Exam Constitutional: well developed; well nourished no acute distress obese - Body mass index is 33.01 kg/m??. Central adiposity, thin arms/legs No significant facial plethora ENT/Thyroid: no thyromegaly no palpable nodules Eyes: EOM intact Conjunctiva: clear Respiratory: breathing is unlabored clear to auscultation bilaterally Cardiovascular: regular rate and rhythm, S1, S2 normal, no murmur, click, rub or gallop Chest: Not performed. Abdomen: Not performed. No striae. : Not performed. Musculoskeletal: negative findings: ROM of all joints is normal, no deformities present, no buffalohump Skin: dry and warm Neuro: normal without focal findings and mental status, speech normal, alert and oriented x3 Psych: oriented to time, place and person, mood and affect are within normal limits Labs/Imaging CBC w/DIFF Lab Results Component Value Date WBC 6.26 09/05/2023 RBC 4.84 09/05/2023 HGB 13.7 09/05/2023 HCT 41.5 09/05/2023 MCV 86 09/05/2023 MCH 28.3 09/05/2023 MCHC 33 09/05/2023 RDW 13.4 09/05/2023 MPV 10.7 09/05/2023 PLT 249 09/05/2023 NEUTRORELPCT 40 09/05/2023 LYMPHORELPCT 50 09/05/2023 MONORELPCT 5 09/05/2023 EOSRELPCT 4 09/05/2023 BASORELPCT 1 09/05/2023 AUTOIGPER 0 09/05/2023 NEUTROABS 2.14 09/05/2023 LYMPHSABS 2.6 09/05/2023 MONOSABS 0.27 (L) 09/05/2023 EOSABS 0.23 09/05/2023 BASOSABS 0.04 09/05/2023 AUTOIGNUM 0.02 09/05/2023 NRBC 0 09/05/2023 06/14/2024 CBC with WBC 12.2, hemoglobin hematocrit normal, TSH 2.33, creatinine 0.9, GFR 65, glucose 106, AST 43 with upper limit 36, ALT and alkaline phosphatase normal, total cholesterol 124, LDL 51.6, triglyceride 86, HDL 43, A1c 5.9, vitamin D 34.2, free T4 0.94, normal Assessment and Plan Diagnoses and all orders for this visit: 1. Acquired hypothyroidism (Primary) Assessment & Plan: On levothyroxine 50 mcg daily. Last TFTs from June normal, T4 was low normal range. With constipation and mild fatigue. Takes with all other meds in the morning. Recheck TFTs and titrate levothyroxine if able for TSH in the mid to lower range of normal. Orders: - T4, Free; Future - TSH; Future 2. Class 1 obesity with serious comorbidity and body mass index (BMI) of 33.0 to 33.9 in adult, unspecified obesity type Assessment & Plan: Central adiposity with thin arms/legs. No other s/s of cushings. Screen for Damian's with dexamethasone suppression test. Orders: - Cortisol - AM; Future - dexAMETHasone (DECADRON) 1 MG tablet; Take 1 tablet by mouth 1 (One) Time for 1 dose. At 11 pm the night before the dexamethasone suppression test Dispense: 1 tablet; Refill: 0 Return in about 6 months (around 04/06/2025) for next scheduled follow up. The patient was instructed to contact the clinic with any interval questions or concerns. Electronically signed by: Kareen Batista DO Crab Picker Please note that portions of this note were completed with a voice recognition program. documented in this encounter Plan of Treatment Upcoming Encounters Date Type Department Care Team (Late st Contact Info) Description 04/18/2025 3:30 PM EST Office Visit [facility] [address] [facility] [address] [place] [id number] Kareen Batista DO [address] [place] [address] Scheduled Orders Name Type Priority Associated Diagnoses Orde r Schedule TSH Lab Routine Acquired hypothyroidism Expected: 10/06/2024 (Approximate), Expires: 10/05/2025 documented as of this encounter Results * Cortisol - AM (11/10/2024 9:06 AM EDT) Blood Kareen Clark Pacitti DO LAB BLOOD ORDERABLES Alee l Result Performing Organization Address [facility] Co de Phone Number [facility]
[address] [place] [address], * T4, Free (11/10/2024 9:06 AM EDT) Blood Kareen Clark Pacitti DO LAB BLOOD ORDERABLES Alee l Result Performing Organization Address [facility] de Phone Number [facility]
[address] [place] [address], documented in this encounter Visit Diagnoses Diagnosis Acquired hypothyroidism- Primary Unspecified hypothyroidism Class 1 obesity with serious comorbidity and body mass index (BMI) of 33.0 to 33.9 in adult, unspecified obesity type documented in this encounter Care Teams Windows Desktop Support Relationship Specialty Start Date End Date Melissa Friend APRN [address] [place] [address] PCP - General Nurse Practitioner 07/12/24 documented as of this encounter
--- OUTSIDE RECORDS SUMMARY | 2024-11-27 12:04 | XMS_ITS | Clinical Summary ---
Author Organization [facility] Address [address] [place] [address] Care Team Providers Care Loom Fixer Apprentice Name Role Phone Melissa Friend FENCE POST DRIVER Primary Care Provider [phone] Source Comments This information has been disclosed [...] therelease of HIV test results or diagnoses. [id number] Health Allergies Active Allergy Reactions [...] season) 2024 08/07/2020 Immunization: Influenza (MyC pierson) (#1) 2025 02/25/2023, 03/10/2022, 02/20/2021, Additional history exists Depression Screening 01/22/2025 01/23/2024, 12/27/19 24 Insurance BLUE ACCESS [facility] Address: [place] [address] Care Teams Loom Fixer Apprentice Relationship Specialty Start Date End Date Melissa Friend NP [address] [place] [address] [facility] [address] [place] [address] PCP - General 10/11/23
--- OUTSIDE RECORDS SUMMARY | 2024-11-27 12:04 | XMS_ITS | Clinical Summary ---
Author Organization [facility] Address [address] [place] [address] Care Team Providers Care Staffing Administrator Name Role Phone Melissa Friend APRN Primary Care Provider [phone] Allergies Active Allergy Reactions Criticality Noted Date [...] 3 months w/ EEG Chronic ischemic left GASTROENTEROLOGY MANAGER stroke 09/05/2023 Resolved Problems Problem Noted Date [...] week 09/08/2023 How often do you attend [facility] or adventism services? More than 4 times per year 09/08/2023 Do you belong to any clubs o r organizations such as restorationist groups, unions, fraternal or athletic groups, or [...] more drinks on one occasion? Never 09/08/2023 [facility] - Occupational Stress [...] place to sleep or slept in a usp (including now)? No 09/07/2023 CAGE ASSESSMENT Answer [...] drink first t rupesh in the morning (E[employer]-TE[employer]ER EARLY CHILDHOOD DEVELOPMENT) to steady your nerves or to get [...] 01/28/2018 [facility]-Zoster Vaccines (1 of 2) 01/28/2018 [id number]-[id number] Vaccine (2 - Shane risk series) 09/04/2020 08/07/2020 [facility]-Pneumococcal Vaccine: 50+ Years (2 of 2 - PCV) 09/04/2021 09/04/2020 [facility]-Influenza Vaccine (#1) 01/01/202502/25, 03/10/2022, 02/20/2021, Additional history exists [facility]-Hepatitis A [...] Reactive Non Reactive 09/05/2023 6:49 AM EDT [facility] Comment:Screening for HIV 1 & 2 antibodies, and P24 antigen is NONREACTIVE. No confirmatory testing is required. Blood Venous blood specimen / Unknown Venipuncture / Unknown 09/05/2023 5:47 AM EDT 09/05/2023 6:08 AM EDT Issa Mccracken MD LAB BLOOD ORDERABLES Final Result [facility] [address] [place] [address] * Hepatitis C Antibody - ED (09/05/2023 5:47 AM EDT) Hepatitis C Antibody Negative Negative 09/05/2023 6:50 AM EDT HEALTH[facility]ARE [facility] Blood Venous blood specimen / Unknown Venipuncture / Unknown 09/05/2023 5:47 AM EDT 09/05/2023 6:08 AM EDT us Issa Mccracken MD LAB BLOOD ORDERABLES Final Result Performing Organization Address [facility] Co de Phone Number [facility] [address] [place] [address] * (ABNORMAL) Hemoglobin A1c (09/05/2023 5:47 AM EDT) Hemoglobin A1c 6.4(H) <5.7 % 09/05/2023 8:01 AM EDT [facility] Blood Venous blood specimen / Unknown [...] Adults <6.0% Children and Adolescents <7.5% Source: [place] [employer]. Standards of medical care in diabetes,2017. Diabetes Care.2017:40 (suppl 1):S1-S135. HbA1c assay performed by an ion-exchange chromatography method that is certified traceable to the DCCT. us Mushtaq Irene MD LAB BLOOD ORDERABLES Final Re sult Performing Organization Address City/[facility]/ZIP Co de Phone Number [facility] [address] [place] [address] * Cytology (03/14/2009 12:00 AM EST) Cerebrospinal fluid specimen (specimen) 03/14/2009 03/15/2009 9 :26 AM EST Narrative SUNQUEST - 03/18/2009 11:22 AM EST [facility] MR #: [id number] [facility] [place] [id number] 1970 (Age: 39) FW Collect Date: 03/14/2009 00:00 Receipt Date: 03/15/2009 09:26 Page 1 DEPARTMENT OF PATHOLOGY AND LABORATORY MEDICINE CYTOPATHOLOGY REPORT Email: [email or web address] [phone] ATTENDING MD/Practitioner: Harjinder Curran MD Service: NANCY Location: 8S OTHER MD(S): Wallace Dhillon MD Reported: 03/18/2009 11:22 Collected: 03/14/2009 00:00 DIAGNOSIS A. CEREBROSPINAL FLUID: NO EVIDENCE OF MALIGNANCY. Electronically Signed Out FRANCES Cabrera(ASCP) Clement Sosa M.D. PROCEDURES/ADDENDA GROSS DESCRIPTION: 7 ml's clear fluid. CLINICAL INFORMATION: CLINICAL DIAGNOSIS Vasculitis SPECIMEN DESCRIPTION: A: CEREBROSPINAL FLUID CYTOSPIN x 2 ICD: 447.6 ARTERITIS NOS (VASCULITIS, NOS) F: [id number] EXVA/PAPI SNOMED CODES: A; [id number] A resident has participated in this service. [...] Patient has decision-making capacity? Yes Care Teams Staffing Administrator Relationship Specialty Start Date End Date Melissa Friend APRN [address] [place] [address] PCP - General 09/05/23
--- OUTSIDE RECORDS SUMMARY | 2024-11-27 12:04 | XMS_ITS | Encounter Summary ---
Author Organization [facility] Address [address] [place] [address] Care Team Providers Care Wardrobe Stylist Name Role Phone PhucMelissa jerez Rosa KWON Primary Care Provider [phone] Encounter Details Date Type Department Care Team (Late st Contact Info) Description 11/13/2024 Results Follow-Up [facility] [address] [place] [address] Kareen Batista DO [address] [place], [place] [id number] Social History Tobacco Use Types Packs/Day Years Used Date Smoking Tobacco: Former Cigarettes Smokeless Tobacco: Current Alcohol Use Standard Drinks/Week Comments Not Currently 0 (1 standard drink = 0.6 oz pur e alcohol) Comments Unknown Sex and Gender Information Value Date Recorded Sex Assigned at Not on file Legal Sex Female 3:02 PM EST Gender Identity Not on file Sexual Orientation Not on file documented as of this encounter Plan of Treatment Upcoming Encounters Date Type Department Care Team (Late st Contact Info) Description 04/18/2025 3:30 PM EST Office Visit [facility] [address] [place] [address] Kareen Batista DO [address] [place] [address] documented as of this encounter Visit Diagnoses Not on filedocumented in this encounter Care Teams Wardrobe Stylist Relationship Specialty Start Date End Date Melissa Friend APRN [address] [facility] [place] [address] PCP - General Nurse Practitioner 07/12/24 documented as of this encounter
--- OUTSIDE RECORDS SUMMARY | 2024-11-27 12:04 | XMS_ITS | Clinical Summary ---
Author Organization [facility] Address [address] [place] [address] Care Team Providers Care General Production Worker Name Role Phone Phuc Melissa Lee APRN Primary Care Provider [phone] Allergies Active Allergy Reactions Criticality Noted Date Comments Levofloxacin Itching 10/05/2024 Very severe itching Medications aspirin 81 MG chewable tablet Chew 1 tablet Daily. Active atenolol (TENORMIN) 50 MG tablet Take 1 tablet by mouth Daily. Active atorvastatin (LIPITOR) 80 MG tablet Take 1 tablet by mouth Every Night. Active DULoxetine (CYMBALTA) 60 MG capsule Take 1 capsule by mouth Daily. Active gemfibrozil (LOPID) 600 MG tablet Take 1 tablet by mouth 2 (Two) Times a Day. Active levETIRAcetam (KEPPRA) 750 MG tablet Take 1 tablet by mouth 2 (Two) Times a Day. Active levothyroxine (SYNTHROID, LEVOTHROID) 50 MCG tablet Take 1 tablet by mouth Daily. Active loratadine (CLARITIN) 10 MG tablet Take 1 tablet by mouth Daily. Active metFORMIN (GLUCOPHAGE) 500 MG tablet Take 1 tablet by mouth 2 (Two) Times a Day With Meals. Active pregabalin (LYRICA) 100 MG capsule Take 1 capsule by mouth Daily. Active topiramate (TOPAMAX) 25 MG tablet Take 1 tablet by mouth 2 (Two) Times a Day. Active Ozempic, 1 MG/DOSE, 4 MG/3ML solution pen-injector Inject 1 mg under the skin into the appropriate area as directed 1 (One) Time Per Week. 08/31/19 25 Active rimegepant sulfate ODT (NURTEC-ODT) 75 MG disintegrating tablet Take 1 tablet by mouth Daily As Needed. Active cyclobenzaprine (FLEXERIL) 10 MG tablet Take 1 tablet by mouth 3 (Three) Times a Day As Needed for Muscle Spasms. Active Active Problems Problem Noted Date Diagnosed Date Acquired hypothyroidism 10/05/2024 Assessment & Plan (10/05/2024 1:47 PM EDT): On levothyroxine 50 mcg daily. Last TFTs from June normal, T4 was low normal range. With constipation and mild fatigue. Takes with all other meds in the morning. Recheck TFTs and titrate levothyroxine if able for TSH in the mid to lower range of normal. Obesity with serious comorbidity 10/05/2024 Assessment & Plan (10/05/2024 1:48 PM EDT): Central adiposity with thin arms/legs. No other s/s of cushings. Screen for [place]'s with dexamethasone suppression test. Stroke 10/05/2024 Seizure 10/05/2024 Essential hypertension 10/05/2024 Mixed hyperlipidemia 10/05/2024 LYLE on CPAP 10/05/2024 Encounters Date Type Department Care Team Description 11/13/2024 Results Follow-Up [facility] [address] [place] [address] Kareen Batista, 11/09/[address] [facility] [address] [place] [address] Kareen Batista, DO Results 10/30/[address] [facility] [address] [place] [address] Kareen Batista, 10/30/[address] [facility] [address] [place] [address] Kareen Batista DO 10/05/2024 12:45 PM EDT Office Visit [facility] [address] [place] [address] Kareen Batista DO Acquired hypothyroidism (Primary Dx); Class 1 obesity with serious comorbidity and body mass index (BMI) of 33.0 to 33.9 in adult, unspecified obesity type 10/05/2024 Travel from Last 3 Months Family History Medical History Relation Name Comments Heart disease Brother Alzheimer's disease Father Cancer Father Stroke Father Cancer Mother Diabetes Mother Hypertension Mother Stroke Mother Relation Name Status Comments Brother Alive Father Mother Alive Social History Tobacco Use Types Packs/Day Years [...] Mass Index 33.01 10/05/2024 1:00 PM EDT Plan of Treatment Upcoming Encounters Date Type Department Care Team (Late st Contact Info) Description 04/18/2025 3:30 PM EST Office Visit [facility] [address] [place] [address] Kareen Batista DO [address] [place] [address] Health Maintenance Due Date Last Done Comments Annual Gynecologic Pelvic an d Breast Exam 1970 PAP SMEAR 01/28/1989 TDAP/TD VACCINES (2 - Tdap) 07/06/2006 07/06/1996 MAMMOGRAM 2008 COLOGUARD 01/28/2013 COLON CANCER SCREENING 5 YEA R SIGMOIDOSCOPY 01/28/2013 COLONOSCOPY 01/28/2013 COLORECTAL CANCER SCREENING 01/28/2013 CT COLONOGRAPHY 01/28/2013 FECAL OCCULT BLOOD TEST 01/28/2013 FIT Testing (1 year) 01/28/2013 ZOSTER VACCINE (1 of 2) 01/28/2018 Pneumococcal Vaccine 50+ (2 of 2 - PCV) 09/04/2021 09/04/2020 COVID-19 Vaccine (2 - 2023-2 5 season) 2024 08/07/2020 LIPID PANEL 09/04/2024 09/05/2023 ANNUAL PHYSICAL 10/05/2024 INFLUENZA VACCINE 01/31/2025 03/08/2024, , 03/10/2022, Additional history exists HEPATITIS C SCREENING Completed 09/05/2023 Procedures Procedure Name Priority Date/Time Associated Diagnosis Comments T4, FREE Routine 11/10/2024 9:06 AM EDT Acquired hypothyroidism CORTISOL - AM Routine 11/10/2024 9:06 AM EDT Class 1 obesity with serious comorbidity and body mass index (BMI) of 33.0 to 33.9 in adult, unspecified obesity type SCANNED - LABS 10/10/2024 from Last 3 Months Results * Cortisol - AM (11/10/2024 9:06 AM EDT) Blood Kareen Batista DO LAB BLOOD ORDERABLES Alee elkins Result [facility]
[address] [place] [address], [place] [phone] * T4, Free (11/10/2024 9:06 AM EDT) Blood Kareen Craft Pacitti DO LAB BLOOD ORDERABLES Alee l Result [facility]
[address] [place] [address], * LABS SCANNED (10/10/2024) Kareen Clark Pacitti DO LAB BLOOD ORDERABLES Alee l Result from Last 3 Months Insurance [employer] PPO Member Subscriber Plan / Payer (Ef fective 2020-Present) Name:Elenita Wild Relation to Subscriber:Spouse Name:HUSSAIN WLID Date of :1961 (Home) Address: [address] [place] [address] Payer ID:[id number] (NAIC) Type:Not on file Address: [address] [employer] [facility] PPO Care Teams General Production Worker Relationship Specialty Start Date End Date Melissa Friend APRN [address] [facility] [address] [place] [address] PCP - General Nurse Practitioner 07/12/24
--- OUTSIDE RECORDS SUMMARY | 2024-11-27 12:04 | XMS_ITS | Data Portability ---
Author Organization [facility]ATH[facility] BARRIE [place] CLOS[place] Address [address] [facility] [address] [place] [address] Care Team Providers Care Quarryman Name Role Phone MILAGROS JOSÉ Primary Care [...] prevention. Will try to get records from [facility] on the or CTA done in the last 2 years - may need referral to vascular surgery FU with the neurologist in [email or web address] Not available 02/04/2023 15:54:03 Plan of Treatment Reminders Order Date Submit Date Provider Last Modified By Organization Details Last Modified Time Details Appointments None recorded. Lab glucose, fingerstic k, blood 2022 023 [facility], [facility] [place], [address], 3 15:44:42 hemoglobin A1C, fingerstic k 2022 023 [facility], [address] [place], [address], 3 15:44:42 TSH, serum or plasma 2022 023 [facility], [address] [place] [address], [address], 3 16:58:13 T4, free, serum 2022 023 [facility], [address] [place] [address], [address], 3 16:58:11 glucose, fingerstic k, blood 2022 023 [facility], [address] [place] [address], [address], 3 14:51:34 hemoglobin A1C, fingerstic k 2022 023 [facility], [address] [place] [address], [address], 3 14:51:35 microalbum in/creatin ine, mass ratio, urine 2022 023 [facility], [address] [place] [address], [address], 3 15:56:13 BMP, serum or plasma 2022 023 [facility], [address] [place] [address], [address], 3 15:55:28 TSH, serum or plasma 2022 023 [facility], [address] [place] [address], [address], 3 15:59:57 T4, free, serum 2022 023 [facility], [address] [place] [address], [address], 3 15:59:59 lipid panel, serum 2022 023 [facility], [address] [place] [address], [address], 3 15:55:30 hepatic function panel, serum 2022 023 [facility], [facility] [place], [address], 3 15:55:31 Referral sleep medicine referral 2022 023 [email or web address] 3 Jami Jacobs PA-C, [facility] [address], [address], 3 09:38:46 Procedures None recorded. Surgeries None recorded. Imaging None recorded. Medication Orders Ozempic 0.25 mg or 0.5 mg (2 mg/3 mL) subcutaneo us pen injector 2022 023 [facility], [address] [place] [address], [place], [address], 3 15:02:16 metformin ER 500 mg tablet,ext ended release 24 hr 2022 023 [facility], [address] [place] [address], [place], [address], 3 15:02:12 Patient TargetsNo targets recorded. Patient Instructions Encounter Date Encounter Id Patient Instructions Last Modified By Organization Details Last Modified Time 09/02/2016 [id number] sleep apnea: car e instructions [email or web address] Not available 09/03/2016 14:44:16 transient ischemic attack: care instructions [email or web address] Not available 09/03/2016 14:44:16 high blood pressure: care instructions [email or web address] Not available 09/03/2016 14:44:16 learning about high blood pressure Not available 09/03/2016 14:44:16 high cholesterol : care instructions [email or web address] Not available 09/03/2016 14:44:16 CC: Jeanine JoséCHER [email or web address] Not available 09/02/2016 10:38:22 02/04/2023 [id number] medical record request* [email or web address] Not available 02/11/2023 08:00:26 Reason for Referral Sleep Medicine Referral for Obstructive sleep apnea syndrome Referring Physician: Laine Hannon, Neurology, Encounter Date: 02/04/2023 Results Created Date Observation Date Name Description Value Unit Range Abnormal Flag Note LastModifiedBy Organization Detail LastModifiedTime 09/24/19 23 09/23/2022 BASIC METAB OLIC PANEL glucose 124 mg/dL 74-100 high Not Available [facility] [address] [place] [address], [address], 09/23/2022 15:55:28 09/24/19 23 09/23/2022 BASIC METAB OLIC PANEL blood urea nitrogen 25 mg/dL 6-20 high Not Available [facility] [address] [place] [address], [address], 09/23/2022 15:55:28 09/24/19 23 09/23/2022 BASIC METAB OLIC PANEL creatinine 0.77 mg/dL 0.50-0 .95 normal Not Available [facility] [address] [place] [address], [address], 09/23/2022 15:55:28 09/24/19 23 09/23/2022 BASIC METAB OLIC PANEL BUN/creatini ne ratio 32 (calc ) 10-20 high Not Available [facility] [address] [place] [address], [address], 09/23/2022 15:55:28 09/24/19 23 09/23/2022 BASIC METAB OLIC PANEL sodium 142 mmol/ L 136-14 5 normal Not Available [facility] [address] [place] [address], [address], 09/23/2022 15:55:28 09/24/19 23 09/23/2022 BASIC METAB OLIC PANEL potassium 4.5 mmol/ L 3.4-5. 0 normal Not Available [facility] [address] [place] [address], [address], 09/23/2022 15:55:28 09/24/19 23 09/23/2022 BASIC METAB OLIC PANEL chloride 104 mmol/ L 98-107 normal Not Available [facility] [address] [place] [address], [address], 09/23/2022 15:55:28 09/24/19 23 09/23/2022 BASIC METAB OLIC PANEL carbon dioxide 25 mmol/ L 22-31 normal Not Available [facility] [address] [place] [address], [address], 09/23/2022 15:55:28 09/24/19 23 09/23/2022 BASIC METAB OLIC PANEL anion gap 13 (calc ) 7-25 normal Not Available [facility] [address] [place] [address], [address], 09/23/2022 15:55:28 09/24/19 23 09/23/2022 BASIC METAB OLIC PANEL calcium 11.0 mg/dL 8.6-10 .2 high Not Available [facility] [address] [place] [address], [address], 09/23/2022 15:55:28 09/24/19 23 09/23/2022 BASIC METAB OLIC PANEL GFR 91 >= 60 normal NOT E New calcu latio n for GFR (CKD- EPI 2020) is formu lated witho ut race adjus tment facto rs at the recom menda tion of the Hodan Benavidez y Matt Zamora ty of Nephr ology . This calcu latio n has not been valid ated in pregn ant women . For pedia tric patie nts refer to https ://jose g hernandez.o rg/pr ofess ional s/KDO QI/gf r_cal culat orPed Not Available [facility] [address] [place] [address], [address], 09/23/2022 15:55:28 09/24/19 23 09/23/2022 LIPID PROFI LE HDL cholesterol 40 mg/dL 50-242 low Not Available [facility] [address] [place] [address], [address], 09/23/2022 15:55:29 09/24/19 23 09/23/2022 LIPID PROFI LE triglyceride s 183 mg/dL 0-149 high TRIGL YCERI DE RANGE S ANNA MARIE L: < 150 BORDE RLINE HIGH: 150 - 199 HIGH: 200 - 499 VERY HIGH: > OR = 500 Not Available [facility] [address] [place] [address], [address], 09/23/2022 15:55:29 09/24/19 23 09/23/2022 LIPID PROFI LE cholesterol 128 mg/dL 0-199 normal HOOD STERO L (TOTA L) RANGE S MASON ABLE: < 200 BORDE RLINE : 200 - 239 HIGHE R RISK: > 239 Not Available [facility] [address] [place] [address], [address], 09/23/2022 15:55:29 09/24/19 23 09/23/2022 LIPID PROFI LE LDL cholesterol 51 mg/dL _(carrol c) 0-99 normal LDL HOOD STERO L RANGE S OPTIM AL: < 100 NEAR/ ABOVE OPTIM AL: 100 - 129 BORDE RLINE HIGH: 130 - 159 HIGH: 160 - 189 VERY HIGH: > OR = 190 Not Available [facility] [address] [place] [address], [address], 09/23/2022 15:55:29 09/24/1909/23/2022 HEPAT IC (LIVE R) PANEL AST 31 U/L 0-32 normal Not Available [facility] [address] [place] [address], [address], 09/23/2022 15:55:31 09/24/19 23 09/23/2022 HEPAT IC (LIVE R) PANEL ALT 28 U/L 0-33 normal Not Available [facility] [address] [place] [address], [address], 09/23/2022 15:55:31 09/24/19 23 09/23/2022 HEPAT IC (LIVE R) PANEL alkaline phosphatase 77 U/L 30-121 normal Not Available [facility] [address] [place] [address], [address], 09/23/2022 15:55:31 09/24/19 23 09/23/2022 HEPAT IC (LIVE R) PANEL total protein 8.3 g/dL 6.4-8. 3 normal Not Available [facility] [address] [place] [address], [address], 09/23/2022 15:55:31 09/24/19 23 09/23/2022 HEPAT IC (LIVE R) PANEL albumin 5.0 g/dL 3.5-5. 2 normal Not Available [facility] [address] [place] [address], [address], 09/23/2022 15:55:31 09/24/19 23 09/23/2022 HEPAT IC (LIVE R) PANEL bilirubin, total 0.3 mg/dL 0.1-1. 2 normal Not Available [facility] [address] [place] [address], [address], 09/23/2022 15:55:31 09/24/19 23 09/23/2022 HEPAT IC (LIVE R) PANEL bilirubin, direct <0.2 mg/dL 0.0-0. 3 normal Not Available [facility] [address] [place] [address], [address], 09/23/2022 15:55:31 09/24/19 23 09/23/2022 HEPAT IC (LIVE R) PANEL bilirubin, indirect see below mg/dL _(carrol c) 0.0-1. 0 normal Unabl e to calcu late Indir ect Bilir ubin. Not Available [facility] [address] [place] [address], [address], 09/23/2022 15:55:31 09/24/19 23 09/23/2022 MICRO ALBUM IN/CR EAT RATIO microalbumin , random 76 mg/L 0-19 high Not Available [facility] [address] [place] [address], [address], 09/23/2022 15:56:13 09/24/19 23 09/23/2022 MICRO ALBUM IN/CR EAT RATIO creatinine,u r,random 105 mg/dL normal NO ANNA MARIE L RANGE ESTAB LISHE D FOR RANDO M URINE . Not Available [facility] [address] [place] [address], [address], 09/23/2022 15:56:13 09/24/19 23 09/23/2022 MICRO ALBUM IN/CR EAT RATIO MA/creatinin e ratio 72 mcg/m g_cre at 0-29 high Not Available [facility] [address] [place] [address], [address], 09/23/2022 15:56:13 09/24/19 23 09/23/2022 TSH TSH 0.183 u[IU] /mL 0.270- 4.200 low Not Available [facility] [address] [place] [address], [address], 09/23/2022 15:59:57 09/24/19 23 09/23/2022 T4,FR EE T4,free 1.49 NG/dL 0.93-1 .70 normal Not Available [facility] [address] [place] [address], [address], 09/23/2022 15:59:59 09/24/19 23 09/23/2022 hemog lobin A1C, finge rstic k hemoglobin A1C % 7.4 % 4.0 - 5.6 Not Available [facility] [address] [place] [address], [address], 09/23/2022 14:33:14 09/24/19 23 09/23/2022 gluco se, finge rstic k, blood glucose, fingerstick 133 mg/dL 70 - 100 Not Available [facility] [place] [address] [place] [address], [address], 09/23/2022 14:32:58 01/15/20 23 01/14/2023 T4,FR EE T4,free 1.15 NG/dL 0.93-1 .70 normal Not Available [facility] [address] [place] [address], [address], 01/14/2023 16:58:11 01/15/20 23 01/14/2023 TSH TSH 1.800 u[IU] /mL 0.270- 4.200 normal Not Available [facility] [address] [place] [address], [address], 01/14/2023 16:58:13 01/15/20 23 01/14/2023 hemog lobin A1C, finge rstic k hemoglobin A1C % 7.0 % 4.0 - 5.6 Not Available [facility] [address] [place] [address], [address], 01/14/2023 15:14:24 01/15/20 23 01/14/2023 gluco se, finge rstic k, blood glucose, fingerstick 160 mg/dL 70 - 100 Not Available [facility] [place] [address] [place] [address], [address], 01/14/2023 15:07:11 02/06/20 23 06/12/2022 US, carot id arter y No observ ation record ed. [address] (Med Record) [address], [place], [address], 02/05/2023 10:50:23 Result Notes None recorded. Problems Name Problem SNOMED Code Status Onset Date Resolution Date Notes Provider Name and Address Organization Details Recorded Time Transient cerebral ischemia 947403764 Active 2015 From Automated Load;Provi jenny: Lakesha Samuels;Stat us: Active Sabrina Pierre [facility] 9 07:40:40 Disorder of nervous system due to type 2 diabetes mellitus 641152585 Active 2015 From Automated Load;Provi jenny: Lakesha Samuels;Stat us: Active Sabrina Pierre [facility] 9 07:40:40 Hypertensi ve disorder 58373870 Active 2015 From Automated Load;Provi jenny: Lakesha Samuels;Stat us: Active Sabrina Pierre [facility] 9 07:40:40 Hyperlipid emia 34520323 Active 2015 From Automated Load;Provi jenny: Lakesha Samuels;Stat us: Active Sabrina Pierre [facility] 9 07:40:40 Problem Notes None recorded. Procedures Surgical History Date Name Laterality Status Provider Name and Address Organization Details Recorded Time Cholecystectomy completed Deena mcmillan [facility] 09/02/2016 08:46:36 Other completed Deena Milton [facility] 09/02/2016 08:46:42 Imaging Results None recorded. Procedure Notes None recorded. Medical Equipment None Reported. Allergies Allergen ID Allergen Name Allergen Category Reaction Reaction Severity Criticality Documentation Date Start Date Code Code System Note Provider Name and Address Organization Details Recorded Time 671840 Levaquin medicatio n itching Not available Not available 03/27/20162008 77874 2 RxNorm React ion: ITCHI NG; Comme nt: Creat ed By: Jacqui Mckeon praveena Date: 009 3:23: 03 PM; Not Available [facility] 6 05:33:05 Medications Name Sig Start [...] Available lisinopri l 10 mg tablet Bedtime 05/24 /2023 completed Not Available Not Available Not Available [...] Body mass index (BMI) Heart rate Systolic And Diastolic Provider Name and Address Organization Details Last Updated DateTime 09/02/2016 157.48 cm 44607.33 g 35.3 kg/m2 95 /min 134/94 mm[Hg] Deena Milton [facility] 7 10:02:31 Date Recorded Body weight Heart rate Systolic And Diastolic Provider Name and Address Organization Details Last Updated DateTime 09/23/2022 04305.03 g 86 /min 146/86 mm[Hg] Zoe Brown [facility] 09/23/2022 14:31:42 Date Recorded Body weight Body mass index (BMI) Body height Heart rate Systolic And Diastolic Provider Name and Address Organization Details Last Updated DateTime 01/14/2023 09924.18 g 36.3 kg/m2 152.4 cm 82 /min 140/82 mm[Hg] Irma Paezlius [facility] 3 15:09:12 Date Recorded Body height Body mass index (BMI) Body weight Heart rate Oxygen saturation Oxygen saturation in Arterial blood by Pulse oximetry Systolic And Diastolic Provider Name and Address Organization Details Last Updated DateTime 3 152.4 cm 36.9 kg/m2 71852.9 6 g 70 /min 97 % 97 % 122/80 mm[Hg] Nora Fitzpatricklin [facility] 3 14:45:12 Social History Question Answer Notes LastModified by Organizat ion Details LastModified Time Tobacco Smoking Status Never Smoker Deena jones [facility] 09/02/2016 08:46:26 Live Alone Or With Others? With Others Information not available 09/02/2016 Marital Status Informat ion not available 09/02/2016 Sex: Unknown Functional Status Question Answer Note LastModified by Organizat ion Details LastModified Time What is your level of alcohol consumption? None [email or web address] Information not available 09/02/2016 What is your occupation? Unemployed [employer] [facility] [employer] [facility] Information not available 09/02/2016 Mental Status None [...] available 07/2016 08:46:00 Mother Cerebrovascu lar accident [facility] Not available 09/02/2016 08:46:16 Maternal Grandmother Diabetes mellitus [facility] Not available 07/2016 08:46:00 Medical History Condition Response Diabetes Y High Cholesterol Y Stroke Y Hypertension Y Depression Y Gynecological HistoryNo gynecological history recorded. Obstetrics History GPAL:G 0 P 0 0 0 0 Past Encounters Encounter ID Performer Location Encounter Start Date Encounter Closed Date Diagnosis/Indication Diagnosis SNOMED-CT Code Diagnosis ICD10 Code Diagnosis Note [id number] LAKESHA SAMUELS MD NEUROLOGY [facility] CLOSED [address] [facility] [place] [address] 09/02/2016 09:09:14 09/02/2016 11:05:57 Transient cerebral ischemia 929587946 G45.9 New TIA, 02/27/16 with R sided numbness, w/u at [facility] reportedly negative incuding MRI. She has multiple vascular risk factors including diabetes, hypertensi on, hyperlipid emia, obesity, LYLE and previous stroke. 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 stroke and R MCA stenosis October 2008 [...] PRN CC: Jeanine José APRN Essential hypertension 75316960 I10 see abpve Hyperlipidemia 52100621 E78.5 Diabetes mellitus 262482 09 E11.49 Obstructiv e sleep apnea syndrome 47445045 G47.33 [id number] IVAN MORALES MD ENDOCRINO [address] [place] [address] 09/23/2022 14:17:51 09/23/2022 15:07:26 Uncontrolled type 2 diabetes mellitus 100587957 E11.65 A1c of 7.4 in the office [...] months average [goal A1c] < 7 Hyperlipidemia 72425646 E78.5 LDL, direct above goalRechec k lipid panel and LFTs todayCouns eled about the importance of low-choles terol low saturated fat dietContin ue current gemfibrozi l as well as statin therapy Hypothyroidism 28885458 E03.9 TSH of 0.21 in January2Dose decreased to her current dose of levothyrox ine 75 mcgRecheck TSH and free T4 levels todayFurth er adjustment as appropriat ePatient verbalized understand ing and agreed with the above mentioned plan of care. [id number] IVAN MORALES MD ENDOCRINO [address] [address] [place] [address] 01/14/2023 15:02:14 01/14/2023 16:16:28 Uncontrolled type 2 diabetes mellitus 803435928 E11.65 A1c of 7% down from 7.4 in the office todayRando linda point-of-c are blood glucose of 160Goal A1c [...] months average [goal A1c] < 7 Hypothyroidism 78712736 E03.9 TSH of 0.21 in January2Dose decreased to her current dose of levothyrox ine 50 mcgRecheck TSH and free T4 levels todayFurth er adjustment as appropriat ePatient verbalized understand ing and agreed with the above mentioned plan of care. [id number] LAINE HANNON MD NEUROLOGY [address] [place] [address] 02/04/2023 14:30:03 02/05/2023 04:20:25 Migraine 17756880 G43.909 Obstructiv e sleep apnea syndrome 81819459 G47.33 Carotid ar golden stenosis 26362420 I65.29 Health Concerns Section Related Observation LastModified by Organization Detai ls LastModified Time None Recorded Concern Status LastModified by Organization Details LastModified Time None Recorded Advance Directives Directive None Recorded Payers Insurance Date Sequence Insurance Name Policy Number Policy Black Covered Member ID Black Member ID Guarantor Name 01/14/2023 1 [place] [id number] Robert Wild [id number] Elenita Wild 07/12/2023 1 [place] [id number] Robert Wild [id number] Elenita Wild OBGyn Episode No OBEpisode recorded.
--- OUTSIDE RECORDS SUMMARY | 2024-11-27 12:04 | XMS_ITS | Encounter Summary ---
[facility] Address [address] [place] [address] Care Team Providers Care Reference Assistant Name Role Phone PhucMelissa Rosa KWON Primary Care Provider [phone] Reason for Visit * Reason Onset Date Comments Results 11/09/2024 Encounter Details Date Type Department Care Team (Late st Contact Info) Description 11/09/2024 Telephone [facility] END[facility] [address] [place] [address] Kareen Batista, [address] [place] [address] Results Social History Tobacco Use Types Packs/Day Years [...] on file documented as of this encounter Miscellaneous Notes * Telephone Encounter - Patricia De La Garza) - 11/10/2024 9:59 AM EDT Please advise on scanned in labs * Telephone Encounter - Patricia De La Garza (Carmelina) - 11/09/2024 2:30 PM EDT [facility]-they are faxing results * Telephone Encounter - Anna Yeh RegSched Rep - 11/09/2024 1:57 PM EDT Was calling in regards to patients test results. documented in this encounter Plan of Treatment Upcoming Encounters Date Type Department Care Team (Late st Contact Info) Description 04/18/2025 3:30 PM EST Office Visit [facility] [address] [place] [address] Kareen Batista, [address] [place] [address] documented as of this encounter Visit Diagnoses Not on filedocumented in this encounter Care Teams Reference Assistant Relationship Specialty Start Date End Date Melissa Friend APRN [address] [place] [address] [place] [address] PCP - General Nurse Practitioner 07/12/24 documented as of this encounter
--- OUTSIDE RECORDS SUMMARY | 2024-11-27 12:04 | XMS_ITS | Encounter Summary ---
[facility] [address] [place] [address] Care Team Providers Care Mine Laborer Name Role Phone PhucMelissa jerez Rosa KWON Primary Care Provider [phone] Encounter Details Date Type Department Care Team (Late Contact Info) Description 10/30/2024 Telephone [facility] ENDOCRINOLOG[facility] [address] [place] [address] Kareen Batista DO [address] [place] [address] Social History Tobacco Use Types Packs/Day Years [...] Encounters Date Type Department Care Team (Late Contact Info) Description 04/18/2025 3:30 PM EST Office Visit [facility] [address] [place] [address] Kareen Batista DO [address] [place] [address] documented as of this encounter Visit Diagnoses Not on filedocumented in this encounter Care Teams Mine Laborer Relationship Specialty Start Date End Date Melissa Friend APRN [address] [place] [address] PCP - General Nurse Practitioner 07/12/24 documented as of this encounter
--- OUTSIDE RECORDS SUMMARY | 2024-11-27 12:04 | XMS_ITS | Encounter Summary ---
[facility] Address [address] [place] [address] Care Team Providers Care Car Wash Attendant Automatic Name Role Phone Melissa Friend APRN Primary Care Provider [phone] Encounter Details Date Type Department Care Team (Latest Contact Info) Description 10/05/2024 Travel Social History Tobacco Use Types Packs/Day Years [...] [facility] [address] [facility] [address] [place] [address] PacKareen joyce, [address] [facility] [address] [place] [address] documented as of this encounter Visit Diagnoses Not on filedocumented in this encounter Care Teams Car Wash Attendant Automatic Relationship Specialty Start Date End Date Melissa Friend APRN [address] [place] [address] PCP - General Nurse Practitioner 07/12/24 documented as of this encounter
--- OUTSIDE RECORDS SUMMARY | 2024-11-27 12:04 | XMS_ITS | Encounter Summary ---
[facility] Organization [facility] Address [address] [place] [address] Care Team Providers Care Cigarette And Filter Chief Inspector Name Role Phone Phuc Melissa Lee APRN Primary Care Provider [phone] Encounter Details Date Type Department Care Team (Late st Contact Info) Description 10/30/2024 Telephone [facility] ENDOCRINOLOGY [address] [place] [address] Kareen Batista, [address] [place] [address] Social History Tobacco Use Types Packs/Day [...] encounter Miscellaneous Notes * Telephone Encounter - Danielle Saenz MA - 10/30/2024 1:40 PM EDT Spoke with patients daughter and reviewed lab result message in chart. * Telephone Encounter - Gem Moe RegSched Rep - 10/30/2024 1:04 PM EDT PT'S DAUGHTER CALLED TRYING TO GET THE LAB RESULTS FOR THE PT. PLEASE CALL BACK AT [phone]. documented in this encounter Plan of Treatment Upcoming Encounters Date Type Department Care Team (Late st Contact Info) Description 04/18/2025 3:30 PM EST Office Visit [facility] ENDOCR[facility]OLOGY [address] [facility] [address] [place] [address] Kareen Batista, [address] [facility] [address] [place] [address] documented as of this encounter Visit Diagnoses Not on filedocumented in this encounter Care Teams Cigarette And Filter Chief Inspector Relationship Specialty Start Date End Date Melissa Friend APRN [address] [place] [address] PCP - General Nurse Practitioner 07/12/24 documented as of this encounter
== END 2024-11-23 23:59 ==
LOC: LAB.DROPOF 11-27 12:02
PROVIDERS: PCP Nurse Practitioner; Visit Provider Nurse Practitioner Family
DX: N39.0 Urinary tract infection, site not specified (principal)
CPT/HCPCS: 87086; 87088; 87186

== ENCOUNTER 2025-01-05 17:56 | Outpatient (CLI) | payer BC, SELFPAY ==
--- OUTSIDE RECORDS SUMMARY | 2025-01-08 10:23 | XMS_ITS | Encounter Summary ---
[facility] Address [address] [place] [address] Care Team Providers Care Logistics/Shipper Name Role Phone Phuc Melissa Lee APRN Primary Care Provider [phone] Encounter Details Date Type Department Care Team (Late st Contact Info) Description 10/30/2024 Telephone [facility] ENDOCRINOLOGY [address] [place] [address] Kareen Batista, [address] [place] [address] Social History Tobacco Use Types [...] FOR THE PT. PLEASE CALL BACK AT [phone]. documented in this encounter Plan of Treatment Upcoming Encounters Date Type Department Care Team (Late st Contact Info) Description 04/18/2025 3:30 PM EST Office Visit [facility] ENDOCRINOLOGY [address] [facility] [address] [place] [address] Kareen Batista, [address] [facility] [address] [place] [address] documented as of this encounter Visit Diagnoses Not on filedocumented in this encounter Care Teams Logistics/Shipper Relationship Specialty Start Date End Date Melissa Friend APRN [address] [place] [address] PCP - General Nurse Practitioner 07/12/24 documented as of this encounter
--- OUTSIDE RECORDS SUMMARY | 2025-01-08 10:23 | XMS_ITS | Clinical Summary ---
[facility] Organization [facility] Address [address] [place] [address] Care Team Providers Care Traveling Phlebotomist Name Role Phone Phuc Melissa Lee APRN Primary Care Provider [phone] Allergies Active Allergy Reactions Criticality Noted Date [...] No other s/s of cushings. Screen for Valley's with dexamethasone suppression test. Stroke 10/05/2024 Seizure 10/05/2024 Essential hypertension 10/05/2024 Mixed hyperlipidemia 10/05/2024 LYLE on CPAP 10/05/2024 Encounters Date Type Department Care Team Description 11/13/2024 Results Follow-Up [facility] ENDOCRINOLOGY [address] [place] [address] Kareen Batista, 11/09/2024 Telephone [facility] ENDOCRINOLOGY [address] [place] [address] Kareen Batista, DO Results 10/30/2024 Telephone [facility] ENDOCRINOLOGY [address] [place] [address] Kareen Batista, 10/30/2024 Telephone [facility] ENDOCRINOLOGY [address] [place] [address] Kareen Batista DO from Last 3 Months Family History Medical [...] Description 04/18/2025 3:30 PM EST Office Visit [facility] ENDOCRINOLOGY [address] [place] [address] Kareen Batista DO [address] [place] [address] Health Maintenance Due Date Last Done Comments [...] - AM (11/10/2024 9:06 AM EDT) Blood us Kareen Batista DO LAB BLOOD ORDERABLES Alee l Result Performing Organization Address [facility] Co de Phone Number [facility]
[address] [place] [address], * T4, Free (11/10/2024 9:06 AM EDT) Blood us Kareen Clark Pacmauroi DO LAB BLOOD ORDERABLES Alee l Result [facility]
[address] [place] [address], * LABS SCANNED (10/10/2024) us Kareen Batista DO LAB BLOOD ORDERABLES Alee l Result from Last 3 Months Insurance [employer] CROSS BLUE SHIELD PPO [employer] CROSS BLUE SHIELD PPO Care Teams Traveling Phlebotomist Relationship Specialty Start Date End Date Melissa Friend APRN [address] [place] [address] PCP - General Nurse Practitioner 07/12/24
--- OUTSIDE RECORDS SUMMARY | 2025-01-08 10:23 | XMS_ITS | Encounter Summary ---
[facility] Organization [facility] Address [address] [place] [address] Care Team Providers Care Chemical Analyst Name Role Phone PhucMelissa Rosa KWON Primary Care Provider [phone] Reason for Visit * Reason Onset Date Comments Results 11/09/2024 Encounter Details Date Type Department Care Team (Late st Contact Info) Description 11/09/2024 Telephone [facility] ENDOCRINOLOGY [address] [place] [address] Kareen Batista, [address] [place] [address] Results Social History Tobacco Use Types Packs/Day [...] (Carmelina) - 11/09/2024 2:30 PM EDT Called [facility]-they are faxing results * Telephone Encounter - Anna Yeh RegSched Rep - 11/09/2024 1:57 PM EDT Was calling in regards to patients test results. documented in this encounter Plan of Treatment Upcoming Encounters Date Type Department Care Team (Late st Contact Info) Description 04/18/2025 3:30 PM EST Office Visit [facility] ENDOCRINOLOGY [address] [place] [address] Kareen Batista, [address] [place] [address] documented as of this encounter Visit Diagnoses Not on filedocumented in this encounter Care Teams Chemical Analyst Relationship Specialty Start Date End Date Melissa Friend APRN [address] [place] [address] [place] [address] PCP - General Nurse Practitioner 07/12/24 documented as of this encounter
--- OUTSIDE RECORDS SUMMARY | 2025-01-08 10:23 | XMS_ITS | Clinical Summary ---
Author Organization [facility] Address [address] 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 More than 4 times per year 09/08/2023 Do you belong to any clubs o r organizations such as baptist groups, unions, fraternal or athletic groups, or [...] more drinks on one occasion? Never 09/08/2023 [facility] - Occupational [...] place to sleep or slept in a skilled nursing (including now)? No 09/07/2023 CAGE ASSESSMENT Answer [...] drink first t rupesh in the morning (EYE-METAL WIRE TECHNICIAN) to steady your nerves or to get [...] 01/28/2018 UKY-Zoster Vaccines (1 of 2) 01/28/2018 [id number] Vaccine (2 - Shane risk series) 09/04/2020 [...] Reactive Non Reactive 09/05/2023 6:49 AM EDT [facility] Comment:Screening for HIV 1 & 2 antibodies, and P24 antigen is NONREACTIVE. No confirmatory testing is required. Blood Venous blood specimen / Unknown Venipuncture / Unknown 09/05/2023 5:47 AM EDT 09/05/2023 6:08 AM EDT Issa Mccracken MD LAB BLOOD ORDERABLES Final Result [facility] [address] [place] [address] * Hepatitis C Antibody - ED (09/05/2023 5:47 AM EDT) Hepatitis C Antibody Negative Negative 09/05/2023 6:50 AM EDT HEALTHCARE LAB Blood Venous blood specimen / Unknown Venipuncture / Unknown 09/05/2023 5:47 AM EDT 09/05/2023 6:08 AM EDT us Issa Mccracken MD LAB BLOOD ORDERABLES Final Result Performing Organization Address [facility] Co de Phone Number [facility] [address] [place] [address] * (ABNORMAL) Hemoglobin A1c (09/05/2023 5:47 AM EDT) Hemoglobin A1c 6.4(H) <5.7 % 09/05/2023 8:01 AM EDT [facility] Blood Venous blood specimen / [...] Adults <6.0% Children and Adolescents <7.5% Source: [place] Diabetes Association. Standards of medical care in diabetes,2017. Diabetes Care.2017:40 (suppl 1):S1-S135. HbA1c assay performed by an ion-exchange chromatography method that is certified traceable to the DCCT. us Mushtaq Irene MD LAB BLOOD ORDERABLES Final Re sult Performing Organization Address City/[facility]/ZIP Co de Phone Number [facility] [address] [place] [address] * Cytology (03/14/2009 12:00 AM EST) Cerebrospinal fluid specimen (specimen) 03/14/2009 03/15/2009 9 :26 AM EST Narrative SUNQUEST - 03/18/2009 11:22 AM EST [facility] MR #: [id number] [facility] [place] [id number] (Age: 39) FW Collect Date: 03/14/2009 00:00 Receipt Date: 03/15/2009 09:26 Page 1 DEPARTMENT OF PATHOLOGY AND LABORATORY MEDICINE CYTOPATHOLOGY REPORT Email: [email or web address] [phone] ATTENDING MD/Practitioner: Harjinder Curran MD Service: NANCY Location: 8S OTHER MD(S): Wallace Dhillno MD Reported: 03/18/2009 11:22 Collected: 03/14/2009 00:00 DIAGNOSIS A. CEREBROSPINAL FLUID: NO EVIDENCE OF MALIGNANCY. Electronically Signed Out FRANCES Cabrera(ASCP) Clement Sosa M.D. PROCEDURES/ADDENDA GROSS DESCRIPTION: 7 ml's clear fluid. CLINICAL INFORMATION: CLINICAL DIAGNOSIS Vasculitis SPECIMEN DESCRIPTION: A: CEREBROSPINAL FLUID CYTOSPIN x 2 ICD: 447.6 ARTERITIS NOS (VASCULITIS, NOS) F: [id number] EXVA/PAPI SNOMED CODES: A; [id number] A resident has participated in this service. A pathologist has performed and is responsible for the reported pathologic evaluation. us Historical Provider LAB PATHOLOGY ORDERABLES Fin al Result SUNQUEST from Last 3 Months or Most Recently [...] Patient has decision-making capacity? Yes Care Teams Second Baller Relationship Specialty Start Date End Date Melissa Friend APRN [address] [place] [address] PCP - General 09/05/23
--- OUTSIDE RECORDS SUMMARY | 2025-01-08 10:23 | XMS_ITS | Encounter Summary ---
[facility] Address [address] [place] [address] Care Team Providers Care Lehr Tender Name Role Phone PhucMelissa jerez Rosa KWON Primary Care Provider [phone] Encounter Details Date Type Department Care Team (Late st Contact Info) Description 11/13/2024 Results Follow-Up [facility] ENDOCRINOLOGY [address] [place] [address] Kareen Batista DO [address] [place], [place] [address] Social History Tobacco Use Types Packs/Day Years [...] Description 04/18/2025 3:30 PM EST Office Visit [facility] ENDOCRINOLOGY [address] [place] [address] Kareen Batista DO [address] [place] [address] documented as of this encounter Visit Diagnoses Not on filedocumented in this encounter Care Teams Lehr Tender Relationship Specialty Start Date End Date Melissa Friend APRN [address] [facility] [address] PCP - General Nurse Practitioner 07/12/24 documented as of this encounter
--- OUTSIDE RECORDS SUMMARY | 2025-01-08 10:23 | XMS_ITS | Clinical Summary ---
Author Organization [facility] Address [address] [place] [address] Care Team Providers Care Industrial Spraypainter Name Role Phone Melissa Friend EQUIPMENT LEAD Primary Care Provider [phone] Source Comments This information has been disclosed [...] therelease of HIV test results or diagnoses. [id number] Health Allergies Active Allergy Reactions [...] Active Active Problems No known active problems Encounters Date Type Department Care Team Description 11/29/2024 Telephone [facility] Neurosurgery at [facility] [address] [facility] [address] [place] [address] Medhat Islas MD Medication Management (Requesting RX for New Medication ) from Last 3 Months Family History Medical History Relation Comments Cancer [...] 01/22 Assistance needed for: Not on file Yearly Questionnaire Answer Date Record ed Do [...] 2 - PCV) 09/04/2021 09/04/2020 Immunization: COVID-19 (2 - season) 2025 08/07/2020 Immunization: Influenza (MyC pierson) (#1) 2025 02/25/2023, 03/10/2022, 02/20/2021, Additional history exists Depression Screening 01/22/2025 01/23/2024, 12/27/19 24 Insurance Y [address] [place] [id number] BLUE ACCESS Care Teams Industrial Spraypainter Relationship Specialty Start Date End Date Melissa Friend NP [address] [facility] [address] [place] [address] PCP - General 10/11/23
--- OUTSIDE RECORDS SUMMARY | 2025-01-08 10:23 | XMS_ITS | Encounter Summary ---
[facility] Address [address] [place] [address] Care Team Providers Care Employee Development Director Name Role Phone PhucMelissa jerez Rosa KWON Primary Care Provider [phone] Encounter Details Date Type Department Care Team (Late Contact Info) Description 10/30/2024 Telephone [facility] ENDOCRINOLOGY [address] [place] [address] Kareen Batista DO [address] [place] [address] Social History Tobacco Use Types Packs/Day [...] Description 04/18/2025 3:30 PM EST Office Visit [facility] END[facility]CR[facility] [address] [place] [address] Kareen Batista DO [address] [place] [address] documented as of this encounter Visit Diagnoses Not on filedocumented in this encounter Care Teams Employee Development Director Relationship Specialty Start Date End Date Melissa Friend APRN [address] [place] [address] PCP - General Nurse Practitioner 07/12/24 documented as of this encounter
--- OUTSIDE RECORDS SUMMARY | 2025-01-08 10:23 | XMS_ITS | Encounter Summary ---
Author Organization [facility] Address [address] [place] [address] Care Team Providers Care Extras Casting Director Name Role Phone Phuc Melissa Lee SCIENTIST/ENGINEER Primary Care Provider [phone] Source Comments This information has been disclosed to you from confidential records protectfrom disclosure by state law. You shall make no further disclosure of thisinformation without the specific, written, and informed release of theindividual to whom it pertains, or as otherwise permitted by law. A generalauthorization for the release of medical or other information is not sufficientfor the purposes of the release of HIV test results or diagnoses. [id number] Health Reason for Visit * Reason Comments Medication Management Requesting RX for New Medication Encounter Details Date Type Department Care Team (Late st Contact Info) Description 11/29/2024 Telephone [facility] Neurosurgery at [facility] Neuroscience [place] [address] [facility] [address] [place] [address] Medhat Islas MD [address] [facility], 2 [place] [address] Medication Management (Requesting RX for New Medication ) Social History Tobacco Use Types Packs/Day Years [...] Orientation Straight 10/12/2023 10 :46 AM EDT documented as of this encounter Miscellaneous Notes * Telephone Encounter - Jason Cast MA - 11/29/2024 4:11 PM EDT I called pt introduced self & role. Informed pt that over the counter medication will be okay to take. Pt daughter denied having further questions or concerns. * Telephone Encounter - Sherley Macario MA - 11/29/2024 1:54 PM EDT Pt daughter called requesting prescription for new medication. Name of Medication: Altitude sickness Medication Reason for Request: Pt [place] traveling [place] Please return call to advise if can prescribe at [phone]. Confirmed Pt's preferred pharmacy is: [facility] - [facility] - [place], [place] - [address] [place] [address] [facility] [address] [place] [address] [facility] [address] documented in this encounter Plan of Treatment Not on file documented as of this encounter Visit Diagnoses Not on filedocumented in this encounter Care Teams Extras Casting Director Relationship Specialty Start Date End Date Melissa Friend, SCIENTIST/ENGINEER [address] [place] [address] [place] [address] PCP - General 10/11/23 documented as of this encounter
== END 2025-01-05 23:59 ==
LOC: LAB.DROPOF 01-08 10:21
PROVIDERS: PCP Student in an Organized Health Care Education/Training Program; Visit Provider Student in an Organized Health Care Education/Training Program
DX: N39.0 Urinary tract infection, site not specified (principal)
CPT/HCPCS: 87086

== ENCOUNTER 2025-01-14 10:36 | Emergency (ER) | payer BC, SELFPAY ==
--- NOTE | 2025-01-14 10:47 | ECG_ITS ---
APPROVED REPORT Exam: Resting ECG HR:84 bpm ECG Measurements Heart Rate 84 AXES AZ 173 P 64 QRSd 90 QRS 63 QT 350 T 63 QTc 391 Conclusion SINUS RHYTHM NORMAL ECG UNCONFIRMED REPORT Electronically signed by : Arben Fischer, 01/14/2025 14:44:10
--- OUTSIDE RECORDS SUMMARY | 2025-01-14 10:51 | XMS_ITS | Encounter Summary ---
Author Organization [facility] Address [address] [place] [address] Care Team Providers Care Coreroom Foundry Laborer Name Role Phone Phuc Melissa Lee EAR MOLD LABORATORY TECHNICIAN Primary Care Provider [phone] Source Comments This information has been [...] release of HIV test results or diagnoses. [id number] Health Reason for Visit * Reason Comments Medication Management Requesting RX for New Medication Encounter Details Date Type Department Care Team (Late st Contact Info) Description 11/29/2024 Telephone [facility] Neurosurgery at [facility] Neuroscience [place] [address] [facility] [address] [place] [address] Medhat Islas MD [address] [facility], 2 [place] [address] Medication Management (Requesting RX for [...] call to advise if can prescribe at [phone]. Confirmed Pt's preferred pharmacy is: [facility] - [facility] - [place], [place] - [address] [place] [address] AT [facility] [address] [place] [address] [facility] [address] documented in this encounter Plan of Treatment Not on file documented as of this encounter Visit Diagnoses Not on filedocumented in this encounter Care Teams Coreroom Foundry Laborer Relationship Specialty Start Date End Date Melissa Friend, EAR MOLD LABORATORY TECHNICIAN [address] [place] [address] [place] [address] PCP - General 10/11/23 documented as of this encounter
--- OUTSIDE RECORDS SUMMARY | 2025-01-14 10:51 | XMS_ITS | Encounter Summary ---
[facility] Address [address] [place] [address] Care Team Providers Care Forest Fire Equipment Operator Name Role Phone Phuc Melissa Lee APRN Primary Care Provider [phone] Encounter Details Date Type Department Care Team (Late st Contact Info) Description 10/30/2024 Telephone [facility] [address] [place] [address] Kareen Batista, [address] [place] [address] Social History Tobacco Use Types [...] Miscellaneous Notes * Telephone Encounter - Danielle Seanz MA - 10/30/2024 1:40 PM EDT Spoke with patients daughter and reviewed lab result message in chart. * Telephone Encounter - Gem Moe RegSched Rep - 10/30/2024 1:04 PM EDT PT'S DAUGHTER CALLED TRYING TO GET THE LAB RESULTS FOR THE PT. PLEASE CALL BACK AT [phone]. documented in this encounter Plan of Treatment Upcoming Encounters Date Type Department Care Team (Late st Contact Info) Description 04/18/2025 3:30 PM EST Office Visit [facility] [address] [facility] [address] [place] [address] Kareen Batista, [address] [facility] [address] [place] [address] documented as of this encounter Visit Diagnoses Not on filedocumented in this encounter Care Teams Forest Fire Equipment Operator Relationship Specialty Start Date End Date Melissa Friend APRN [address] [place] [address] PCP - General Nurse Practitioner 07/12/24 documented as of this encounter
--- OUTSIDE RECORDS SUMMARY | 2025-01-14 10:51 | XMS_ITS | Encounter Summary ---
[facility] Address [address] [place] [address] Care Team Providers Care Information Resources Director Name Role Phone PhucMelissa jerez Rosa KWON Primary Care Provider [phone] Encounter Details Date Type Department Care Team (Late st Contact Info) Description 11/13/2024 Results Follow-Up [facility] ENDOCR[facility]OLOG[facility] [address] [place] [address] Kareen Batista DO [address] [place], [place] [address] Social History Tobacco Use Types Packs/Day Years [...] Description 04/18/2025 3:30 PM EST Office Visit [facility] END[facility] [address] [place] [address] Kareen Batista DO [address] [place] [address] documented as of this encounter Visit Diagnoses Not on filedocumented in this encounter Care Teams Information Resources Director Relationship Specialty Start Date End Date Melissa Friend APRN [address] [place] [address] [facility] [address] PCP - General Nurse Practitioner 07/12/24 documented as of this encounter
--- OUTSIDE RECORDS SUMMARY | 2025-01-14 10:51 | XMS_ITS | Clinical Summary ---
Author Organization [facility] Address [address] [place] [address] Care Team Providers Care Manager Epic Name Role Phone Melissa Friend LOADING UNIT OPERATOR CRIMPING Primary Care Provider [phone] Source Comments This information has been disclosed [...] therelease of HIV test results or diagnoses. [id number] Health Allergies Active Allergy Reactions [...] Type Department Care Team Description 11/29/2024 Telephone [facility] at [facility] [address] [facility] [address] [place] [address] Medhat Islas MD Medication Management [...] 24 Insurance Y [address] [place] [id number] BLUE ACCESS Care Teams Manager Epic Relationship Specialty Start Date End Date Melissa Friend NP [address] [place] [address] [facility] [address] [place] [address] PCP - General 10/11/23
--- OUTSIDE RECORDS SUMMARY | 2025-01-14 10:51 | XMS_ITS | Clinical Summary ---
[facility] Organization [facility] Address [address] [place] [address] Care Team Providers Care Human Resource Consultant Name Role Phone Phuc Melissa Lee APRN Primary Care Provider [phone] Allergies Active Allergy Reactions Criticality Noted Date [...] Screen for Damian's with dexamethasone suppression test. Stroke 10/05/2024 Seizure 10/05/2024 Essential hypertension 10/05/2024 Mixed hyperlipidemia 10/05/2024 LYLE on CPAP 10/05/2024 Encounters Date Type Department Care Team Description 11/13/2024 Results Follow-Up [facility] [address] [place] [address] Kareen Batista, 11/09/2024 Telephone [facility] [address] [place] [address] Kareen Batista, DO Results 10/30/2024 Telephone [facility] [address] [place] [address] Kareen Batista, 10/30/2024 Telephone [facility] [address] [place] [address] Kareen Batista DO from Last 3 Months [...] 3:30 PM EST Office Visit [facility] [address] [place] [address] Kareen Batista DO [address] [place] [address] Health Maintenance Due Date Last Done Comments [...] (2 of 2 - PCV) 09/04/2021 09/04/2020 LIPID PANEL 09/04/2024 09/05/2023 ANNUAL PHYSICAL 10/05/2024 COVID-19 Vaccine (2 - 2024-2 6 season) 2025 08/07/2020 INFLUENZA VACCINE 01/31/2025 03/08/2024, , 03/10/2022, Additional history exists HEPATITIS C SCREENING Completed 09/05/2023 Procedures Procedure Name Priority Date/Time Associated Diagnosis Comments T4, FREE Routine 11/10/2024 9:06 AM EDT Acquired hypothyroidism CORTISOL - AM Routine 11/10/2024 9:06 AM EDT Class 1 obesity with serious comorbidity and body mass index (BMI) of 33.0 to 33.9 in adult, unspecified obesity type from Last 3 Months Results * Cortisol - AM (11/10/2024 9:06 AM EDT) Blood Kareen Matthewjose Lucianoi DO LAB BLOOD ORDERABLES Alee l Result Performing Organization Address [facility] Co de Phone Number [facility]
[address] [place] [address], * T4, Free (11/10/2024 9:06 AM EDT) Blood [facility]ose [facility] LAB BLOOD ORDERABLES Alee l Result Performing Organization Address [facility]/ZIP Co de Phone Number [facility]
[address] [place] [address], from Last 3 Months [facility] [employer] [employer] PPO Member Subscriber Plan / Payer ( fective 2020-Present) Name:Elenita Wild Relation to Subscriber:Spouse Name:BILLYHUSSAIN Date of :1961 (Home) Address: [address] [place] [address] JOHNATHAN NAVARRO [facility] Payer ID:[id number] (NAIC) Type:Not on file Address: [address] [employer] PPO Care Teams Human Resource Consultant Relationship Specialty Start Date End Date Melissa Friend APRN [address] [place] [address] PCP - General Nurse Practitioner 07/12/24
--- OUTSIDE RECORDS SUMMARY | 2025-01-14 10:51 | XMS_ITS | Clinical Summary ---
Author Organization [facility] Address [address] [place] [address] Care Team Providers Care Director Clinical Data Name Role Phone Melissa Friend APRN Primary Care Provider [phone] Allergies Active Allergy Reactions Criticality Noted Date [...] 3 months w/ EEG Chronic ischemic left SERVICE COORDINATOR stroke 09/05/2023 Resolved Problems Problem Noted Date [...] week 09/08/2023 How often do you attend [facility] or buddhism services? More than 4 times per year 09/08/2023 Do you belong to any clubs o r organizations such as latter-day groups, unions, fraternal or athletic groups, or [...] more drinks on one occasion? Never 09/08/2023 [facility] Occupat ional Health - Occupational Stress [...] place to sleep or slept in a long-term (including now)? 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 No confirmatory testing is required. Blood Venous blood specimen / Unknown Venipuncture / Unknown 09/05/2023 5:47 AM EDT 09/05/2023 6:08 AM EDT Issa Mccracken MD LAB BLOOD ORDERABLES Final Result [facility] [address] [place] [address] * Hepatitis C Antibody - ED (09/05/2023 5:47 AM EDT) Hepatitis C Antibody Negative Negative 09/05/2023 6:50 AM EDT HEALTHCARE LAB Blood Venous blood specimen / Unknown Venipuncture / Unknown 09/05/2023 5:47 AM EDT 09/05/2023 6:08 AM EDT us Issa Mccracken MD LAB BLOOD ORDERABLES Final Result Performing Organization Address [facility] Co de Phone Number [facility] [address] [place] [address] * (ABNORMAL) Hemoglobin A1c (09/05/2023 5:47 AM EDT) Hemoglobin A1c 6.4(H) <5.7 % 09/05/2023 8:01 AM EDT [facility] Blood Venous blood specimen / [...] Adults <6.0% Children and Adolescents <7.5% Source: [place] [employer]. Standards of medical care in diabetes,2017. Diabetes Care.2017:40 (suppl 1):S1-S135. HbA1c assay performed by an ion-exchange chromatography method that is certified traceable to the DCCT. us Mushtaq Irene MD LAB BLOOD ORDERABLES Final Re sult Performing Organization Address City/[facility]/ZIP Co de Phone Number [facility] [address] [place] [address] * Cytology (03/14/2009 12:00 AM EST) Cerebrospinal fluid specimen (specimen) 03/14/2009 03/15/2009 9 :26 AM EST Narrative SUNQUEST - 03/18/2009 11:22 AM EST [facility] MR #: [id number] [facility] [place] [address] 1970 (Age: 39) FW Collect Date: 03/14/2009 00:00 Receipt Date: 03/15/2009 09:26 Page 1 DEPARTMENT OF PATHOLOGY AND LABORATORY MEDICINE CYTOPATHOLOGY REPORT Email: [email or web address] [phone] ATTENDING MD/Practitioner: Harjinder Curran MD Service: NANCY Location: 8S OTHER MD(S): Wallace Dhillon MD Reported: 03/18/2009 11:22 Collected: 03/14/2009 00:00 DIAGNOSIS A. CEREBROSPINAL FLUID: NO EVIDENCE OF MALIGNANCY. Electronically Signed Out FRANCES Cabrera(ASCP) Clement Sosa M.D. PROCEDURES/ADDENDA GROSS DESCRIPTION: 7 ml's clear fluid. CLINICAL INFORMATION: CLINICAL DIAGNOSIS Vasculitis SPECIMEN DESCRIPTION: A: CEREBROSPINAL FLUID CYTOSPIN x 2 ICD: 447.6 ARTERITIS NOS (VASCULITIS, NOS) F: [id number] EXVA/PAPI SNOMED CODES: A; [id number] A resident has participated in this service. [...] Patient has decision-making capacity? Yes Care Teams Director Clinical Data Relationship Specialty Start Date End Date Melissa Friend APRN [address] [place] [address] PCP - General 09/05/23
--- OUTSIDE RECORDS SUMMARY | 2025-01-14 10:51 | XMS_ITS | Encounter Summary ---
Author Organization [facility] Address [address] [place] [address] Care Team Providers Care Dowel Pin Man Name Role Phone PhucMelissa jerez Rosa KWON Primary Care Provider [phone] Encounter Details Date Type Department Care Team (Late Contact Info) Description 10/30/2024 Telephone [facility] [address] [place] [address] Kareen Batista DO [address] [place] [address] Social History Tobacco Use Types [...] Description 04/18/2025 3:30 PM EST Office Visit [facility] [address] [place] [address] Kareen Batista DO [address] [place] [address] documented as of this encounter Visit Diagnoses Not on filedocumented in this encounter Care Teams Dowel Pin Man Relationship Specialty Start Date End Date Melissa Friend APRN [address] [place] [address] PCP - General Nurse Practitioner 07/12/24 documented as of this encounter
--- OUTSIDE RECORDS SUMMARY | 2025-01-14 10:51 | XMS_ITS | Encounter Summary ---
Author Organization [facility] Address [address] [place] [address] Care Team Providers Care Nut Roaster Name Role Phone PhucMelissa Rosa KWON Primary Care Provider Reason for Visit * Reason Onset Date Comments Results 11/09/2024 Encounter Details Date Type Department Care Team (Late st Contact Info) Description 11/09/2024 Telephone [facility] [address] [place] [address] Kareen Batista, [address] [place] [address] Results Social History Tobacco Use Types Packs/Day [...] (Carmelina) - 11/09/2024 2:30 PM EDT Called [facility]-they are faxing results * Telephone Encounter - Anna Yeh RegSched Rep - 11/09/2024 1:57 PM EDT Was calling in regards to patients test results. documented in this encounter Plan of Treatment Upcoming Encounters Date Type Department Care Team (Late st Contact Info) Description 04/18/2025 3:30 PM EST Office Visit [facility] [address] [place] [address] Kareen Batista, [address] [place] [address] documented as of this encounter Visit Diagnoses Not on filedocumented in this encounter Care Teams Nut Roaster Relationship Specialty Start Date End Date Melissa Friend APRN [address] [place] [address] [place] [address] PCP - General Nurse Practitioner 07/12/24 documented as of this encounter
[2025-01-14 10:55] VITALS: BP 132/97; PULSE 98; RESP 19; TEMP 36.7; O2SAT 100; BMI 33.2
--- NOTE | 2025-01-14 11:15 | CT_ITS ---
PROCEDURE INFORMATION: Exam: CT Head Without Contrast Exam date and time: 01/14/2025 11:49 AM Age: 54 years old Clinical indication: Dizziness; Additional info: Light headed/vertigo TECHNIQUE: Imaging protocol: Computed tomography of the head without contrast. Radiation optimization: All CT scans at this facility use at least one of these dose optimization techniques: automated exposure control; mA and/or kV adjustment per patient size (includes targeted exams where dose is matched to clinical indication); or iterative reconstruction. COMPARISON: CT ANGIO HEAD 10/07/2024 9:07 PM FINDINGS: Brain: No acute intracranial hemorrhage.. There is moderate diffuse heterogeneity of the white matter attenuation, consistent with chronic white matter ischemic changes. Moderate cerebral atrophy. There are multiple small hypodensities in the basal ganglia, consistent with remote lacunar infarctions. Well delineated low-attenuation in the left occipital lobe consistent with prior infarction. Cerebral ventricles: No ventriculomegaly. Paranasal sinuses: Visualized sinuses are unremarkable. No fluid levels. Mastoid air cells: Visualized mastoid air cells are well aerated. Bones: Unremarkable. No acute fracture. Soft tissues: Unremarkable. IMPRESSION: 1. No acute intracranial hemorrhage.. 2. Well delineated low-attenuation in the left occipital lobe consistent with prior infarction.
--- NOTE | 2025-01-14 11:15 | CT_ITS ---
PROCEDURE INFORMATION: Exam: CTA Neck With Contrast Exam date and time: 01/14/2025 11:50 AM Age: 54 years old Clinical indication: Vertigo; Additional info: Light headed/vertigo TECHNIQUE: Imaging protocol: Computed tomographic angiography of the neck with contrast. Exam focused on the cervical segments of the vasculature. 3D rendering (Not supervised by radiologist): MIP and/or 3D reconstructed images were created by the technologist. Radiation optimization: All CT scans at this facility use at least one of these dose optimization techniques: automated exposure control; mA and/or kV adjustment per patient size (includes targeted exams where dose is matched to clinical indication); or iterative reconstruction. Contrast material: ISOVUE 370; Contrast volume: 80 ml; Contrast route: INTRAVENOUS (IV); COMPARISON: CT ANGIO NECK 10/07/2024 9:07 PM FINDINGS: Right common carotid artery: No stenosis. No dissection or occlusion. Right internal carotid artery: There is no significant stenosis or occlusion (0%). Right external carotid artery: No occlusion or stenosis of the origin. Left common carotid artery: No stenosis. No dissection or occlusion. Left internal carotid artery: There is no significant stenosis or occlusion (0%). Left external carotid artery: No occlusion or stenosis of the origin. 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 Left vertebral artery: There is no significant stenosis or occlusion (0%). Salivary glands: Submandibular glands and parotid glands appear unremarkable. Thyroid: Thyroid gland appears unremarkable. Soft tissues: The soft tissues of the neck are unremarkable. Bones/joints: No acute fracture. Lungs: Partially imaged lungs are clear. IMPRESSION: 1. Right vertebral artery is hypoplastic. 2. No significant stenosis or occlusion in the carotid arteries and left vertebral artery in the neck. REFERENCES: NASCET CRITERIA. The degree of stenosis in the cervical segment of the internal carotid artery is based on NASCET criteria. Normal is no stenosis. Mild is less than 50% stenosis. Moderate is 50-69% stenosis. Severe is 70% to 99% stenosis. Total occlusion is no detectable patent lumen.
--- NOTE | 2025-01-14 11:15 | CT_ITS ---
PROCEDURE INFORMATION: Exam: CTA Head With Contrast, Arteriography Exam date and time: 01/14/2025 11:50 AM Age: 54 years old Clinical indication: Vertigo; Additional info: Light headed/vertigo TECHNIQUE: Imaging protocol: Computed tomographic angiography of the head with contrast. Exam focused on the arteries. 3D rendering (Not supervised by radiologist): MIP and/or 3D reconstructed images were created by the technologist. Radiation optimization: All CT scans at this facility use at least one of these dose optimization techniques: automated exposure control; mA and/or kV adjustment per patient size (includes targeted exams where dose is matched to clinical indication); or iterative reconstruction. Contrast material: ISOVUE 370; Contrast volume: 80 ml; Contrast route: INTRAVENOUS (IV); COMPARISON: CT ANGIO HEAD 10/07/2024 9:07 PM FINDINGS: ANTERIOR CIRCULATION: Right internal carotid artery: Intracranial segment is patent with no significant stenosis or occlusion. No aneurysm. There are atherosclerotic changes. Right middle cerebral artery: No occlusion or significant stenosis. No aneurysm. Right anterior cerebral artery: No occlusion or significant stenosis. No aneurysm. Left internal carotid artery: Intracranial segment is patent with no significant stenosis or occlusion. No aneurysm. There are atherosclerotic changes. Left middle cerebral artery: No occlusion or significant stenosis. No aneurysm. Left anterior cerebral artery: No occlusion or significant stenosis. No aneurysm. POSTERIOR CIRCULATION: Right vertebral artery: Hypoplastic. Left vertebral artery: No occlusion or significant stenosis. No aneurysm. There are atherosclerotic changes. Basilar artery: No occlusion or significant stenosis. No aneurysm. There are atherosclerotic changes. Right posterior cerebral artery: No occlusion or significant stenosis. No aneurysm. 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 Brain: There is remote ischemic infarct with encephalomalacia in the left temporal occipital region. Cerebral ventricles: There is ex vacuo dilation of the occipital horn of the left lateral ventricle. The right lateral ventricle, 3rd ventricle and 4th ventricle are not dilated. Bones/joints: Unremarkable. No acute fracture. Soft tissues: Unremarkable. 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 The [id number] is otherwise intact.
--- NOTE | 2025-01-14 11:17 | HMH.EDGENADL ---
Discharge Plan Disposition Chief Complaint: Dizziness Prescriptions Prescriptions: No Action bisacodyl [Dulcolax (bisacodyl)] 10 mg suppository 10 mg RI DAILY PRN (Reason: constipation) Qty: 12 0RF sennosides [senna] 8.6 mg tablet 8.6 mg PO DAILY Qty: 30 2RF meclizine 25 mg tablet 25 mg PO DAILY PRN (Reason: Nausea) Qty: 270 0RF estradiol 0.01 % (0.1 mg/gram) cream See Rx Instructions vaginal .COMPLEX Qty: 42.5 2RF Rx Instructions: Using finger technique daily for two weeks and then twice weekly vaginally; nitrofurantoin monohyd/m-cryst [Macrobid] 100 mg capsule 100 mg PO Q12H 5 Days Qty: 10 0RF Rx Instructions: must administer with a meal/food cefdinir 300 mg capsule 300 mg PO BID Qty: 20 0RF topiramate 25 mg tablet 25 mg PO BID Qty: 60 5RF Nurtec ODT 75 mg tablet,disintegrating See Rx Instructions .ROUTE .COMPLEX Qty: 8 5RF Dose Instruction: DISSOLVE 1 TABLET BY MOUTH EVERY OTHER DAY NEEDED FOR MIGRAINE Rx Instructions: DISSOLVE 1 TABLET BY MOUTH EVERY OTHER DAY NEEDED FOR MIGRAINE fluticasone propionate [Flonase Allergy Relief] 50 mcg/actuation spray,suspension 2 spray intranasal DAILY Qty: 48 1RF Rx Instructions: administer into each nostril pregabalin 100 mg capsule 100 mg PO BID Qty: 60 3RF duloxetine 60 mg capsule,delayed release(DR/EC) See Rx Instructions .ROUTE .COMPLEX Qty: 180 1RF Dose Instruction: TAKE 1 CAPSULE BY MOUTH TWICE DAILY FOR PAIN Rx Instructions: TAKE 1 CAPSULE BY MOUTH TWICE DAILY FOR PAIN atorvastatin 80 mg tablet 80 mg PO HS Qty: 90 0RF levothyroxine 50 mcg tablet 50 mcg PO DAILY Qty: 90 0RF cyclobenzaprine 10 mg tablet 10 mg PO DAILY PRN (Reason: muscle relaxer) Qty: 180 0RF aspirin 81 mg tablet,delayed release (DR/EC) See Rx Instructions .ROUTE .COMPLEX Qty: 90 0RF Dose Instruction: TAKE 1 TABLET BY MOUTH ONCE DAILY FOR HEART HEALTH Rx Instructions: TAKE 1 TABLET BY MOUTH ONCE DAILY FOR HEART HEALTH levetiracetam 750 mg tablet See Rx Instructions .ROUTE .COMPLEX Qty: 180 0RF Dose Instruction: Take 1 tablet by mouth twice daily Rx Instructions: Take 1 tablet by mouth twice daily Ozempic 1 mg/dose (4 mg/3 mL) pen injector 1 mg SQ WEEKLY Qty: 9 1RF Linzess 72 mcg capsule 72 mcg PO DAILY Qty: 90 3RF gemfibrozil 600 mg tablet 600 mg PO BID Qty: 180 0RF loratadine [Allergy Relief (loratadine)] 10 mg tablet See Rx Instructions .ROUTE .COMPLEX Qty: 90 0RF Dose Instruction: Take 1 tablet by mouth once daily Rx Instructions: Take 1 tablet by mouth once daily metformin 500 mg tablet See Rx Instructions .ROUTE .COMPLEX Qty: 60 5RF Dose Instruction: Take 1 tablet by mouth twice daily Rx Instructions: Take 1 tablet by mouth twice daily Referrals Follow up/Referrals: Melissa Friend APRN [Primary Care Provider, Family Practice] - See instructions Clinical Impressions Clinical Impression: Postural dizziness Print Language Print Language: Niuean Discharge ED Provider: Mike Fischer General Adult HPI General Chief complaint: Dizziness Stated complaint: AO 01/14/25 0830, fell, high b/p, dizzy Time Seen by Provider: 01/14/25 11:05 Mode of Arrival: Ambulatory Source of Information: Patient Description of Symptoms (Recalled from ER Triage Doc. by RN): pt presents to ED with c/o dizziness, high blood pressure, and near fall this morning. pt reports that she woke up this am and had blood pressure reading of 150/101. pt reports that she had a near fall but her was able to catch her before she hit the floor. pt reports an episode of emesis after her near fall. no loc, pt did not hit her head. History of Present Illness HPI narrative: Patient is a 54-year-old female presenting today with dizziness. States that she woke up in her normal state of health this morning around 8 AM was walking normally and bent over to pick something up and felt very dizzy and lightheaded as if she was going to lose consciousness or fall and she was falling forward and her caught her. She states that she has had similar symptoms like this since she had her stroke 16 years ago where she with particular positional changes will feel lightheaded. No vertiginous type symptoms noted. She did state that when this was occurring she was having a difficult time walking afterwards but no focal coordination changes vision changes or motor changes different from her normal baseline. She has residual visual field loss and right sided weakness from her old stroke which is at its baseline right now. She states she feels much better at the moment. Related Data Previous Rx's ?Medication ?Instructions ?Recorded meclizine 25 mg tablet 25 mg PO DAILY PRN Nausea #270 tabs 09/08/23 topiramate 25 mg tablet 25 mg PO BID #60 tabs 03/23/24 estradiol 0.01% (0.1 mg/gram) See Rx Instructions vaginal 04/03/24 vaginal cream .COMPLEX #42.5 grams rimegepant 75 mg disintegrating See Rx Instructions .Route 04/03/24 tablet (Nurtec ODT) .COMPLEX #8 tabs fluticasone propionate 50 2 spray intranasal DAILY #48 grams 05/26/24 mcg/actuation nasal spray,suspension (Flonase Allergy Relief) pregabalin 100 mg capsule 100 mg PO BID Pain #60 caps 06/28/24 duloxetine 60 mg capsule,delayed See Rx Instructions .Route 08/10/24 release .COMPLEX #180 ea bisacodyl 10 mg rectal suppository 10 mg RI DAILY PRN constipation 08/17/24 (Dulcolax (bisacodyl)) #12 ea sennosides 8.6 mg tablet (senna) 8.6 mg PO DAILY #30 tabs 08/17/24 atorvastatin 80 mg tablet 80 mg PO HS #90 tabs 10/23/24 cyclobenzaprine 10 mg tablet 10 mg PO DAILY PRN muscle relaxer 10/23/24 #180 tabs levothyroxine 50 mcg tablet 50 mcg PO DAILY #90 tabs 10/23/24 aspirin 81 mg tablet,delayed See Rx Instructions .Route 10/30/24 release .COMPLEX #90 tabs levetiracetam 750 mg tablet See Rx Instructions .Route 11/06/24 .COMPLEX #180 tabs linaclotide 72 mcg capsule 72 mcg PO DAILY #90 caps 11/16/24 (Linzess) semaglutide 1 mg/dose (4 mg/3 mL) 1 mg (0.75 mL) SQ WEEKLY #9 mL 11/16/24 subcutaneous pen injector (Ozempic) nitrofurantoin 100 mg PO Q12H 5 days #10 caps 11/23/24 monohydrate/macrocrystals 100 mg capsule (Macrobid) gemfibrozil 600 mg tablet 600 mg PO BID Diabetes #180 tabs 12/25/24 loratadine 10 mg tablet (Allergy See Rx Instructions .Route 01/02/25 Relief (loratadine)) .COMPLEX #90 tabs cefdinir 300 mg capsule 300 mg PO BID #20 caps 01/05/25 metformin 500 mg tablet See Rx Instructions .Route 01/08/25 .COMPLEX #60 tabs Allergies Allergy/AdvReac Type Severity Reaction Status Date / Time levofloxacin (LEVOFLOXACIN) Allergy Unknown Hives Verified 01/05/25 17:53 [facility] Disclaimer: The information contained in this section may have been updated after the patient was seen, as this information can be updated by other users. Medical History Recurrent UTI Balance problem Transient neurological symptoms Hypothyroidism Right homonymous hemianopsia History of nephrolithiasis Migraine Depression Hyperlipidemia Hypertension DM type 2 (diabetes mellitus, type 2) History of CVA (cerebrovascular accident) Obesity (BMI 30.0-34.9) Hypothyroidism Surgical History History of cholecystectomy Family History Other Cancer Coronary artery disease Diabetes Heart attack Hyperlipidemia Hypertension Hypothyroidism Social History Smoking Status: Never smoker alcohol intake: never substance use type: denies use current occupational status: disabled Travel in the last 8 weeks?: None household members: family housing: house Have you lived/traveled outside US in past 30 days?: No Contact w/someone who lives/traveled outside US past 30 days?: No Exposure to someone with infectious disease in past 14 days?: No Do you have a fever (greater than 100.4 F or 38 C)?: No Have you tested positive for COVID-19?: No Exposed to someone with COVID-19 in past 14 days?: No Do you have a sore throat?: No Do you have a cough?: No Do you have any weakness?: No Do you have any diarrhea?: No Are you experiencing any unusual bleeding?: No Do you have any muscle aches/pain?: No Do you have any abdominal pain?: No Are you experiencing loss of taste or smell?: No Other Medical History Have you received the Pneumonia Vaccine: Yes Physical Exam Respiratory Respiratory exam: Present normal lung sounds bilaterally Cardiovascular Cardiovascular exam: Present regular rate Neurological Exam Neurological exam: Present alert, oriented X3 and other (Patient has right sided facial weakness which is mild but at baseline and right upper and right lower extremity weakness which is mild but at baseline visual field deficit at baseline otherwise no focal neurologic deficit.) Medical Decision Making Medical Records Screening: Per USPSTF and CDC recommendations, given the prevalence of disease in our region, it is our hospital?s policy to screen for HIV and viral Hepatitis for all patients aged 18 and over and those with ongoing risk factors. Vital Signs: 01/14/25 10:55 Temperature 98.0 F Temperature Source Oral Pulse Rate [Left Radial] 98 H Respiratory Rate 19 Blood Pressure [Right Arm] 132/97 H Blood Pressure Mean [Right Arm] 108 02 Sat by Pulse Oximetry 100 Oxygen Delivery Method Room Air Orders (Tests/Meds): ED MEDICATIONS Generic Name Dose Route Start Last Admin Trade Name Freq PRN Reason Stop Dose Admin Lactated Ringer's 1,000 mls @ 999 mls/hr 01/14/25 11:15 Lactated Ringer's 1000 Ml Bag IV 01/14/25 12:15 .Q1H1M STELLA Meclizine HCl 25 mg 01/14/25 11:15 Meclizine 25mg Tablet PO 01/14/25 11:16 ONCE ONE ORDERS Category Date Time Status CT angio head Stat Cat Scan 01/14/25 11:[address] angio neck Stat Cat Scan 01/14/25 11:[address] head/brain wo con Stat Cat Scan 01/14/25 11:15 Ordered CBC w/Auto Diff [Complete Blood Count Auto Diff] Stat Lab 01/14/25 11:15 Ordered CMP [Comprehensive Metabolic Panel] Stat Lab 01/14/25 11:15 Ordered HIV Combo Stat Lab 01/14/25 11:11 Ordered Hepatitis C Ab Qual. W/ RFX Stat Lab 01/14/25 11:11 Ordered Magnesium Stat Lab 01/14/25 11:15 Ordered TSH [Thyroid Stimulating Hormone] Stat Lab 01/14/25 11:15 Ordered Trop I [Troponin I] Stat Lab 09/14/25 11:15 Ordered Troponin I Q3H Lab 01/14/25 14:15 Ordered Troponin I Q3H Lab 01/14/25 17:15 Ordered UA [Urinalysis and Microscopic] Stat Lab 01/14/25 11:15 Ordered ECG Data Tracing #1: I reviewed this ECG and interpreted as documented below: Ventricular rate of 84 normal sinus rhythm no acute ischemic changes noted normal axis no conduction abnormalities Medical Decision Narrative: 54-year-old with above history and physical likely positional dizziness that is residual from chronic neurologic abnormalities from her stroke 16 years ago she states this has been a common phenomenon. She was concerned today that she was having a stroke but her exam seems to be at baseline. Unlikely to be a posterior circulation stroke as she has normal finger-nose [id number] walking and Romberg test on my evaluation. Will get CTAs given her history and CT Noncon of the head. Also administer fluids. On my evaluation and exam she did get somewhat symptomatic upon standing but described this is a dizziness not any type of vertiginous type symptoms. I do not believe that she is having vertigo rather positional dizziness. Nonetheless I will give her some meclizine in addition to IV fluids to see if symptomatically can improve her.
[2025-01-14 11:22] LABS: Hematocrit 48.6 % (37.0-47.0); Hemoglobin 15.5 g/dL (12.2-16.2); Immature Granulocytes % 0.3 %; Mean Corpuscular HGB Conc 31.9 g/dL (31.8-35.4); Mean Corpuscular Hemoglobin 28.0 pg (27.0-31.2); Mean Corpuscular Volume 87.7 fl (81-99); Nucleated Red Blood Cells % 0 %; Platelet Count 288 K/mm3 (142-424); Red Blood Count 5.54 M/mm3 (4.20-5.40); Red Cell Distribution Width-SD 43.9 fL; White Blood Count 7.6 K/mm3 (4.8-10.8)
[2025-01-14 11:27] LABS: Albumin Level 5.1 g/dl (3.5-5.0); Chloride 110 mmol/L (98-107); Potassium 4.3 mmoL/L (3.5-5.1); Sodium 144 mmol/L (136-145)
[2025-01-14 11:29] LABS: Blood Urea Nitrogen 17 mg/dl (7-17); Creatinine Clearance Estimated 76 mL/min (50-200); Creatinine,Serum 1.00 mg/dl (0.52-1.04); Estimated Glomerular Filt Rate 57 ml/min (>60); GFR (African American) 69 ML/MIN (>60)
[2025-01-14 11:30] LABS: Alanine Aminotransferase 40 U/L (12-78); Albumin/Globulin Ratio 1.5 (1.1-1.8); Alkaline Phosphatase 69 U/L (38-126); Anion Gap 17.3 mEq/L (5-15); Aspartate Amino Transferase 52 U/L (14-36); Bilirubin,Total 0.7 mg/dl (0.2-1.3); Calcium 10.5 mg/dl (8.4-10.2); Carbon Dioxide 21 mmol/L (22.0-30.0); Globulin 3.3 g/dL (1.3-3.2); Glucose 175 mg/dl (74-100); Magnesium 1.8 mg/dl (1.6-2.3); Total Protein,Serum 8.4 g/dl (6.3-8.2)
[2025-01-14] MEDS: LACTATED RINGERS 1000ML 1,000 ML 999 ML IV (11:31)
[2025-01-14] MEDS: MECLIZINE 25MG TABLET 25 MG PO (11:31)
[2025-01-14 11:34] VITALS: BP 137/99; PULSE 88; O2SAT 98
[2025-01-14 11:46] LABS: Troponin I < 0.01 ng/ml (0.00-0.034)
[2025-01-14] MEDS: IOPAMIDOL-370 (76%);100ML BOTTLE 80 ML IV (11:48)
[2025-01-14] MEDS: 0.9 % SODIUM CHLORIDE 50 ML VIAL IV (11:48)
[2025-01-14] MEDS: SODIUM CHLORIDE 0.9% 10ML SYR (RAD ONLY) 10 ML IV (11:49)
[2025-01-14 11:56] VITALS: BP 144/94; PULSE 66
[2025-01-14 12:03] LABS: Thyroid Stimulating Hormone 1.72 uIU/mL (0.465-4.68)
[2025-01-14 12:19] LABS: Hepatitis C Ab Qual. W/ RFX NEGATIVE (Negative)
--- NOTE | 2025-01-14 12:27 | PC.NURSE ---
pt reports improvement in symptoms after medication administration and fluids.
[2025-01-14 12:30] VITALS: BP 154/98; PULSE 80; O2SAT 97
--- NOTE | 2025-01-14 12:50 | PC.NURSE ---
pt has been made aware that UA is needed still.
[2025-01-14 13:00] VITALS: BP 145/98; PULSE 78; O2SAT 99
[2025-01-14 13:05] LABS: Microscopic, Urine URINE MICROSCOPIC (MICROSCOPIC)
[2025-01-14 13:10] LABS: Bilirubin,Urine Negative (Negative); Color,Urine YELLOW (Yellow); Glucose,Urine (UA) Negative (Negative); Ketones,Urine Negative (Negative); Leukocyte Esterase,Urine TRACE (Negative); PH,Urine 6.5 (5.0-8.5); Protein,Urine Negative (Negative); Specific Gravity, Urine 1.010 (1.005-1.030); Urobilinogen,Urine 0.2 EU/dl (0.2)
[2025-01-14 13:21] VITALS: BP 145/98; PULSE 78; RESP 16; TEMP 36.7; O2SAT 99
--- NOTE | 2025-04-05 10:47 | HMH.EDGENADL ---
Discharge Plan Disposition Patient Disposition: Home, Self-Care Condition: Fair Prescriptions Prescriptions: No Action sennosides [senna] 8.6 mg tablet 8.6 mg PO DAILY Qty: 30 2RF aspirin 81 mg tablet,delayed release (DR/EC) See Rx Instructions .ROUTE .COMPLEX Qty: 90 0RF Dose Instruction: TAKE 1 TABLET BY MOUTH ONCE DAILY FOR HEART HEALTH Rx Instructions: TAKE 1 TABLET BY MOUTH ONCE DAILY FOR HEART HEALTH atorvastatin 80 mg tablet See Rx Instructions .ROUTE .COMPLEX Qty: 90 1RF Dose Instruction: TAKE 1 TABLET BY MOUTH AT BEDTIME NIGHTLY Rx Instructions: TAKE 1 TABLET BY MOUTH AT BEDTIME NIGHTLY duloxetine 60 mg capsule,delayed release(DR/EC) See Rx Instructions .ROUTE .COMPLEX Qty: 180 1RF Dose Instruction: TAKE 1 CAPSULE BY MOUTH TWICE DAILY FOR PAIN Rx Instructions: TAKE 1 CAPSULE BY MOUTH TWICE DAILY FOR PAIN gemfibrozil 600 mg tablet 600 mg PO BID Qty: 180 0RF levetiracetam 750 mg tablet See Rx Instructions .ROUTE .COMPLEX Qty: 180 1RF Dose Instruction: Take 1 tablet by mouth twice daily Rx Instructions: Take 1 tablet by mouth twice daily levothyroxine 50 mcg tablet 50 mcg PO DAILY Qty: 90 0RF metformin 500 mg tablet See Rx Instructions .ROUTE .COMPLEX Qty: 180 1RF Dose Instruction: Take 1 tablet by mouth twice daily Rx Instructions: Take 1 tablet by mouth twice daily Ozempic 1 mg/dose (4 mg/3 mL) pen injector 1 mg SQ WEEKLY Qty: 9 10RF topiramate 25 mg tablet 25 mg PO BID Qty: 60 5RF meclizine 25 mg tablet 25 mg PO DAILY PRN (Reason: Nausea) Qty: 270 0RF fluticasone propionate [Flonase Allergy Relief] 50 mcg/actuation spray,suspension 2 spray intranasal DAILY Qty: 48 1RF Rx Instructions: administer into each nostril cyclobenzaprine 10 mg tablet 10 mg PO DAILY PRN (Reason: muscle relaxer) Qty: 180 0RF Linzess 72 mcg capsule 72 mcg PO DAILY Qty: 90 3RF pregabalin 100 mg capsule 100 mg PO BID Qty: 60 3RF Nurtec ODT 75 mg tablet,disintegrating See Rx Instructions .ROUTE .COMPLEX Qty: 8 5RF Dose Instruction: DISSOLVE 1 TABLET BY MOUTH EVERY OTHER DAY NEEDED FOR MIGRAINE Rx Instructions: DISSOLVE 1 TABLET BY MOUTH EVERY OTHER DAY NEEDED FOR MIGRAINE estradiol 0.01 % (0.1 mg/gram) cream See Rx Instructions vaginal .COMPLEX Qty: 42.5 2RF Rx Instructions: Using finger technique to apply 1gram daily for two weeks and then twice weekly vaginally (external use) loratadine [Allergy Relief (loratadine)] 10 mg tablet See Rx Instructions .ROUTE .COMPLEX Qty: 90 0RF Dose Instruction: Take 1 tablet by mouth once daily Rx Instructions: Take 1 tablet by mouth once daily Referrals Follow up/Referrals: Melissa Friend APRN [Primary Care Provider, Family Practice] - See instructions Activity Restrictions/Add. 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 Your new symptoms were likely just associated with chronic postural dizziness that you have had since your previous stroke but no new central abnormality was identified. Additionally your symptoms are not consistent with vertigo. You felt significantly better after IV fluids is possible that dehydration exacerbated this so please maintain appropriate hydration and return with any worsening of your symptoms. Clinical Impressions Clinical Impression: Postural dizziness Print Language Print Language: Romanian Discharge ED Provider: Mike Fischer General Adult HPI General Chief complaint: Dizziness Stated complaint: AO 01/14/25 0830, fell, high b/p, dizzy Time Seen by Provider: 01/14/25 11:05 Mode of Arrival: Ambulatory Source of Information: Patient Description of Symptoms (Recalled from ER Triage Doc. by RN): pt presents to ED with c/o dizziness, high blood pressure, and near fall this morning. pt reports that she woke up this am and had blood pressure reading of 150/101. pt reports that she had a near fall but her was able to catch her before she hit the floor. pt reports an episode of emesis after her near fall. no loc, pt did not hit her head. History of Present Illness HPI narrative: As Per nursing triage the patient felt dizzy and almost fell. Denies any vertiginous symptoms or other focal abnormalities such as weakness, ongoing coordination issues that are new, sensory deficits, visual disturbances etc. No infectious symptoms, chest pain, soa, etc. No injuries as her was able to brace her fall. Also c/o HTN. Related Data Previous Rx's ?Medication ?Instructions ?Recorded meclizine 25 mg tablet 25 mg PO DAILY PRN Nausea #270 tabs 09/08/23 fluticasone propionate 50 2 spray intranasal DAILY #48 grams 05/26/24 mcg/actuation nasal spray,suspension (Flonase Allergy Relief) sennosides 8.6 mg tablet (senna) 8.6 mg PO DAILY #30 tabs 08/17/24 cyclobenzaprine 10 mg tablet 10 mg PO DAILY PRN muscle relaxer 10/23/24 #180 tabs linaclotide 72 mcg capsule 72 mcg PO DAILY #90 caps 11/16/24 (Linzess) pregabalin 100 mg capsule 100 mg PO BID Pain #60 caps 01/18/25 rimegepant 75 mg disintegrating See Rx Instructions .Route 02/05/25 tablet (Nurtec ODT) .COMPLEX #8 tabs aspirin 81 mg tablet,delayed See Rx Instructions .Route 02/26/25 release .COMPLEX #90 tabs atorvastatin 80 mg tablet See Rx Instructions .Route 02/26/25 .COMPLEX #90 tabs duloxetine 60 mg capsule,delayed See Rx Instructions .Route 02/26/25 release .COMPLEX #180 ea gemfibrozil 600 mg tablet 600 mg PO BID Diabetes #180 tabs 02/26/25 levetiracetam 750 mg tablet See Rx Instructions .Route 02/26/25 .COMPLEX #180 tabs levothyroxine 50 mcg tablet 50 mcg PO DAILY #90 tabs 02/26/25 metformin 500 mg tablet See Rx Instructions .Route 02/26/25 .COMPLEX #180 tabs semaglutide 1 mg/dose (4 mg/3 mL) 1 mg (0.75 mL) SQ WEEKLY #9 mL 02/26/25 subcutaneous pen injector (Ozempic) topiramate 25 mg tablet 25 mg PO BID #60 tabs 02/26/25 estradiol 0.01% (0.1 mg/gram) See Rx Instructions vaginal 03/01/25 vaginal cream .COMPLEX #42.5 grams loratadine 10 mg tablet (Allergy See Rx Instructions .Route 04/02/25 Relief (loratadine)) .COMPLEX #90 tabs Allergies Allergy/AdvReac Type Severity Reaction Status Date / Time levofloxacin (LEVOFLOXACIN) Allergy Unknown Hives Verified 02/26/25 14:54 PFSH PFSH Disclaimer: The information contained in this section may have been updated after the patient was seen, as this information can be updated by other users. Medical History Recurrent UTI Balance problem Transient neurological symptoms Hypothyroidism Right homonymous hemianopsia History of nephrolithiasis Migraine Depression Hyperlipidemia Hypertension DM type 2 (diabetes mellitus, type 2) History of CVA (cerebrovascular accident) Obesity (BMI 30.0-34.9) Hypothyroidism Surgical History History of cholecystectomy Family History Other Cancer Coronary artery disease Diabetes Heart attack Hyperlipidemia Hypertension Hypothyroidism Social History (Reviewed 02/26/25 @ :54 by Litzy Hazel MA) Smoking Status: Never smoker alcohol intake: never substance use type: denies use current occupational status: disabled Travel in the last 8 weeks?: None household members: family housing: house Have you lived/traveled outside US in past 30 days?: No Contact w/someone who lives/traveled outside US past 30 days?: No Exposure to someone with infectious disease in past 14 days?: No Do you have a fever (greater than 100.4 F or 38 C)?: No Have you tested positive for COVID-19?: No Exposed to someone with COVID-19 in past 14 days?: No Do you have a sore throat?: No Do you have a cough?: No Do you have shortness of breath?: No Do you have a headache?: No Do you have any weakness?: No Are you experiencing any nausea/vomitting?: No Do you have any diarrhea?: No Are you experiencing any unusual bleeding?: No Do you have any muscle aches/pain?: No Do you have any abdominal pain?: No Are you experiencing loss of taste or smell?: No Other Medical History Have you received the Pneumonia Vaccine: Yes ROS Obtained: Yes All systems reviewed & no additional complaints except as documented Physical Exam General General appearance: alert and in no apparent distress Respiratory Respiratory exam: Present normal lung sounds bilaterally and respiratory distress Cardiovascular Cardiovascular exam: Present regular rate and normal rhythm Neurological Exam Neurological exam: Present alert, oriented X3, CN II-XII intact, normal gait and other (normal finger to nose heel to mcbride etc ); Absent motor sensory deficit Medical Decision Making Medical Records Screening: Per USPSTF and CDC recommendations, given the prevalence of disease in our region, it is our hospital?s policy to screen for HIV and viral Hepatitis for all patients aged 18 and over and those with ongoing risk factors. Jason Inquiry Pt receiving controlled substance: No Vital Signs: 01/14/25 10:55 01/14/25 11:34 01/14/25 11:56 Temperature 98.0 F Temperature Source Oral Pulse Rate 88 66 Pulse Rate [Left Radial] 98 H Respiratory Rate 19 Blood Pressure 137/99 H 144/94 H Blood Pressure [Right Arm] 132/97 H Blood Pressure Mean [Right Arm] 108 02 Sat by Pulse Oximetry 100 98 Oxygen Delivery Method Room Air Room Air 01/14/25 12:30 01/14/25 13:00 01/14/25 13:21 Temperature 98.0 F Temperature Source Pulse Rate 80 78 78 Pulse Rate [Left Radial] Respiratory Rate 16 Blood Pressure 154/98 H 145/98 H 145/98 H Blood Pressure [Right Arm] Blood Pressure Mean [Right Arm] 02 Sat by Pulse Oximetry 97 99 Oxygen Delivery Method Room Air Room Air Lab Data Lab results reviewed: Yes I reviewed the patient's lab results. Lab Results 01/14/25 10:47: WBC 7.6, RBC 5.54 H, Hgb 15.5, Hct 48.6 H, MCV 87.7, MCH 28.0, MCHC 31.9, RDW 13.8, Plt Count 288, MPV 10.9 H, Neut % (Auto) 69.2, Lymph % (Auto) 23.4, [place] % (Auto) 4.6, Eos % (Auto) 2.1, Baso % (Auto) 0.4, Neut # (Auto) 5.3, Lymph # (Auto) 1.8, [place] # (Auto) 0.4, Eos # (Auto) 0.2, Baso # (Auto) 0.0, Sodium 144, Potassium 4.3, Chloride 110 H, Carbon Dioxide 21 L, Anion Gap 17.3 H, BUN 17, Creatinine 1.00, Estimated Creat Clear 76, Estimated GFR 57 L, Est GFR ( Amer) 69, Glucose 175 H, Calcium 10.5 H, Magnesium 1.8, Total Bilirubin 0.7, AST 52 H, ALT 40, Alkaline Phosphatase 69, Troponin I < 0.01, Total Protein 8.4 H, Albumin 5.1 H, Globulin 3.3 H, Albumin/Globulin Ratio 1.5, TSH 1.72, HCV Ab NELA w/Rflx PCR Qn Negative, HIV Ag/Ab Combo Qual Negative 01/14/25 12:57: Urine Color Yellow, Urine Appearance Clear, Urine pH 6.5, Ur Specific [place] 1.010, Urine Protein Negative, Urine Glucose (UA) Negative, Urine Ketones Negative, Urine Blood Negative, Urine Nitrate Negative, Urine Bilirubin Negative, Urine Urobilinogen 0.2, Ur Leukocyte Esterase Trace, Urine WBC 3-5, Urine Bacteria None 01/14/25 10:47 01/14/25 10:47 Orders (Tests/Meds): ED MEDICATIONS Discontinued Medications Generic Name Dose Route Start Last Admin Trade Name Freq PRN Reason Stop Dose Admin Lactated Ringer's 1,000 mls @ 999 mls/hr 01/14/25 11:15 01/14/25 12:35 Lactated Ringer's 1000 Ml Bag IV 01/14/25 12:15 Infused .Q1H1M STELLA Infusion Iopamidol 80 ml 01/14/25 11:47 01/14/25 11:48 Iopamidol-370 (76%);100ml Bottle IV 01/14/25 11:48 80 ml ONCE ONE Administration Meclizine HCl 25 mg 01/14/25 11:15 01/14/25 11:31 Meclizine 25mg Tablet PO 01/14/25 11:16 25 mg ONCE ONE Administration Sodium Chloride 10 ml 01/14/25 11:47 01/14/25 11:49 Sodium Chloride 0.9% 10ml Syr (Rad Only) IV 02/13/25 11:46 10 ml NEEDED PRN Administration Maintain IV Site Sodium Chloride 50 ml 01/14/25 11:47 01/14/25 11:48 0.9 % Sodium Chloride 50 Ml Vial IV 01/14/25 11:48 50 ml ONCE ONE Administration ORDERS Category Date Time Status CT angio head Stat Cat Scan 01/14/25 11:[address] angio neck Stat Cat Scan 01/14/25 11:[address] head/brain wo con Stat Cat Scan 01/14/25 11:15 Completed CBC w/Auto Diff [Complete Blood Count Auto Diff] Stat Lab 01/14/25 10:47 Completed CMP [Comprehensive Metabolic Panel] Stat Lab 01/14/25 10:47 Completed HIV Combo Stat Lab 01/14/25 10:47 Completed Hepatitis C Ab Qual. W/ RFX Stat Lab 01/14/25 10:47 Completed Magnesium Stat Lab 01/14/25 10:47 Completed TSH [Thyroid Stimulating Hormone] Stat Lab 01/14/25 10:47 Completed Trop I [Troponin I] Stat Lab 01/14/25 10:47 Completed UA [Urinalysis and Microscopic] Stat Lab 01/14/25 12:57 Completed Medical Decision Narrative: Pt with above history. Given her presentation and complaints and her history of a previous CVA, Scans were ordered. I personally interpreted them and no acute abnormalities were found. She did have a chronically occluded left posterior cerebral artery which is consistent with her old stroke that she knew about. Her symptoms today were consistent with that old abnormality and no new findings were present. She has since that time had chronic postural dizziness since the last stroke and that likely was the cause of her sympotms. Additionally she significantly improved after IVF so there was likely a contributory component of dehydration that exacerbated her chronic abnormalities. Serial neuro exams were normal and improved. I do not beleive this was a TIA. No indication for transfer or admission for further stroke lao. She will continue her ASA and f/u closely outpatient. Labs otherwise unremarkable and patient discharged in an improved and stable condition. Critical Care Critical Care Time Critical Care Time: No
== END 2025-01-14 13:22 | disposition home or self-care (01) ==
PROVIDERS: Emergency Provider Student in an Organized Health Care Education/Training Program; PCP Nurse Practitioner
DX: R42 Dizziness and giddiness (principal); R11.2 Nausea with vomiting, unspecified; I10 Essential (primary) hypertension; E78.5 Hyperlipidemia, unspecified; E11.65 Type 2 diabetes mellitus with hyperglycemia; Z86.73 Personal history of transient ischemic attack (TIA), and cerebral infarction without residual deficits; Z79.84 Long term (current) use of oral hypoglycemic drugs
CPT/HCPCS: 70450; 70496; 70498; 80053; 81001; 83735; 84443; 84484; 85025; 86803; 87389; 93005; 96360; 99284; 99285; J7120; Q9967

== ENCOUNTER 2025-02-13 15:25 | Outpatient (CLI) | payer BC, SELFPAY ==
--- OUTSIDE RECORDS SUMMARY | 2025-02-13 15:27 | XMS_ITS | Encounter Summary ---
[facility] Address [address] [place] [address] Care Team Providers Care Hydroponics Worker Name Role Phone PhucMaurizioabbie Lee APRN Primary Care Provider [phone] Encounter Details Date Type Department Care Team (Late st Contact Info) Description 11/13/2024 Results Follow-Up [facility] [address] [place] [address] Kareen Batista DO [address] [place] [address] Social History Tobacco Use Types Packs/Day [...] Description 04/18/2025 3:30 PM EST Office Visit [facility] [address] [place] [address] Kareen Batista DO [address] [place] [address] documented as of this encounter Visit Diagnoses Not on filedocumented in this encounter Care Teams Hydroponics Worker Relationship Specialty Start Date End Date Melissa Friend APRN [address] [facility] [place] [address] PCP - General Nurse Practitioner 07/12/24 documented as of this encounter
--- OUTSIDE RECORDS SUMMARY | 2025-02-13 15:27 | XMS_ITS | Clinical Summary ---
[facility] [address] [place] [address] Care Team Providers Care Enrollment Management Manager Name Role Phone Melissa Friend APRN Primary Care Provider [phone] Allergies Active Allergy Reactions Criticality Noted Date [...] Department Care Team Description 11/13/2024 Results Follow-Up [facility] [address] [facility] [address] [place] [address] Kareen Batista DO from Last 3 Months [...] Description 04/18/2025 3:30 PM EST Office Visit [facility] [address] [place] [address] Kareen Batista, [address] [place] [address] Health Maintenance Due Date Last [...] 09/04/2024 09/05/2023 ANNUAL PHYSICAL 10/05/2024 INFLUENZA VACCINE 12/01/2024 03/08/2024, , 03/10/2022, Additional history exists HEPATITIS C SCREENING Completed 09/05/2023 Insurance I AND [employer] BLUE SHIELD PPO I AND [employer] PPO Care Teams Enrollment Management Manager Relationship Specialty Start Date End Date Melissa Friend APRN [address] [place] [address] PCP - General Nurse Practitioner 07/12/24
--- OUTSIDE RECORDS SUMMARY | 2025-02-13 15:27 | XMS_ITS | Encounter Summary ---
[facility] [address] [place] [address] Care Team Providers Care Magazine Feeder Name Role Phone PhucMaurizioabbie Lee APRN Primary Care Provider [phone] Encounter Details Date Type Department Care Team (Late st Contact Info) Description 10/30/2024 Telephone [facility] [address] [place] [address] Kareen Batista DO [address] [place] [address] [id number] Social History Tobacco Use Types Packs/Day Years [...] HOSPITAL ENDOCRINOLOGY [address] [place] [address] Kareen Batista DO [address] [place] [address] documented as of this encounter Visit Diagnoses Not on filedocumented in this encounter Care Teams Magazine Feeder Relationship Specialty Start Date End Date Melissa Friend APRN [address] [facility] [[email or web address] [place] [address] PCP - General Nurse Practitioner 07/12/24 documented as of this encounter
--- OUTSIDE RECORDS SUMMARY | 2025-02-13 15:27 | XMS_ITS | Clinical Summary ---
Author Organization [facility] Address [address] [place] [address] Care Team Providers Care Dba Manager Name Role Phone Melissa Friend SLAT GRADER Primary Care Provider [phone] Source Comments This information has been disclosed [...] therelease of HIV test results or diagnoses. [id number] Health Allergies Active [...] Type Department Care Team Description 11/29/2024 Telephone [facility] at [facility] [address] [facility] [address] [place] [address] Medhat Islas MD Medication Management [...] Screening 1970 Hepatitis C Screening (MyChart) 1968 Alcohol Misuse Screening 01/28/1986 HIV Screening 01/28/1986 Immunization: Hepatitis B (1 of 3 - 19+ 3-dose series) 01/28/1987 Immunization: DTaP/Tdap/Td ( 1 - Tdap) 07/07/1996 07/06/1996 Cervical Cancer Screening/Pa p Smear (MyChart) 01/28/1998 Mammogram (MyChart) 2008 Cologuard (FIT-DNA) 01/28/2013 Colonoscopy 01/28/2013 Colorectal Cancer Screening (MyChart) 01/28/2013 Stool Testing (gFOBT) 01/28/2013 Immunization: Zoster (1 of 2) 01/28/2018 Immunization: Pneumococcal ( 2 of 2 - PCV) 09/04/2021 09/04/2020 Depression Screening 12/26/2024 12/27/2023 Immunization: COVID-19 (2 - season) 2025 08/07/2020 Immunization: Influenza (MyC pierson) (#1) 2025 02/25/2023, 03/10/2022, 02/20/2021, Additional history exists Insurance [address] [place] [id number] BLUE ACCESS Care Teams Dba Manager Relationship Specialty Start Date End Date Melissa Friend NP [address] [facility] [address] [place] [address] PCP - General 10/11/23
--- NOTE | 2025-02-13 15:29 | CT_ITS ---
PROCEDURE INFORMATION: Exam: CT Abdomen And Pelvis Without Contrast Exam date and time: 02/13/2025 3:42 PM Age: 55 years old Clinical indication: Other: UTI TECHNIQUE: Imaging protocol: Computed tomography of the abdomen and pelvis without contrast. Radiation optimization: All CT scans at this facility use at least one of these dose optimization techniques: automated exposure control; mA and/or kV adjustment per patient size (includes targeted exams where dose is matched to clinical indication); or iterative reconstruction. COMPARISON: CR XR CHEST 2V 12/06/2023 1:36 PM FINDINGS: Lungs: Lung bases are unremarkable. Heart: Heart size is within normal limits. Dense coronary artery calcifications are present. No pericardial effusion. No pleural effusion. Diaphragm: No large hiatal hernia. Liver: Liver is enlarged. No suspicious mass or lesion within the liver. Lack of intravenous contrast limits evaluation. Liver surface is smooth. Gallbladder and biliary ducts: Post cholecystectomy. No intrahepatic ductal dilatation. Normal caliber of the common bile duct. Pancreas: The pancreas is unremarkable. Spleen: The spleen is unremarkable. Adrenal glands: The adrenal glands are unremarkable. Kidneys and ureters: Right kidney is unremarkable as visualized. No mass or stone seen. No hydronephrosis. Left kidney is unremarkable as visualized. No mass or stone seen. No hydronephrosis. The ureters appear unremarkable. No ureteral calculi. Minimal perinephric stranding is present on the right and left. Lack of intravenous contrast limits evaluation for pyelonephritis. Stomach and bowel: Stomach appears unremarkable. Small bowel loops are normal in caliber. There are a few scattered diverticula along the sigmoid colon. No evidence for acute colitis or acute diverticulitis. There are a few scattered diverticula along the descending colon. Moderate amount of stool is present within the colon. Appendix: Normal appendix. Intraperitoneal space: No significant peritoneal free fluid. No free peritoneal air. Vasculature: No infrarenal abdominal aortic aneurysm. Heavy peripheral calcified plaque along the infrarenal abdominal aorta . Scattered peripheral calcified plaque along the right and left iliac arteries. Lymph nodes: There are no enlarged or suspicious intra-abdominal, pelvic or retroperitoneal lymph nodes. Urinary bladder: The bladder appears unremarkable. No bladder wall nodularity or bladder calculus. Reproductive: Uterus and ovaries appear grossly unremarkable. Evaluation is limited by lack of intravenous contrast. Status post sterilization procedure. Bones/joints: Bilateral pars interarticularis defects are present at L4. Grade 1 anterolisthesis of L4 on L5. No acute fracture or suspicious bone lesion. Multilevel degenerative changes are present throughout the lower thoracic and lumbar spine. Multilevel degenerative facet arthropathy. No areas of severe central spinal canal stenosis. Multilevel neural foraminal narrowing. Mild osteoarthritic changes are present at the right and left hip joint. Soft tissues: Unremarkable. IMPRESSION: 1. No acute findings within the abdomen or pelvis. No focal inflammatory process or free fluid. 2. No hydronephrosis or hydroureter. There are no renal or ureteral calculi. No bladder calculi. Pyelonephritis can not be fully excluded with lack of intravenous contrast. 3. Mild hepatomegaly. 4. Status post prior cholecystectomy.
== END 2025-02-13 23:59 | disposition home or self-care (01) ==
LOC: RAD 15:26
PROVIDERS: PCP Nurse Practitioner; Visit Provider Physician Assistant
DX: N39.0 Urinary tract infection, site not specified (principal); R16.0 Hepatomegaly, not elsewhere classified; R93.5 Abnormal findings on diagnostic imaging of other abdominal regions, including retroperitoneum; Z90.49 Acquired absence of other specified parts of digestive tract
CPT/HCPCS: 74176

== ENCOUNTER 2025-02-26 14:00 | Outpatient (CLI) | payer BC, SELFPAY ==
[2025-02-27 04:41] LABS: Alanine Aminotransferase 43 U/L (12-78); Albumin Level 3.8 g/dl (3.5-5.0); Albumin/Globulin Ratio 1.2 (1.1-1.8); Alkaline Phosphatase 98 U/L (38-126); Anion Gap 16.5 mEq/L (5-15); Aspartate Amino Transferase 34 U/L (14-36); Bilirubin,Total 0.5 mg/dl (0.2-1.3); Blood Urea Nitrogen 19 mg/dl (7-17); Calcium 10.1 mg/dl (8.4-10.2); Carbon Dioxide 23 mmol/L (22.0-30.0); Chloride 106 mmol/L (98-107); Creatinine,Serum 0.90 mg/dl (0.52-1.04); Estimated Glomerular Filt Rate 65 ml/min (>60); GFR (African American) 78 ML/MIN (>60); Globulin 3.1 g/dL (1.3-3.2); Glucose 107 mg/dl (74-100); Potassium 4.5 mmoL/L (3.5-5.1); Sodium 141 mmol/L (136-145); Total Protein,Serum 6.9 g/dl (6.3-8.2)
[2025-02-27 05:07] LABS: Thyroid Stimulating Hormone 0.75 uIU/mL (0.465-4.68)
--- OUTSIDE RECORDS SUMMARY | 2025-02-27 13:14 | XMS_ITS | Clinical Summary ---
Author Organization [facility] Address [address] [place] [address] Care Team Providers Care Powder Room Attendant Name Role Phone Melissa Friend APRN Primary Care Provider [phone] Allergies Active Allergy Reactions Criticality Noted Date [...] 3 months w/ EEG Chronic ischemic left CORRESPONDENCE DICTATOR stroke 09/05/2023 Resolved Problems Problem Noted Date [...] week 09/08/2023 How often do you attend [facility] or synagogue services? More than 4 times per year 09/08/2023 Do you belong to any clubs o r organizations such as holiness groups, unions, fraternal or athletic groups, or [...] more drinks on one occasion? Never 09/08/2023 [facility] - [facility] [...] place to sleep or slept in a fci (including now)? No 09/07/2023 CAGE ASSESSMENT Answer [...] drink first t rupesh in the morning (EYE-KNOWLEDGE ARCHITECT) to steady your nerves or to get [...] 01/28/2018 UKY-Zoster Vaccines (1 of 2) 01/28/2018 [id number] Vaccine (2 - Shane risk series) 09/04/2020 [...] Reactive Non Reactive 09/05/2023 6:49 AM EDT [facility] Comment:Screening for HIV 1 & 2 antibodies, and P24 antigen is NONREACTIVE. No confirmatory testing is required. Blood Venous blood specimen / Unknown Venipuncture / Unknown 09/05/2023 5:47 AM EDT 09/05/2023 6:08 AM EDT Issa Mccracken MD LAB BLOOD ORDERABLES Final Result [facility] [address] [place] [address] * Hepatitis C Antibody - ED (09/05/2023 5:47 AM EDT) Hepatitis C Antibody Negative Negative 09/05/2023 6:50 AM EDT HEALTHCARE LAB Blood Venous blood specimen / Unknown Venipuncture / Unknown 09/05/2023 5:47 AM EDT 09/05/2023 6:08 AM EDT us Issa Mccracken MD LAB BLOOD ORDERABLES Final Result Performing Organization Address [facility] Co de Phone Number [facility] [address] [place] [address] * (ABNORMAL) Hemoglobin A1c (09/05/2023 5:47 AM EDT) Hemoglobin A1c 6.4(H) <5.7 % 09/05/2023 8:01 AM EDT [facility] Blood Venous blood specimen / Unknown [...] Adults <6.0% Children and Adolescents <7.5% Source: [place] [employer]. Standards of medical care in diabetes,2017. Diabetes Care.2017:40 (suppl 1):S1-S135. HbA1c assay performed by an ion-exchange chromatography method that is certified traceable to the DCCT. us Mushtaq Irene MD LAB BLOOD ORDERABLES Final Re sult Performing Organization Address City/[facility]/ZIP Co de Phone Number [facility] [address] [place] [address] * Cytology (03/14/2009 12:00 AM EST) Cerebrospinal fluid specimen (specimen) 03/14/2009 03/15/2009 9 :26 AM EST Narrative [facility] - 03/18/2009 11:22 AM EST [facility] MR #: [id number] [facility] [place] [id number] 1970 (Age: 39) FW Collect Date: 03/14/2009 00:00 Receipt Date: 03/15/2009 09:26 Page 1 DEPARTMENT OF PATHOLOGY AND LABORATORY MEDICINE CYTOPATHOLOGY REPORT Email: [email or web address] ATTENDING MD/Practitioner: Harjinder Curran MD Service: NANCY Location: 8S OTHER MD(S): Wallace Dhillon MD Reported: 03/18/2009 11:22 Collected: 03/14/2009 00:00 DIAGNOSIS A. CEREBROSPINAL FLUID: NO EVIDENCE OF MALIGNANCY. Electronically Signed Out FRANCES Cabrera(ASCP) Clement Sosa M.D. PROCEDURES/ADDENDA GROSS DESCRIPTION: 7 ml's clear fluid. CLINICAL INFORMATION: CLINICAL DIAGNOSIS Vasculitis SPECIMEN DESCRIPTION: A: CEREBROSPINAL FLUID CYTOSPIN x 2 ICD: 447.6 ARTERITIS NOS (VASCULITIS, NOS) F: [id number] EXVA/PAPI SNOMED CODES: A; [id number] A resident has participated in this service. [...] Patient has decision-making capacity? Yes Care Teams Powder Room Attendant Relationship Specialty Start Date End Date Melissa Friend APRN [address] [place] [address] PCP - General 09/05/23
--- OUTSIDE RECORDS SUMMARY | 2025-02-27 13:14 | XMS_ITS | Clinical Summary ---
Author Organization [facility] Address [address] [place] [address] Care Team Providers Care Machine Welt Butter Name Role Phone Melissa Friend APRN Primary Care Provider [phone] Allergies Active Allergy Reactions Criticality Noted Date [...] Mixed hyperlipidemia 10/05/2024 LYLE on CPAP 10/05/2024 Family History Medical History Relation Name Comments [...] Office Visit [facility] [address] [place] [address] Kareen Batista, DO [address] [place] [address] Health Maintenance Due Date Last [...] exists HEPATITIS C SCREENING Completed 09/05/2023 Insurance [employer] PPO Member Subscriber Plan / Payer (Ef fective 2020-Present) Name:Alfredo Wilddavid Chan Relation to Subscriber:Spouse Name:HUSSAIN WILD Date of :1961 (Home) Address: [address] [place] [address] Payer ID:[id number] (NAIC) Type:Not on file Address: [address] PPO Care Teams Machine Welt Butter Relationship Specialty Start Date End Date Melissa Friend APRN [address] [place] [address] PCP - General Nurse Practitioner 07/12/24
--- OUTSIDE RECORDS SUMMARY | 2025-02-27 13:14 | XMS_ITS | Encounter Summary ---
[facility] Address [address] [place] [address] Care Team Providers Care Health Science Specialist Name Role Phone PhucMaurizioabbie Lee APRN Primary Care Provider [phone] Encounter Details Date Type Department Care Team (Late st Contact Info) Description 10/30/2024 Telephone [facility] [address] [place] [address] Kareen Batista DO [address] [place] [address] [id number] Social History Tobacco Use Types Packs/Day Years [...] H[facility]PITAL [facility]CR[facility] [address] [place] [address] Kareen Batista DO [address] [place] [address] documented as of this encounter Visit Diagnoses Not on filedocumented in this encounter Care Teams Health Science Specialist Relationship Specialty Start Date End Date Melissa Friend APRN [address] [facility] [place] [address] PCP - General Nurse Practitioner 07/12/24 documented as of this encounter
--- OUTSIDE RECORDS SUMMARY | 2025-02-27 13:14 | XMS_ITS | Encounter Summary ---
[facility] Address [address] [place] [address] Care Team Providers Care Film Processing Utility Worker Name Role Phone PhucMaurizioabbie Lee APRN Primary Care Provider [phone] Encounter Details Date Type Department Care Team (Late st Contact Info) Description 11/13/2024 Results Follow-Up [facility] [address] [place] [address] Kareen Batista DO [address] [place] [address] Social History Tobacco Use Types Packs/Day [...] Description 04/18/2025 3:30 PM EST Office Visit [facility] [address] [place] [address] Kareen Batista DO [address] [place] [address] documented as of this encounter Visit Diagnoses Not on filedocumented in this encounter Care Teams Film Processing Utility Worker Relationship Specialty Start Date End Date Melissa Friend APRN [address] [facility] [address] PCP - General Nurse Practitioner 07/12/24 documented as of this encounter
--- OUTSIDE RECORDS SUMMARY | 2025-02-27 13:15 | XMS_ITS | Data Portability ---
Author Organization [place] [facility] BARRIE Ponce [place] CLOSED Address [address] [place] [address] Care Team Providers Care Commodities Broker Name Role Phone MILAGROS JOSÉ Primary Care [...] prevention. Will try to get records from [facility] on the or CTA done in the last 2 years - may need referral to vascular surgery FU with the neurologist in [email or web address] Not available 02/04/2023 15:54:03 Plan of Treatment Reminders Order Date Submit Date Provider Last Modified By Organization Details Last Modified Time Details Appointments None recorded. Lab glucose, fingerstic k, blood 2022 023 [facility], [facility] [place], [address], 3 15:44:42 hemoglobin A1C, fingerstic k 2022 023 [facility], [address] [place], [address], 3 15:44:42 TSH, serum or plasma 2022 023 [facility], [address] [place] [address], [address], 3 16:58:13 T4, free, serum 2022 023 [facility], [address] [place] [address], [address], 3 16:58:11 glucose, fingerstic k, blood 2022 023 [facility], [address] [place] [address], [address], 3 14:51:34 hemoglobin A1C, fingerstic k 2022 023 [facility], [address] [place] [address], [address], 3 14:51:35 microalbum in/creatin ine, mass ratio, urine 2022 023 [facility], [address] [place] [address], [address], 3 15:56:13 BMP, serum or plasma 2022 023 [facility], [address] [place] [address], [address], 3 15:55:28 TSH, serum or plasma 2022 023 [facility], [address] [place] [address], [address], 3 15:59:57 T4, free, serum 2022 023 [facility], [address] [place] [address], [address], 3 15:59:59 lipid panel, serum 2022 023 [facility], [address] [place] [address], [address], 3 15:55:30 hepatic function panel, serum 2022 023 [facility], [address] [place] [address], [address], 3 15:55:31 Referral sleep medicine referral 2022 023 [email or web address] 3 Jami Jacobs PA-C, [address], [address], 3 09:38:46 Procedures None recorded. Surgeries None recorded. Imaging None recorded. Medication Orders Ozempic 0.25 mg or 0.5 mg (2 mg/3 mL) subcutaneo us pen injector 2022 023 [facility], [address] [place] [address], [place], [address], 3 15:02:16 metformin ER 500 mg tablet,ext ended release 24 hr 2022 023 [facility], [address] [place] [address], [place], [address], 3 15:02:12 Patient TargetsNo targets recorded. Patient Instructions Encounter Date Encounter Id Patient Instructions Last Modified By Organization Details Last Modified Time 09/02/2016 [id number] sleep apnea: car e instructions Not available 09/03/2016 14:44:16 transient ischemic attack: care instructions Not available 09/03/2016 14:44:16 high blood pressure: care instructions [email or web address] Not available 09/03/2016 14:44:16 learning about high blood pressure [email or web address] Not available 09/03/2016 14:44:16 high cholesterol : care instructions [email or web address] Not available 09/03/2016 14:44:16 CC: Jeanine CHER José [email or web address] Not available 09/02/2016 10:38:22 02/04/2023 [id number] medical record request* [email or web address] Not available 02/11/2023 08:00:26 Reason for Referral Sleep Medicine Referral for Obstructive sleep apnea syndrome Referring Physician: Laine Hannon, Neurology, Encounter Date: 02/04/2023 Results Created Date Observation Date Name Description Value Unit Range Abnormal Flag Note LastModifiedBy Organization Detail LastModifiedTime 09/24/19 23 09/23/2022 BASIC METAB OLIC PANEL glucose 124 mg/dL 74-100 high Not Available [facility] [address] [place] [address], [address], 09/23/2022 15:55:28 09/24/19 23 09/23/2022 BASIC METAB OLIC PANEL blood urea nitrogen 25 mg/dL 6-20 high Not Available [facility] [address] [place] [address], [address], 09/23/2022 15:55:28 09/24/19 23 09/23/2022 BASIC METAB OLIC PANEL creatinine 0.77 mg/dL 0.50-0 .95 normal Not Available [facility] [address] [place] [address], [address], 09/23/2022 15:55:28 09/24/19 23 09/23/2022 BASIC METAB OLIC PANEL BUN/creatini ne ratio 32 (calc ) 10-20 high Not Available [facility] [address] [place] [address], [address], 09/23/2022 15:55:28 09/24/19 23 09/23/2022 BASIC METAB OLIC PANEL sodium 142 mmol/ L 136-14 5 normal Not Available [facility] [address] [place] [address], [address], 09/23/2022 15:55:28 09/24/19 23 09/23/2022 BASIC METAB OLIC PANEL potassium 4.5 mmol/ L 3.4-5. 0 normal Not Available [facility] [address] [place] [address], [address], 09/23/2022 15:55:28 09/24/19 23 09/23/2022 BASIC METAB OLIC PANEL chloride 104 mmol/ L 98-107 normal Not Available [facility] [address] [place] [address], [address], 09/23/2022 15:55:28 09/24/19 23 09/23/2022 BASIC METAB OLIC PANEL carbon dioxide 25 mmol/ L 22-31 normal Not Available [facility] [address] [place] [address], [address], 09/23/2022 15:55:28 09/24/19 23 09/23/2022 BASIC METAB OLIC PANEL anion gap 13 (calc ) 7-25 normal Not Available [facility] [address] [place] [address], [address], 09/23/2022 15:55:28 09/24/19 23 09/23/2022 BASIC METAB OLIC PANEL calcium 11.0 mg/dL 8.6-10 .2 high Not Available [facility] [address] [place] [address], [address], 09/23/2022 15:55:28 09/24/19 23 09/23/2022 BASIC METAB OLIC PANEL GFR 91 >= 60 normal NOT E New calcu latio n for GFR (CKD- EPI 2020) is formu lated witho ut race adjus tment facto rs at the recom menda tion of the Hodan Benavidez y Matt atmyranda and Kennedy miller [employer]ie ty of Nephr ology . This calcu latio n has not been valid ated in pregn ant women . For pedia tric patie nts refer to https ://jose g hernandez.alberto rg/pr ofess ional s/KDO QI/gf r_cal culat orPed Not Available [facility] [address] [place] [address], [address], 09/23/2022 15:55:28 09/24/1909/23/2022 LIPID PROFI LE HDL cholesterol 40 mg/dL 50-242 low Not Available [facility] [address] [place] [address], [address], 09/23/2022 15:55:29 09/24/19 23 09/23/2022 LIPID PROFI LE triglyceride s 183 mg/dL 0-149 high TRIGL YCERI DE RANGE S ANNA MARIE L: < 150 BORDE RLINE HIGH: 150 - 199 HIGH: 200 - 499 VERY HIGH: > OR = 500 Not Available [facility] [address] [place] [address], [address], 09/23/2022 15:55:29 09/24/1909/23/2022 LIPID PROFI LE cholesterol 128 mg/dL 0-199 normal HOOD STERO L (TOTA L) RANGE S MASON ABLE: < 200 BORDE RLINE : 200 - 239 HIGHE R RISK: > 239 Not Available [facility] [address] [place] [address], [address], 09/23/2022 15:55:29 09/24/1909/23/2022 LIPID PROFI LE LDL cholesterol 51 mg/dL _(carrol c) 0-99 normal LDL HOOD STERO L RANGE S OPTIM AL: < 100 NEAR/ ABOVE OPTIM AL: 100 - 129 BORDE RLINE HIGH: 130 - 159 HIGH: 160 - 189 VERY HIGH: > OR = 190 Not Available [facility] [address] [place] [address], [address], 09/23/2022 15:55:29 09/24/1909/23/2022 HEPAT IC (LIVE R) PANEL AST 31 U/L 0-32 normal Not Available [facility] [address] [place] [address], [address], 09/23/2022 15:55:31 09/24/19 23 09/23/2022 HEPAT IC (LIVE R) PANEL ALT 28 U/L 0-33 normal Not Available [facility] [address] [place] [address], [address], 09/23/2022 15:55:31 09/24/19 23 09/23/2022 HEPAT IC (LIVE R) PANEL alkaline phosphatase 77 U/L 30-121 normal Not Available [facility] [address] [place] [address], [address], 09/23/2022 15:55:31 09/24/19 23 09/23/2022 HEPAT IC (LIVE R) PANEL total protein 8.3 g/dL 6.4-8. 3 normal Not Available [facility] [address] [place] [address], [address], 09/23/2022 15:55:31 09/24/19 23 09/23/2022 HEPAT IC (LIVE R) PANEL albumin 5.0 g/dL 3.5-5. 2 normal Not Available [facility] [address] [place] [address], [address], 09/23/2022 15:55:31 09/24/19 23 09/23/2022 HEPAT IC (LIVE R) PANEL bilirubin, total 0.3 mg/dL 0.1-1. 2 normal Not Available [facility] [address] [place] [address], [address], 09/23/2022 15:55:31 09/24/19 23 09/23/2022 HEPAT IC (LIVE R) PANEL bilirubin, direct <0.2 mg/dL 0.0-0. 3 normal Not Available [facility] [address] [place] [address], [address], 09/23/2022 15:55:31 09/24/19 23 09/23/2022 HEPAT IC (LIVE R) PANEL bilirubin, indirect see below mg/dL _(carrol c) 0.0-1. 0 normal Unabl e to calcu late Indir ect Bilir ubin. Not Available [facility] [address] [place] [address], [address], 09/23/2022 15:55:31 09/24/19 23 09/23/2022 MICRO ALBUM IN/CR EAT RATIO microalbumin , random 76 mg/L 0-19 high Not Available [facility] [address] [place] [address], [address], 09/23/2022 15:56:13 09/24/19 23 09/23/2022 MICRO ALBUM IN/CR EAT RATIO creatinine,u r,random 105 mg/dL normal NO ANNA MARIE L RANGE ESTAB LISHE D FOR RANDO M URINE . Not Available [facility] [address] [place] [address], [address], 09/23/2022 15:56:13 09/24/19 23 09/23/2022 MICRO ALBUM IN/CR EAT RATIO MA/creatinin e ratio 72 mcg/m g_cre at 0-29 high Not Available [facility] [address] [place], [address], 09/23/2022 15:56:13 09/24/19 23 09/23/2022 TSH TSH 0.183 u[IU] /mL 0.270- 4.200 low Not Available [facility] [address] [place] [address], [address], 09/23/2022 15:59:57 09/24/19 23 09/23/2022 T4,FR EE T4,free 1.49 NG/dL 0.93-1 .70 normal Not Available [facility] [address] [place] [address], [address], 09/23/2022 15:59:59 09/24/19 23 09/23/2022 hemog lobin A1C, finge rstic k hemoglobin A1C % 7.4 % 4.0 - 5.6 Not Available [facility] [address] [place] [address], [address], 09/23/2022 14:33:14 09/24/19 23 09/23/2022 gluco se, finge rstic k, blood glucose, fingerstick 133 mg/dL 70 - 100 Not Available [facility] [address] [place], [address], 09/23/2022 14:32:58 01/15/20 23 01/14/2023 T4,FR EE T4,free 1.15 NG/dL 0.93-1 .70 normal Not Available [facility] [address] [place] [address], [address], 01/14/2023 16:58:11 01/15/20 23 01/14/2023 TSH TSH 1.800 u[IU] /mL 0.270- 4.200 normal Not Available [facility] [address] [place] [address], [address], 01/14/2023 16:58:13 01/15/20 23 01/14/2023 hemog lobin A1C, finge rstic k hemoglobin A1C % 7.0 % 4.0 - 5.6 Not Available [facility] [address] [place] [address], [address], 01/14/2023 15:14:24 01/15/20 23 01/14/2023 gluco se, finge rstic k, blood glucose, fingerstick 160 mg/dL 70 - 100 Not Available [facility] [address] [place], [address], 01/14/2023 15:07:11 02/06/20 23 06/12/2022 US, carot id arter y No observ ation record ed. [address] (Med Record) [address], [place], [place], [address], 02/05/2023 10:50:23 Result Notes None recorded. Problems Name Problem SNOMED Code Status Onset Date Resolution Date Notes Provider Name and Address Organization Details Recorded Time Transient cerebral ischemia 608719300 Active 2015 From Automated Load;Provi jenny: Lakesha Samuels;Stat us: Active Sabrina Pierre [facility] 9 07:40:40 Disorder of nervous system due to type 2 diabetes mellitus 930491494 Active 2015 From Automated Load;Provi jenny: Lakesha Samuels;Stat us: Active Sabrina Pierre [facility] 9 07:40:40 Hypertensi ve disorder 53237878 Active 2015 From Automated Load;Provi jenny: Lakesha Samuels;Stat us: Active Sabrina Pierre [facility] 9 07:40:40 Hyperlipid emia 96282551 Active 2015 From Automated Load;Provi jenny: Lakesha Samuels;Stat us: Active Sabrina Pierre [facility] 9 07:40:40 Problem Notes None recorded. Procedures Surgical History Date Name Laterality Status Provider Name and Address Organization Details Recorded Time Cholecystectomy completed Deena mcmillan [facility] 09/02/2016 08:46:36 Other completed Deena Milton [facility] 09/02/2016 08:46:42 Imaging Results None recorded. Procedure Notes None recorded. Medical Equipment None Reported. Allergies Allergen ID Allergen Name Allergen Category Reaction Reaction Severity Criticality Documentation Date Start Date Code Code System Note Provider Name and Address Organization Details Recorded Time 691739 Levaquin medicatio n itching Not available Not available 03/27/20162008 13801 2 RxNorm React ion: ITCHI NG; Comme nt: Creat ed By: Jacqui Mckeon praveena Date: 009 3:23: 03 PM; Not Available [facility] 6 05:33:05 Medications Name Sig Start Date [...] -insulin regular; Dosage:a s directed ; [facility]; refills: 0; Quantity :1 Not Available [...] Details Last Updated DateTime 09/02/2016 157.48 cm 62977.33 g 35.3 kg/m2 95 /min 134/94 mm[Hg] Deena Milton [facility] 7 10:02:31 Date Recorded Body weight Heart rate Systolic And Diastolic Provider Name and Address Organization Details Last Updated DateTime 09/23/2022 73237.03 g 86 /min 146/86 mm[Hg] Zoe Brown [facility] 09/23/2022 14:31:42 Date Recorded Body weight Body mass index (BMI) Body height Heart rate Systolic And Diastolic Provider Name and Address Organization Details Last Updated DateTime 01/14/2023 00780.18 g 36.3 kg/m2 152.4 cm 82 /min 140/82 mm[Hg] Irma Alejandro [facility] 3 15:09:12 Date Recorded Body height Body mass index (BMI) Body weight Heart rate Oxygen saturation Oxygen saturation in Arterial blood by Pulse oximetry Systolic And Diastolic Provider Name and Address Organization Details Last Updated DateTime 3 152.4 cm 36.9 kg/m2 81606.9 6 g 70 /min 97 % 97 % 122/80 mm[Hg] Nora Leon [facility] 3 14:45:12 Social History Question Answer Notes LastModified by Organizat ion Details LastModified Time Tobacco Smoking Status Never Smoker Deena jones [facility] 09/02/2016 08:46:26 Live Alone Or With Others? With Others Information not available 09/02/2016 Marital Status Informat ion not available 09/02/2016 Sex: Unknown Functional Status Question Answer Note LastModified by Organizat ion Details LastModified Time What is your level of alcohol consumption? None Information not available 09/02/2016 What is your occupation? Unemployed [employer] Information not available 09/02/2016 Mental Status None recorded. Family History Relationship Description Onset Age of this Age Resolved Age Notes LastModified by Organization Details LastModified Time Father [facility] history of malignant [facility] Not available 07/2016 08:45:56 Father Hypertensive disorder [email or web address] Not available 07/2016 08:46:06 Father Parkinson's disease [facility] Not available 07/2016 08:46:10 Mother Diabetes mellitus [email or web address] Not available 07/2016 08:46:00 Mother Cerebrovascu lar accident [facility] Not available 09/02/2016 08:46:16 Maternal Grandmother Diabetes mellitus [facility] Not available 07/2016 08:46:00 Medical History Condition Response Diabetes Y Stroke Y Hypertension Y Depression Y High Cholesterol Y Gynecological HistoryNo gynecological history recorded. Obstetrics History GPAL:G 0 P 0 0 0 0 Past Encounters Encounter ID Performer Location Encounter Start Date Encounter Closed Date Diagnosis/Indication Diagnosis SNOMED-CT Code Diagnosis ICD10 Code Diagnosis IMO Codes Diagnosis Note [id number] LAKESHA SAMUELS MD NEUROLOGY [facility] [address] [place] [address] 09/02/2016 09:09:14 09/02/2016 11:05:57 Transient cerebral ischemia 595731494 G45.9 New TIA, 02/27/16 with R sided numbness, w/u at [facility] reportedly negative incuding MRI. She has multiple vascular risk factors including diabetes, hypertensi on, hyperlipid emia, obesity, LYLE and previous stroke. 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 [...] PRN CC: Jeanine José APRN Essential hypertension 61013274 I10 see abpve Hyperlipidemia 80192027 E78.5 Diabetes mellitus 486385 09 E11.49 Obstructiv e sleep apnea syndrome 67005589 G47.33 [id number] IVAN MORALES MD ENDOCRINO [facility] [address] [place] [address] 09/23/2022 14:17:51 09/23/2022 15:07:26 Uncontrolled type 2 diabetes mellitus 546018696 E11.65 A1c of 7.4 in the office [...] of carbohydra te per meal and 15 3 0 grams per snack if needed.Rec ommended to [...] months average [goal A1c] < 7 Hyperlipidemia 71606101 E78.5 LDL, direct above goalRechec k lipid panel and LFTs todayCouns eled about the importance of low-choles terol low saturated fat dietContin ue current gemfibrozi l as well as statin therapy Hypothyroidism 17227164 E03.9 TSH of 0.21 in January2Dose decreased to her current dose of levothyrox ine 75 mcgRecheck TSH and free T4 levels todayFurth er adjustment as appropriat ePatient verbalized understand ing and agreed with the above mentioned plan of care. [id number] IVAN MORALES MD ENDOCRINO [facility] [address] [place] [address] 01/14/2023 15:02:14 01/14/2023 16:16:28 Uncontrolled type 2 diabetes mellitus 789017621 E11.65 A1c of 7% down from 7.4 [...] months average [goal A1c] < 7 Hypothyroidism 10474841 E03.9 TSH of 0.21 in January2Dose decreased to her current dose of levothyrox ine 50 mcgRecheck TSH and free T4 levels todayFurth er adjustment as appropriat ePatient verbalized understand ing and agreed with the above mentioned plan of care. [id number] LAINE HANNON MD NEUROLOGY [facility] [address] [place] [address] 02/04/2023 14:30:03 02/05/2023 04:20:25 Migraine 19775010 G43.909 Obstructiv e sleep apnea syndrome 83210282 G47.33 Carotid ar golden stenosis 91061842 I65.29 Health Concerns Section Related Observation LastModified by Organization Detai ls LastModified Time None Recorded Concern Status LastModified by Organization Details LastModified Time None Recorded Advance Directives Directive None Recorded Payers Insurance Date Sequence Insurance Name Policy Number Policy Black Covered Member ID Black Member ID Guarantor Name 01/14/2023 1 [place] [id number] Robert Wild [id number] Elenita Wild 07/12/2023 1 [place] [id number] Robert Wild [id number] Elenita Wild Notes Date Note Type [...] P1 and P2 segments of the R [employer], no major branch oculsion or severe stenosis [...] elevated LE, + squames. Impression of the [facility] team was that although pt has h/o vasculitis from 2008 demonstarted on CTA, she now has prominent artheroscloerotic disease. They interpreted her symptomss as amnestic sx of old L [employer] stroke. I am concerned that moderate stenosis L ICA referable to symptoms of R sided numbness. In her history, sypmtoms were clearly not amnestic of the remote stroke but new and transient symptoms. Labs 04/01/17ESR - 13ANA - NEGATIVEAngiotensin Convert.Enzyme - 3 (L)ANCA - NEGATIVE LAKESHA SAMUELS MD [address] [place] [address], [address], [facility] 09/02/2016 10:40:41 3 text/html 52-year-old female with [...] Diabetes related eye disease: Previously seen at [facility]. 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 No meter provided today Hypoglycemia: None by history Exercise/activity: Diet: Number of daily meals: Excess carbs consumption: noTakes levothyroxine 75 mcg every a.m. dose IVAN MORALES MD [address] [place] [address], [address], [facility] 09/23/2022 15:04:22 3 text/html 52-year-old female with [...] Tania ALVAREZIn the office accompanied by her daughterDiabetes history:Onset of diabetes: Diabetic for about 12 yearsMother and grandmother with diabetesCurrent diabetes regimen:st 6 yearsOral medications:Metformin 500 mg ER 2 tablets dailyOzempic 0.25 mg subcu weekly. Unable to increase her dose because reported having hypoglycemia in the 50s with increasing Ozempic to 0.5Diabetes related complications:Diabetes related eye disease: Previously seen at [facility].Diabetes related kidney disease: History of kidney stoneDiabetic neuropathy: Peripheral diabetic neuropathyDiabetic macro-vascular disease: Yes history of CVA and residual right-sided hemiparesisSelf monitoring of blood glucose: No glucose meter provided today Takes levothyroxine 50 mcg down from 75 mcg every a.m. dose IVAN MORALES MD [address] [place] [address], [address], [facility] 01/14/2023 15:46:04 3 text/html ROS as noted in the HPI 53 yo new pt here today with muscle weakness referred by Mushtaq Brice, MDPreviously saw Dr. 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 Then TIA, 02/27/16 with R sided numbness.No imaging in [facility] only for blood thinning Has seen a neurologist in [facility][1] and they told her that her carotid [...] day, no napping LAINE HANNON MD [address] [place], [address], [facility] 02/05/2023 08:17:42 OBGyn Episode No OBEpisode recorded.
== END 2025-02-26 23:59 | disposition home or self-care (01) ==
LOC: LAB.DROPOF 02-27 12:47
PROVIDERS: PCP Family Medicine; Visit Provider Family Medicine
DX: E03.9 Hypothyroidism, unspecified (principal); I10 Essential (primary) hypertension; E11.9 Type 2 diabetes mellitus without complications; N39.0 Urinary tract infection, site not specified
CPT/HCPCS: 80053; 84443; 87086

== ENCOUNTER 2025-04-18 10:40 | Outpatient (CLI) | payer BC, SELFPAY ==
--- OUTSIDE RECORDS SUMMARY | 2025-04-18 20:43 | XMS_ITS | Clinical Summary ---
Author Organization [facility] Address [address] [place] [id number] Care Team Providers Care Cnc Service Engineer Name Role Phone Melissa Friend HANDS PARTER Primary Care Provider [phone] Source Comments This information has been disclosed [...] therelease of HIV test results or diagnoses. [id number] Health Allergies Active Allergy Reactions Criticality Noted [...] 02/25/2023, 03/10/2022, 02/20/2021, Additional history exists Insurance BLUE ACCESS Care Teams Cnc Service Engineer Relationship Specialty Start Date End Date Melissa Friend NP [address] [facility] [address] [place] [id number] PCP - General 10/11/23
--- OUTSIDE RECORDS SUMMARY | 2025-04-18 20:43 | XMS_ITS | Clinical Summary ---
[facility] Address [address] [place] [address] Care Team Providers Care Flavorer Name Role Phone Melissa Friend APRN Primary Care Provider [phone] Allergies Active Allergy Reactions Criticality Noted Date [...] 10/05/2024 1:00 PM EDT Plan of Treatment Health Maintenance Due Date Last Done Comments Annual Gynecologic Pelvic an d Breast Exam 1968 PAP SMEAR 01/28/1989 TDAP/TD VACCINES (1 - Tdap) 07/07/1996 07/06/1996 MAMMOGRAM 2008 COLOGUARD 01/28/2013 COLON CANCER [...] exists HEPATITIS C SCREENING Completed 09/05/2023 Insurance PPO Member Subscriber Plan / Payer (Ef fective 2020-Present) Name:Elenita Widl Relation to Subscriber:Spouse Name:BILLYHUSSAIN Date of :1961 (Home) Address: [address] [place] [address] Payer ID:[id number] (IC) Type:Not on file Address: [address] PPO Care Teams Flavorer Relationship Specialty Start Date End Date Melissa Friend APRN [address] [place] [id number] PCP - General Nurse Practitioner 07/12/24
--- OUTSIDE RECORDS SUMMARY | 2025-04-18 20:43 | XMS_ITS | Encounter Summary ---
[facility] Address [address] [place] [address] Care Team Providers Care Panelbeater Name Role Phone Melissa Friend APRN Primary Care Provider [phone] Encounter Details Date Type Department Care Team (Late st Contact Info) Description 10/30/2024 Telephone [facility] ENDOCR[facility]OLOG[facility] [address] [place] [address] Kareen Batista, [address] [place] [address] Social History Tobacco Use Types Packs/Day Years [...] as of this encounter Plan of Treatment Not on file documented as of this encounter Visit Diagnoses Not on filedocumented in this encounter Care Teams Panelbeater Relationship Specialty Start Date End Date Melissa Friend APRN [address] [place] [id number] PCP - General Nurse Practitioner 07/12/24 documented as of this encounter
--- OUTSIDE RECORDS SUMMARY | 2025-04-18 20:43 | XMS_ITS | Encounter Summary ---
[facility] Address [address] [place] [address] Care Team Providers Care Special Service Representative Name Role Phone Melissa Friend APRN Primary Care Provider [phone] Encounter Details Date Type Department Care Team (Late st Contact Info) Description 11/13/2024 Results Follow-Up [facility] END[facility]CR[facility]OLOGY [address] [place] [id number] Kareen Batista, [address] [place] [address] Social History Tobacco Use Types Packs/Day Years [...] on filedocumented in this encounter Care Teams Special Service Representative Relationship Specialty Start Date End Date Melissa Friend APRN [address] [place] [id number] PCP - General Nurse Practitioner 07/12/24 documented as of this encounter
--- OUTSIDE RECORDS SUMMARY | 2025-04-18 20:43 | XMS_ITS | Data Portability ---
Author Organization JOHNATHAN [facility] BARRIE Ponce [place] CLOSED Address [address] [place] [address] Care Team Providers Care Barber Name Role Phone MILAGROS JOSÉ Primary Care [...] try to get records from [facility] on the or CTA done in the last 2 years - may need referral to vascular surgery FU with the neurologist in [email or web address] Not available 02/04/2023 15:54:03 Plan of Treatment Reminders Order Date Submit Date Provider Last Modified By Organization Details Last Modified Time Details Appointments None recorded. Lab glucose, fingerstic k, blood 2022 023 [facility], [facility] [place], [address], 3 15:44:42 hemoglobin A1C, fingerstic k 2022 023 [facility], [address] [place], [address], 3 15:44:42 TSH, serum or plasma 2022 023 [facility], [address] [place] [address], [address], 3 16:58:13 T4, free, serum 2022 023 [facility], [address] [place] [address], [address], 3 16:58:11 glucose, fingerstic k, blood 2022 023 [facility], [address] [place] [address], [address], 3 14:51:34 hemoglobin A1C, fingerstic k 2022 023 [facility], [address] [place] [address], [address], 3 14:51:35 microalbum in/creatin ine, mass ratio, urine 2022 023 [facility], [address] [place] [address], [address], 3 15:56:13 BMP, serum or plasma 2022 023 [facility], [address] [place] [address], [address], 3 15:55:28 TSH, serum or plasma 2022 023 [facility], [address] [place] [address], [address], 3 15:59:57 T4, free, serum 2022 023 [facility], [address] [place] [address], [address], 3 15:59:59 lipid panel, serum 2022 023 [facility], [address] [place] [address], [address], 3 15:55:30 hepatic function panel, serum 2022 023 [facility], [address] [place] [address], [address], 3 15:55:31 Referral sleep medicine referral 2022 023 [email or web address] 3 Jami Jacobs PA-C, [facility] [address], [address], 3 09:38:46 Procedures None recorded. Surgeries None recorded. Imaging None recorded. Medication Orders Ozempic 0.25 mg or 0.5 mg (2 mg/3 mL) subcutaneo us pen injector 20[address] [facility], [address], [place], [address], 3 15:02:16 metformin ER 500 mg tablet,ext ended release 24 hr 2022 023 [facility], [address], [place], [address], 3 15:02:12 Patient TargetsNo targets recorded. Patient Instructions Encounter Date Encounter Id Patient Instructions Last Modified By Organization Details Last Modified Time 09/02/2016 [id number] sleep apnea: car e instructions [email or web address] Not available 09/03/2016 14:44:16 transient ischemic attack: care instructions [email or web address] Not available 09/03/2016 14:44:16 high blood pressure: care instructions [email or web address] Not available 09/03/2016 14:44:16 learning about high blood pressure [email or web address] Not available 09/03/2016 14:44:16 high cholesterol : care instructions [email or web address] Not available 09/03/2016 14:44:16 CC: Jeanine AmnaCHER [email or web address] Not available 09/02/2016 10:38:22 02/04/2023 [id number] medical record request* [email or web address] Not available 02/11/2023 08:00:26 Reason for Referral Sleep Medicine Referral for Obstructive sleep apnea syndrome Referring Physician: Laine Hannon, Neurology, Encounter Date: 02/04/2023 Results Created Date Observation Date Name Description Value Unit Range Abnormal Flag Note LastModifiedBy Organization Detail LastModifiedTime 09/24/19 23 09/23/2022 BASIC METAB OLIC PANEL glucose 124 mg/dL 74-100 high Not Available [facility] [address] [place] [address], [address], 09/23/2022 15:55:28 09/24/19 23 09/23/2022 BASIC METAB OLIC PANEL blood urea nitrogen 25 mg/dL 6-20 high Not Available [facility] [address] [place] [address], [address], 09/23/2022 15:55:28 09/24/19 23 09/23/2022 BASIC METAB OLIC PANEL creatinine 0.77 mg/dL 0.50-0 .95 normal Not Available [facility] [address] [place] [address], [address], 09/23/2022 15:55:28 09/24/19 23 09/23/2022 BASIC METAB OLIC PANEL BUN/creatini ne ratio 32 (calc ) 10-20 high Not Available [facility] [address] [place] [address], [address], 09/23/2022 15:55:28 09/24/19 23 09/23/2022 BASIC METAB OLIC PANEL sodium 142 mmol/ L 136-14 5 normal Not Available [facility] [address] [place] [address], [address], 09/23/2022 15:55:28 09/24/19 23 09/23/2022 BASIC METAB OLIC PANEL potassium 4.5 mmol/ L 3.4-5. 0 normal Not Available [facility] [address] [place] [address], [address], 09/23/2022 15:55:28 09/24/19 23 09/23/2022 BASIC METAB OLIC PANEL chloride 104 mmol/ L 98-107 normal Not Available [facility] [address] [place] [address], [address], 09/23/2022 15:55:28 09/24/19 23 09/23/2022 BASIC METAB OLIC PANEL carbon dioxide 25 mmol/ L 22-31 normal Not Available [facility] [address] [place] [address], [address], 09/23/2022 15:55:28 09/24/19 23 09/23/2022 BASIC METAB OLIC PANEL anion gap 13 (calc ) 7-25 normal Not Available [facility] [address] [place] [address], [address], 09/23/2022 15:55:28 09/24/19 23 09/23/2022 BASIC METAB OLIC PANEL calcium 11.0 mg/dL 8.6-10 .2 high Not Available [facility] [address] [place] [address], [address], 09/23/2022 15:55:28 09/24/19 23 09/23/2022 BASIC METAB [...] s/KDO QI/gf r_cal culat orPed Not Available [facility] [address] [place] [address], [address], 09/23/2022 15:55:28 09/24/1909/23/2022 LIPID PROFI LE HDL cholesterol 40 mg/dL 50-242 low Not Available [facility] [address] [place] [address], [address], 09/23/2022 15:55:29 09/24/19 23 09/23/2022 LIPID PROFI LE triglyceride s 183 mg/dL 0-149 high TRIGL YCERI DE RANGE S ANNA MARIE L: < 150 BORDE RLINE HIGH: 150 - 199 HIGH: 200 - 499 VERY HIGH: > OR = 500 Not Available [facility] [address] [place] [address], [address], 09/23/2022 15:55:29 09/24/19 23 09/23/2022 LIPID PROFI LE cholesterol 128 mg/dL 0-199 normal HOOD STERO L (TOTA L) RANGE S MASON ABLE: < 200 BORDE RLINE : 200 - 239 HIGHE R RISK: > 239 Not Available [facility] [address] [place] [address], [address], 09/23/2022 15:55:29 09/24/1909/23/2022 LIPID PROFI LE LDL cholesterol 51 mg/dL _(carrol c) 0-99 normal LDL HOOD STERO L RANGE S OPTIM AL: < 100 NEAR/ ABOVE OPTIM AL: 100 - 129 BORDE RLINE HIGH: 130 - 159 HIGH: 160 - 189 VERY HIGH: > OR = 190 Not Available [facility] [address] [place] [address], [address], 09/23/2022 15:55:29 09/24/1909/23/2022 HEPAT IC (LIVE R) PANEL AST 31 U/L 0-32 normal Not Available [facility] [address] [place] [address], [address], 09/23/2022 15:55:31 09/24/19 23 09/23/2022 HEPAT IC (LIVE R) PANEL ALT 28 U/L 0-33 normal Not Available [facility] [address] [place] [address], [address], 09/23/2022 15:55:31 09/24/19 23 09/23/2022 HEPAT IC (LIVE R) PANEL alkaline phosphatase 77 U/L 30-121 normal Not Available [facility] [address] [place] [address], [address], 09/23/2022 15:55:31 09/24/19 23 09/23/2022 HEPAT IC (LIVE R) PANEL total protein 8.3 g/dL 6.4-8. 3 normal Not Available [facility] [address] [place] [address], [address], 09/23/2022 15:55:31 09/24/19 23 09/23/2022 HEPAT IC (LIVE R) PANEL albumin 5.0 g/dL 3.5-5. 2 normal Not Available [facility] [address] [place] [address], [address], 09/23/2022 15:55:31 09/24/19 23 09/23/2022 HEPAT IC (LIVE R) PANEL bilirubin, total 0.3 mg/dL 0.1-1. 2 normal Not Available [facility] [address] [place] [address], [address], 09/23/2022 15:55:31 09/24/19 23 09/23/2022 HEPAT IC (LIVE R) PANEL bilirubin, direct <0.2 mg/dL 0.0-0. 3 normal Not Available [facility] [address] [place] [address], [address], 09/23/2022 15:55:31 09/24/19 23 09/23/2022 HEPAT IC (LIVE R) PANEL bilirubin, indirect see below mg/dL _(carrol c) 0.0-1. 0 normal Unabl e to calcu late Indir ect Bilir ubin. Not Available [facility] [address] [place] [address], [address], 09/23/2022 15:55:31 09/24/19 23 09/23/2022 MICRO ALBUM IN/CR EAT RATIO microalbumin , random 76 mg/L 0-19 high Not Available [facility] [address] [place] [address], [address], 09/23/2022 15:56:13 09/24/19 23 09/23/2022 MICRO ALBUM IN/CR EAT RATIO creatinine,u r,random 105 mg/dL normal NO ANNA MARIE L RANGE ESTAB LISHE D FOR RANDO M URINE . Not Available [facility] [address] [place] [address], [address], 09/23/2022 15:56:13 09/24/19 23 09/23/2022 MICRO ALBUM IN/CR EAT RATIO MA/creatinin e ratio 72 mcg/m g_cre at 0-29 high Not Available [facility] [address] [place] [address], [address], 09/23/2022 15:56:13 09/24/19 23 09/23/2022 TSH TSH 0.183 u[IU] /mL 0.270- 4.200 low Not Available [facility] [address] [place] [address], [address], 09/23/2022 15:59:57 09/24/19 23 09/23/2022 T4,FR EE T4,free 1.49 NG/dL 0.93-1 .70 normal Not Available [facility] [address] [place] [address], [address], 09/23/2022 15:59:59 09/24/19 23 09/23/2022 hemog lobin A1C, finge rstic k hemoglobin A1C % 7.4 % 4.0 - 5.6 Not Available [facility] [address] [place] [address], [address], 09/23/2022 14:33:14 09/24/19 23 09/23/2022 gluco se, finge rstic k, blood glucose, fingerstick 133 mg/dL 70 - 100 Not Available [facility] [address] [place], [address], 09/23/2022 14:32:58 01/15/20 23 01/14/2023 T4,FR EE T4,free 1.15 NG/dL 0.93-1 .70 normal Not Available [facility] [address] [place] [address], [address], 01/14/2023 16:58:11 01/15/20 23 01/14/2023 TSH TSH 1.800 u[IU] /mL 0.270- 4.200 normal Not Available [facility] [address] [place] [address], [address], 01/14/2023 16:58:13 01/15/20 23 01/14/2023 hemog lobin A1C, finge rstic k hemoglobin A1C % 7.0 % 4.0 - 5.6 Not Available [facility] [address] [place] [address], [address], 01/14/2023 15:14:24 01/15/20 23 01/14/2023 gluco se, finge rstic k, blood glucose, fingerstick 160 mg/dL 70 - 100 Not Available [facility] [address] [place], [address], 01/14/2023 15:07:11 02/06/20 23 06/12/2022 US, carot id arter y No observ ation record ed. [address] (Med Record) [address], [place], [address], 02/05/2023 10:50:23 Result Notes None recorded. Problems Name Problem SNOMED Code Status Onset Date Resolution Date Notes Provider Name and Address Organization Details Recorded Time Transient cerebral ischemia 626477922 Active 2015 From Automated Load;Provi jenny: Lakesha Samuels;Stat us: Active Sabrina Pierre [facility] 9 07:40:40 Disorder of nervous system due to type 2 diabetes mellitus 087037005 Active 2015 From Automated Load;Provi jenny: Lakesha Samuels;Stat us: Active Sabrina Pierre [facility] 9 07:40:40 Hypertensi ve disorder 42444471 Active 2015 From Automated Load;Provi jenny: Lakesha Samuels;Stat us: Active Sabrina Pierre [facility] 9 07:40:40 Hyperlipid emia 88477877 Active 2015 From Automated Load;Provi jenny: Lakesha Samuels;Stat us: Active Sabrina Pierre [facility] 9 07:40:40 Problem Notes None recorded. Procedures Surgical History Date Name Laterality Status Provider Name and Address Organization Details Recorded Time Cholecystectomy completed Deena mcmillan [facility] 09/02/2016 08:46:36 Other completed Deena Milton [facility] 09/02/2016 08:46:42 Imaging Results None recorded. Procedure Notes None recorded. Medical Equipment None Reported. Allergies Allergen ID Allergen Name Allergen Category Reaction Reaction Severity Criticality Documentation Date Start Date Code Code System Note Provider Name and Address Organization Details Recorded Time 020017 Levaquin medicatio n itching Not available Not available 03/27/20162008 70457 2 RxNorm React ion: ITCHI NG; Comme nt: Creat ed By: Jacqui Mckeon praveena Date: 009 3:23: 03 PM; Not Available [facility] 6 05:33:05 Medications Name Sig Start Date [...] -insulin regular; Dosage:a s directed ; [facility]; refills: 0; Quantity :1 Not Available [...] active Not Available Not Available Not Available [facility] ODT 75 mg disintegr ating tablet TAKE [...] Details Last Updated DateTime 09/02/2016 157.48 cm 27816.33 g 35.3 kg/m2 95 /min 134/94 mm[Hg] Deena Milton [facility] 7 10:02:31 Date Recorded Body weight Heart rate Systolic And Diastolic Provider Name and Address Organization Details Last Updated DateTime 09/23/2022 91406.03 g 86 /min 146/86 mm[Hg] Zoe Brown [facility] 09/23/2022 14:31:42 Date Recorded Body weight Body mass index (BMI) Body height Heart rate Systolic And Diastolic Provider Name and Address Organization Details Last Updated DateTime 01/14/2023 03057.18 g 36.3 kg/m2 152.4 cm 82 /min 140/82 mm[Hg] Irma Alejandro [facility] 3 15:09:12 Date Recorded Body height Body mass index (BMI) Body weight Heart rate Oxygen saturation Systolic And Diastolic Provider Name and Address Organization Details Last Updated DateTime 3 152.4 cm 36.9 kg/m2 56092.9 6 g 70 /min 97 % 122/80 mm[Hg] Nora Carolyn [facility] 3 14:45:12 Social History Question Answer Notes LastModified by Organizat ion Details LastModified Time Tobacco Smoking Status Never Smoker Deena jones [facility] 09/02/2016 08:46:26 Live Alone Or With Others? With Others Information not available 09/02/2016 Marital Status Informat ion not available 09/02/2016 Sex: Unknown Functional Status Question Answer Note LastModified by Organizat ion Details LastModified Time What is your level of alcohol consumption? None Information not available 09/02/2016 What is your occupation? Unemployed [employer] Information not available 09/02/2016 Mental Status None recorded. Family History Relationship Description Onset Age of this Age Resolved Age Notes LastModified by Organization Details LastModified Time Father [facility] Not available 07/2016 08:45:56 Father Hypertensive disorder [email or web address] Not available 07/2016 08:46:06 Father Parkinson's disease [email or web address] Not available 07/2016 08:46:10 Mother [facility] Not available 07/2016 08:46:00 Mother Cerebrovascu lar accident [facility] Not available 09/02/2016 08:46:16 Maternal Grandmother Diabetes [facility] Not available 07/2016 08:46:00 Medical History Condition Response Diabetes Y High Cholesterol Y Stroke Y Hypertension Y Depression Y Gynecological HistoryNo gynecological history recorded. Obstetrics History GPAL:G 0 P 0 0 0 0 Past Encounters Encounter ID Performer Location Encounter Start Date Encounter Closed Date Diagnosis/Indication Diagnosis SNOMED-CT Code Diagnosis ICD10 Code Diagnosis IMO Codes Diagnosis Note [id number] LAKESHA SAMUELS MD NEUROLOGY [facility] [address] [place] [address] 09/02/2016 09:09:14 09/02/2016 11:05:57 Transient cerebral ischemia 650703407 G45.9 New TIA, 02/27/16 with R sided numbness, w/u at [facility] reportedly negative incuding MRI. She has multiple vascular risk factors including diabetes, hypertensi on, hyperlipid emia, obesity, LYLE and previous stroke. 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 [...] PRN CC: Jeanine José APRN Essential hypertension 82142149 I10 see abpve Hyperlipidemia 08544057 E78.5 Diabetes mellitus 464080 09 E11.49 Obstructiv e sleep apnea syndrome 11486956 G47.33 [id number] IVAN MORALES MD ENDOCRINO [facility] [address] [place] [address] 09/23/2022 14:17:51 09/23/2022 15:07:26 Uncontrolled type 2 diabetes mellitus 087551093 E11.65 A1c of 7.4 in the office [...] months average [goal A1c] < 7 Hyperlipidemia 67400055 E78.5 LDL, direct above goalRechec k lipid panel and LFTs todayCouns eled about the importance of low-choles terol low saturated fat dietContin ue current gemfibrozi l as well as statin therapy Hypothyroidism 54362945 E03.9 TSH of 0.21 in January2Dose decreased to her current dose of levothyrox ine 75 mcgRecheck TSH and free T4 levels todayFurth er adjustment as appropriat ePatient verbalized understand ing and agreed with the above mentioned plan of care. [id number] IAVN MORALES MD ENDOCRINO [facility] [address] [place] [address] 01/14/2023 15:02:14 01/14/2023 16:16:28 Uncontrolled type 2 diabetes mellitus 785593184 E11.65 A1c of 7% down from 7.4 [...] months average [goal A1c] < 7 Hypothyroidism 40570023 E03.9 TSH of 0.21 in January2Dose decreased to her current dose of levothyrox ine 50 mcgRecheck TSH and free T4 levels todayFurth er adjustment as appropriat ePatient verbalized understand ing and agreed with the above mentioned plan of care. [id number] LAINE HANNON MD NEUROLOGY [facility] [address] [place] [address] 02/04/2023 14:30:03 02/05/2023 04:20:25 Migraine 84188922 G43.909 Obstructiv e sleep apnea syndrome 30919782 G47.33 Carotid ar golden stenosis 25480938 I65.29 Health Concerns Section Related Observation LastModified by Organization Detai ls LastModified Time None Recorded Concern Status LastModified by Organization Details LastModified Time None Recorded Advance Directives Directive None Recorded Payers Insurance Date Sequence Insurance Name Policy Number Policy Black Covered Member ID Black Member ID Guarantor Name 01/14/2023 1 [place] [id number] Robert Wild [id number] Elenita Wild 07/12/2023 1 [place] [id number] Robert Wild [id number] Elenita Wild Notes Date Note Type [...] P1 and P2 segments of the R [employer]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 I am concerned that moderate stenosis L ICA referable to symptoms of R sided numbness. In her history, sypmtoms were clearly not amnestic of the remote stroke but new and transient symptoms. Labs 04/01/17ESR - 13ANA - NEGATIVEAngiotensin Convert.Enzyme - 3 (L)ANCA - NEGATIVE LAKESHA SAMUELS MD [address] [place] [address], [address], [facility] 09/02/2016 10:40:41 3 text/html 52-year-old female with [...] Diabetes related eye disease: Previously seen at [facility]. 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 No meter provided today Hypoglycemia: None by history Exercise/activity: Diet: Number of daily meals: Excess carbs consumption: noTakes levothyroxine 75 mcg every a.m. dose IVAN MORALES MD [address] [place] [address], [address], [facility] 09/23/2022 15:04:22 3 text/html 52-year-old female with [...] complications:Diabetes related eye disease: Previously seen at [facility].Diabetes related kidney disease: History of kidney stoneDiabetic neuropathy: Peripheral diabetic neuropathyDiabetic macro-vascular disease: Yes history of CVA and residual right-sided hemiparesisSelf monitoring of blood glucose: No glucose meter provided today Takes levothyroxine 50 mcg down from 75 mcg every a.m. dose IVAN MORALES MD [address] [place] [address], [address], [facility] 01/14/2023 15:46:04 3 text/html ROS as noted in the HPI 53 yo new pt here today with muscle weakness referred by Mushtaq Brice, MDPreviously saw Dr. 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 Then TIA, 02/27/16 with R sided numbness.No imaging in [facility] only for blood thinning Has seen a neurologist in [facility] and they told her that her carotid [...] day, no napping LAINE HANNON MD [address] [facility] [place], [address], [facility] 02/05/2023 08:17:42 OBGyn Episode No OBEpisode recorded.
--- OUTSIDE RECORDS SUMMARY | 2025-04-18 20:44 | XMS_ITS | Clinical Summary ---
Author Organization [facility] Address [address] 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 More than 4 times per year 09/08/2023 Do you belong to any clubs o r organizations such as rastafari groups, unions, fraternal or athletic groups, or [...] more drinks on one occasion? Never 09/08/2023 [facility]at ional [facility] - Occupational [...] place to sleep or slept in a jail (including now)? 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 No confirmatory testing is required. Blood Venous blood specimen / Unknown Venipuncture / Unknown 09/05/2023 5:47 AM EDT 09/05/2023 6:08 AM EDT Issa Mccracken MD LAB BLOOD ORDERABLES Final Result [facility] [address] [place] [address] * Hepatitis C Antibody - ED (09/05/2023 5:47 AM EDT) Hepatitis C Antibody Negative Negative 09/05/2023 6:50 AM EDT [facility] Blood Venous blood specimen / Unknown Venipuncture / Unknown 09/05/2023 5:47 AM EDT 09/05/2023 6:08 AM EDT us Issa Mccracken MD LAB BLOOD ORDERABLES Final Result Performing Organization Address [facility] Co de Phone Number [facility] [address] [place] [address] * (ABNORMAL) Hemoglobin A1c (09/05/2023 5:47 AM EDT) Hemoglobin A1c 6.4(H) <5.7 % 09/05/2023 8:01 AM EDT [facility] Blood Venous blood specimen / Unknown Venipuncture / Unknown 09/05/2023 5:47 AM EDT 09/05/2023 5:56 AM EDT Narrative [facility]ALTH[facility]ARE [facility] - 09/05/2023 8:01 AM EDT HA1C Interpretive Data: Diagnosis of Diabetes: Diabetic > or = 6.5% Pre-diabetic 5.7 to 6.4% Non-diabetic < or = 5.6% Glycemic Targets for Type I and Type II Diabetics: Non- Adults <7.0% Adults <6.0% Children and Adolescents <7.5% Source: [place] [employer]. Standards of medical care in diabetes,2017. Diabetes Care.2017:40 (suppl 1):S1-S135. HbA1c assay performed by an ion-exchange chromatography method that is certified traceable to the DCCT. us Mushtaq Irene MD LAB BLOOD ORDERABLES Final Re sult Performing Organization Address City/[facility]/ZIP Co de Phone Number [facility] [address] [place] [address] * Cytology (03/14/2009 12:00 AM EST) Cerebrospinal fluid specimen (specimen) 03/14/2009 03/15/2009 9 :26 AM EST Narrative SUNQUEST - 03/18/2009 11:22 AM EST [facility] MR #: [id number] [facility] [address] [place], [place] [address] 1970 (Age: 39) FW Collect Date: 03/14/2009 00:00 Receipt Date: 03/15/2009 09:26 Page 1 DEPARTMENT OF PATHOLOGY AND LABORATORY MEDICINE CYTOPATHOLOGY REPORT Email: [email or web address] [id number] ATTENDING MD/Practitioner: Harjinder Curran MD Service: NANCY Location: 8S OTHER MD(S): Wallace Dhillon MD Reported: 03/18/2009 11:22 Collected: 03/14/2009 00:00 DIAGNOSIS A. CEREBROSPINAL FLUID: NO EVIDENCE OF MALIGNANCY. Electronically Signed Out FRANCES Cabrera[facility]) Clement Sosa M.D. PROCEDURES/ADDENDA GROSS DESCRIPTION: 7 ml's clear fluid. CLINICAL INFORMATION: CLINICAL DIAGNOSIS Vasculitis SPECIMEN DESCRIPTION: A: CEREBROSPINAL FLUID CYTOSPIN x 2 ICD: 447.6 ARTERITIS NOS (VASCULITIS, NOS) F: 15580 EXVAG/PAPI SNOMED CODES: A; [id number] A resident has participated in this service. A pathologist has performed and is responsible for the reported pathologic evaluation. [facility] Provider LAB PATHOLOGY ORDERABLES Fin al Result SUNQUEST from Last 3 Months or Most Recently Relevant to Health Maintenance Insurance y [address] [id number] EMLINDA Advance Directives * Full Code (Latest Code Status on File) Date Activated Date Inactivated Comments 09/05/2023 11:52 PM 09/07/2023 5:28 PM Question Answer Comments Patient has decision-making capacity? Yes * Full Code Date Activated Date Inactivated Comments 09/05/2023 5:25 AM 09/05/2023 5:42 PM Question Answer Comments Patient has decision-making capacity? 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
--- OUTSIDE RECORDS SUMMARY | 2025-04-18 20:44 | XMS_ITS ---
Author Organization Unknown ENCOUNTERS Encounter Performer Location Date Diagnosis Diagnosis Status Pre Admit [place] [address] [place] [address] [id number] Emergency [place] [address] [place] [address] [id number] [facility] [place] [address] [place] [place] [address] [id number] [facility] Pre Admit [place] [address] [place] [address] [id number] Pre Admit [place] [facility] [place] [address] [id number] Emergency [place] [address] [facility] [place] [id number] [facility] Emergency [place] [address] [place] [address] [phone] VINCENT *Note: Encounters from your own facility or health system may be excluded. Allergies, Adverse Reactions, Alerts Allergen Type Severity Identification Date levofloxacin drug allergy 0 [id number] Medications Name Date Quantity Days Supplied [facility] Number
== END 2025-04-18 23:59 | disposition home or self-care (01) ==
LOC: LAB.DROPOF 20:36
PROVIDERS: PCP Family Medicine; Visit Provider Nurse Practitioner Family
DX: N39.0 Urinary tract infection, site not specified (principal)
CPT/HCPCS: 87086

== ENCOUNTER 2025-04-30 14:55 | Outpatient (CLI) | payer BC, SELFPAY ==
--- NOTE | 2025-04-30 14:58 | XR_ITS ---
FINAL REPORT CLINICAL HISTORY: chest congestion COMPARISON: 12/06/2023 FINDINGS: PA and lateral views of the chest were obtained. The cardiac and mediastinal silhouettes are within normal limits. The lungs are clear. There is no pleural effusion or pneumothorax. No acute osseous abnormality is identified. IMPRESSION: No radiographic evidence of acute cardiac or pulmonary disease. Reviewed, Interpreted and Dictated by Alice Nieto MD Transcribed by Deena Khalil Authenticated and [facility]
--- OUTSIDE RECORDS SUMMARY | 2025-04-30 14:58 | XMS_ITS | Encounter Summary ---
[facility] Address [address] [place] [address] Care Team Providers Care Recreation Facilities Supervisor Name Role Phone Melissa Friend APRN Primary Care Provider [phone] Encounter Details Date Type Department Care Team (Late st Contact Info) Description 11/13/2024 Results Follow-Up [facility] ENDOCRINOLOGY [address] [place] [phone] Kareen Batista, [address] [place] [address] Social History Tobacco Use Types Packs/Day Years [...] on filedocumented in this encounter Care Teams Recreation Facilities Supervisor Relationship Specialty Start Date End Date Melissa Friend APRN [address] [place] [address] [place] [address] PCP - General Nurse Practitioner 07/12/24 documented as of this encounter
--- OUTSIDE RECORDS SUMMARY | 2025-04-30 14:58 | XMS_ITS | Clinical Summary ---
Author Organization [facility] Address [address] [place] [address] Care Team Providers Care Streetcar Repairer Helper Name Role Phone Melissa Friend SAP PORTAL ARCHITECT Primary Care Provider [phone] Source Comments This information has been disclosed [...] therelease of HIV test results or diagnoses. [id number] Health Allergies Active Allergy [...] history exists Insurance BLUE ACCESS Care Teams Streetcar Repairer Helper Relationship Specialty Start Date End Date Melissa Friend NP [address] [place] [address] [facility] [address] [place] [address] PCP - General 10/11/23
--- OUTSIDE RECORDS SUMMARY | 2025-04-30 14:58 | XMS_ITS | Clinical Summary ---
Author Organization [facility] Address [address] [place] [address] Care Team Providers Care Meter Supervisor Name Role Phone Melissa Friend APRN Primary Care Provider [phone] Allergies Active Allergy Reactions Criticality Noted Date [...] 3 months w/ EEG Chronic ischemic left IT PORTFOLIO MANAGER stroke 09/05/2023 Resolved Problems Problem Noted [...] week 09/08/2023 How often do you attend [facility] or catholic services? More than 4 times per year 09/08/2023 Do you belong to any clubs o r organizations such as scientology groups, unions, fraternal or athletic groups, or [...] more drinks on one occasion? Never 09/08/2023 [facility] of Occupat ional Health - Occupational Stress [...] place to sleep or slept in a care home (including now)? No 09/07/2023 CAGE ASSESSMENT Answer [...] drink first t rupesh in the morning (EYE-DIESEL ENGINE SPECIALIST) to steady your nerves or to get [...] 01/28/2018 UKY-Zoster Vaccines (1 of 2) 01/28/2018 [id number] Vaccine (2 - Shane risk series) 09/04/2020 [...] Reactive 09/05/2023 6:49 AM EDT [facility] Comment:Screening for HIV 1 & 2 antibodies, and P24 antigen is NONREACTIVE. No confirmatory testing is required. Blood Venous blood specimen / Unknown Venipuncture / Unknown 09/05/2023 5:47 AM EDT 09/05/2023 6:08 AM EDT Issa Mccracken MD LAB BLOOD ORDERABLES Final Result [facility] [address] [place] [address] * Hepatitis C Antibody - ED (09/05/2023 5:47 AM EDT) Hepatitis C Antibody Negative Negative 09/05/2023 6:50 AM EDT [facility]ARE [facility] Blood Venous blood specimen / Unknown Venipuncture / Unknown 09/05/2023 5:47 AM EDT 09/05/2023 6:08 AM EDT us Issa Mccracken MD LAB BLOOD ORDERABLES Final Result Performing Organization Address [facility] Co de Phone Number [facility] [address] [place] [address] * (ABNORMAL) Hemoglobin A1c (09/05/2023 5:47 AM [...] Adults <6.0% Children and Adolescents <7.5% Source: [place] [employer]. Standards of medical care in diabetes,2017. Diabetes Care.2017:40 (suppl 1):S1-S135. HbA1c assay performed by an ion-exchange chromatography method that is certified traceable to the DCCT. us Mushtaq Irene MD LAB BLOOD ORDERABLES Final Re sult Performing Organization Address City/[facility]/ZIP Co de Phone Number [facility] [address] [place] [address] * Cytology (03/14/2009 12:00 AM EST) Cerebrospinal fluid specimen (specimen) 03/14/2009 03/15/2009 9 :26 AM EST Narrative SUNQUEST - 03/18/2009 11:22 AM EST [facility] MR #: [id number] [facility] [address] [place], [place] [address] 1970 (Age: 39) FW Collect Date: 03/14/2009 00:00 Receipt Date: 03/15/2009 09:26 Page 1 DEPARTMENT OF PATHOLOGY AND LABORATORY MEDICINE CYTOPATHOLOGY REPORT Email: [email or web address] [id number] ATTENDING MD/Practitioner: Harjinder Curran MD Service: NANCY Location: 8S OTHER MD(S): Wallace Dhillon MD Reported: 03/18/2009 11:22 Collected: 03/14/2009 00:00 DIAGNOSIS A. CEREBROSPINAL FLUID: NO EVIDENCE OF MALIGNANCY. Electronically Signed Out FRANCES Cabrera([facility]) Clement Sosa M.D. PROCEDURES/ADDENDA GROSS DESCRIPTION: 7 ml's clear fluid. CLINICAL INFORMATION: CLINICAL DIAGNOSIS Vasculitis SPECIMEN DESCRIPTION: A: CEREBROSPINAL FLUID CYTOSPIN x 2 ICD: 447.6 ARTERITIS NOS (VASCULITIS, NOS) F: [id number] EXVAG/PAPI SNOMED CODES: A; [id number] A resident has participated in this service. A pathologist has performed and is responsible for the reported pathologic evaluation. [facility] Provider LAB PATHOLOGY ORDERABLES Fin al Result SUNQUEST from Last 3 Months or Most Recently Relevant to Health Maintenance Insurance y [address] [id number] MELINDA Advance Directives * Full Code (Latest Code Status on File) Date Activated Date Inactivated Comments 09/05/2023 11:52 PM 09/07/2023 5:28 PM Question Answer Comments Patient has decision-making capacity? Yes * Full Code Date Activated Date Inactivated Comments 09/05/2023 5:25 AM 09/05/2023 5:42 PM Question Answer Comments Patient has decision-making capacity? Yes Care Teams Meter Supervisor Relationship Specialty Start Date End Date Melissa Friend APRN [address] [place] [address] PCP - General 09/05/23
--- OUTSIDE RECORDS SUMMARY | 2025-04-30 14:58 | XMS_ITS | Clinical Summary ---
[facility] Address [address] [place] [address] Care Team Providers Care Drawing Tracer Name Role Phone Melissa Friend APRN Primary Care Provider [phone] Allergies Active Allergy Reactions Criticality Noted Date [...] Subscriber:Spouse Name:BILLYHUSSAIN Date of :1961 (Home) Address: [address] [place] [address] Payer ID:[id number] (IC) Type:Not on file Address: [address] PPO Care Teams Drawing Tracer Relationship Specialty Start Date End Date Melissa Friend APRN [address] [place] [address] PCP - General Nurse Practitioner 07/12/24
--- OUTSIDE RECORDS SUMMARY | 2025-04-30 14:58 | XMS_ITS | Encounter Summary ---
Author Organization [facility] Address [address] [place] [address] Care Team Providers Care Mastic Floor Layer Name Role Phone Melissa Friend APRN Primary Care Provider [phone] Encounter Details Date Type Department Care Team (Late st Contact Info) Description 10/30/2024 Telephone [facility] ENDOCRINOLOGY [address] [place] [address] Kareen Batista, [address] [place] [address] Social History Tobacco Use Types Packs/Day Years [...] on filedocumented in this encounter Care Teams Mastic Floor Layer Relationship Specialty Start Date End Date Melissa Friend APRN [address] [place] [address] PCP - General Nurse Practitioner 07/12/24 documented as of this encounter
[2025-04-30 20:37] LABS: Coronavirus 19, PCR Not Detected (NotDetected); Influenza A, PCR Not Detected (NotDetected); Influenza B, PCR Not Detected (NotDetected)
== END 2025-04-30 23:59 | disposition home or self-care (01) ==
LOC: RAD 14:56
PROVIDERS: PCP Family Medicine; Visit Provider Nurse Practitioner
DX: J06.9 Acute upper respiratory infection, unspecified (principal); N39.0 Urinary tract infection, site not specified
CPT/HCPCS: 71046; 87086; 87631